=== PATIENT | female | born 1950 | race Caucasian/White ===

== ENCOUNTER 2017-05-03 10:38 | Inpatient (IN) | payer BC, MEDICARE ==
[~2017-05-03] VITALS: Ht 160 cm; Wt 76.2 kg
[~2017-05-03 10:38] MED LIST: CA/D1TAB11 PO; ERGO500027 PO; FAMO40TA4 PO; FOLI1TAB16 PO; HYDR200T5 PO; LEVO500T59 PO; Lisinopril PO; METH2.5T PO; PANT40TA5 PO; PRED20TA PO; PROAIR HFA8.5 GM IH; TRAM50TA PO
[2017-05-03] MEDS ORDERED: IPRATRPIUM/ALBUTEROL 0.5/2.5MG 3 ML NEBU. NEB ONE (11:15)
--- NOTE | 2017-05-03 11:42 | RAD ---
AP portable chest radiograph 05/03/2017 Clinical History: Shortness of breath. An AP portable erect digital radiograph of the chest was obtained. Comparison study is dated 04/29/2014. The cardiac silhouette is normal in size. The thoracic aorta is tortuous. Atherosclerotic calcification of the thoracic aorta is seen. No acute pulmonary infiltrate is noted. No pneumothorax or pleural effusion is seen. Degenerative changes are seen involving the thoracic spine and both shoulders. Impression: No acute abnormality is seen.
--- NOTE | 2017-05-03 11:45 | EKG ---
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
[2017-05-03 11:49] LABS: BASO % 1 % (0-3); EOS % 1 % (0-3); HEMATOCRIT 32.1 % (36.0-47.0); HEMOGLOBIN 10.5 g/dL (12.0-15.5); LYMPH # 0.6 x10^3/uL (1.0-4.8); LYMPH % 17 % (24-48); MEAN CORPUSCULAR HEMOGLOBIN 31 pg (25-35); MEAN CORPUSCULAR HGB CONC 33 g/dL (31-37); MEAN CORPUSCULAR VOLUME 95 fL (79-100); MONO % 5 % (0-9); NEUT % 77 % (31-73); PLATELET COUNT 217 x10^3/uL (140-400); RED BLOOD COUNT 3.37 x10^6/uL (3.50-5.40); RED CELL DISTRIBUTION WIDTH 17.2 % (11.5-14.5); WHITE BLOOD COUNT 3.3 x10^3/uL (4.0-11.0)
[2017-05-03 11:54] LABS: CALCIUM 9.3 mg/dL (8.5-10.1); CREATININE 0.9 mg/dL (0.6-1.0); GFR 62.6; POTASSIUM 4.8 mmol/L (3.5-5.1)
[2017-05-03 11:59] LABS: ALBUMIN 2.7 g/dL (3.4-5.0); DIRECT BILIRUBIN 0.3 mg/dL (0.0-0.2); TOTAL BILIRUBIN 0.9 mg/dL (0.2-1.0); TOTAL PROTEIN 7.4 g/dL (6.4-8.2)
[2017-05-03] MEDS ORDERED: ONDANSETRON PF 4 MG/2 ML VIAL. IV PRN ×2 (14:00)
[2017-05-03] MEDS ORDERED: methylPREDNISolone SOD SUCC PF 125 MG/2 ML VIAL. IV ONE (14:00)
[2017-05-03] MEDS ORDERED: MORPHINE SULFATE 2 MG/ML DISP.SYRIN. IV PRN (14:00)
--- NOTE | 2017-05-03 14:04 | PHYS DOC ---
Past Medical History Past Medical History: Anemia, Arthritis, CAD, GERD, High Cholesterol, Hypertension Additional Past Medical Histor: OSTEOPOROSIS, LUPUS Past Surgical History: Tubal ligation, Other Additional Past Surgical Histo: back surgery, carpal tunnel, finger Alcohol Use: None Drug Use: None Adult General Chief Complaint Chief Complaint: SHORTNESS OF BREATH HPI HPI 67-year-old female presenting to the emergency department with worsening cough and shortness of breath over the past 2 days. She denies chest pain or fever. She describes a sharp pain with deep inspiration that is nonradiating intermittent. She denies any recent unilateral leg swelling or hemoptysis. Review of systems is negative for abdominal pain nausea vomiting or diaphoresis. All other review of systems is negative unless otherwise noted in history of present illness. ED course: 67-year-old female presenting with worsening cough and shortness of breath. Patient's oxygen saturation was dynamic in the emergency department going up and down being placed on oxygen been taken off oxygen being put on oxygen again. She received a nebulizer in the emergency department which improved her symptoms initially however then she required more oxygen after watching her for a few minutes. Otherwise her EKG was unremarkable. EKG reviewed by myself shows sinus rhythm with a regular rate. ST segments congruent. Not consistent with ACS. Chest x-ray reviewed by myself shows no obvious pneumothorax or hemothorax. No obvious infiltrate present. Otherwise blood work shows mild leukopenia and elevation and proBNP. The patient denies any history of congestive heart failure and denies being on water pill. On physical examination there is wheezing bilaterally with mild crackles on the right more than left. Patient has 1+ edema trace edema in her legs. Otherwise physical exam shows a soft nontender abdomen. Given the elevation in proBNP and need of oxygen, the patient was admitted to our hospital for nebulizers and steroids for presumed probable COPD exacerbation. I placed a cardiology consult given the patient's proBNP elevation. Patient may end up getting an echocardiogram in the hospital. The patient was then admitted. Review of Systems Review of Systems SEE ABOVE. Current Medications Current Medications Current Medications Medications (Trade) Dose Ordered Sig/Elizabeth Start Time Stop Time Status Last Admin Dose Admin Albuterol/ Ipratropium (Duoneb) 3 ml 1X ONCE 05/03/17 11:15 05/03/17 11:16 DC 05/03/17 11:33 3 ML Allergies Allergies Allergies Coded Allergies Type Severity Reaction Last Updated Verified NSAIDS (Non-Steroidal Anti-Inflamma Allergy Intermediate 04/29/14 No aspirin Allergy Intermediate 04/29/14 No Physical Exam Physical Exam SEE ABOVE Constitutional: Well developed, well nourished, no acute distress, non-toxic appearance. [] HENT: Normocephalic, atraumatic, bilateral external ears normal, oropharynx moist, no oral exudates, nose normal. [] Eyes: PERRLA, EOMI, conjunctiva normal, no discharge. [] Neck: Normal range of motion, no tenderness, supple, no stridor. [] Cardiovascular:Heart rate regular rhythm, no murmur [] Lungs & Thorax: SEE ABOVE Abdomen: Bowel sounds normal, soft, no tenderness, no masses, no pulsatile masses. [] Skin: Warm, dry, no erythema, no rash. [] Back: No tenderness, no CVA tenderness. [] Extremities: No tenderness, no cyanosis, no clubbing, ROM intact, no edema. [] Neurologic: Alert and oriented X 3, normal motor function, normal sensory function, no focal deficits noted. [] Psychologic: Affect normal, judgement normal, mood normal. [] Current Patient Data Vital Signs Vital Signs Date Time Temp Pulse Resp B/P (MAP) Pulse Ox O2 Delivery O2 Flow Rate FiO2 05/03/17 13:48 72 16 112/68 (83) 100 Nasal Cannula 2.0 05/03/17 11:26 98.0 98.0 Lab Values Laboratory Tests Test 05/03/17 11:25 White Blood Count 3.3 x10^3/uL (4.0-11.0) L Red Blood Count 3.37 x10^6/uL (3.50-5.40) L Hemoglobin 10.5 g/dL (12.0-15.5) L Hematocrit 32.1 % (36.0-47.0) L Mean Corpuscular Volume 95 fL (79-100) Mean Corpuscular Hemoglobin 31 pg (25-35) Mean Corpuscular Hemoglobin Concent 33 g/dL (31-37) Red Cell Distribution Width 17.2 % (11.5-14.5) H Platelet Count 217 x10^3/uL (140-400) Neutrophils (%) (Auto) 77 % (31-73) H Lymphocytes (%) (Auto) 17 % (24-48) L Monocytes (%) (Auto) 5 % (0-9) Eosinophils (%) (Auto) 1 % (0-3) Basophils (%) (Auto) 1 % (0-3) Neutrophils # (Auto) 2.5 x10^3uL (1.8-7.7) Lymphocytes # (Auto) 0.6 x10^3/uL (1.0-4.8) L Monocytes # (Auto) 0.2 x10^3/uL (0.0-1.1) Eosinophils # (Auto) 0.0 x10^3/uL (0.0-0.7) Basophils # (Auto) 0.0 x10^3/uL (0.0-0.2) Sodium Level 136 mmol/L (136-145) Potassium Level 4.8 mmol/L (3.5-5.1) Chloride Level 101 mmol/L (98-107) Carbon Dioxide Level 30 mmol/L (21-32) Anion Gap 5 (6-14) L Blood Urea Nitrogen 16 mg/dL (7-20) Creatinine 0.9 mg/dL (0.6-1.0) Estimated GFR (Cockcroft-Gault) 62.6 Glucose Level 86 mg/dL (70-99) Calcium Level 9.3 mg/dL (8.5-10.1) Total Bilirubin 0.9 mg/dL (0.2-1.0) Direct Bilirubin 0.3 mg/dL (0.0-0.2) H Aspartate Amino Transferase (AST) 38 U/L (15-37) H Alanine Aminotransferase (ALT) 33 U/L (14-59) Alkaline Phosphatase 113 U/L (46-116) Troponin I Quantitative < 0.017 ng/mL (0.000-0.055) TD-Qsm-R-Type Natriuretic Peptide 2136 pg/mL (0-124) H Total Protein 7.4 g/dL (6.4-8.2) Albumin 2.7 g/dL (3.4-5.0) L Lipase 104 U/L (73-393) Laboratory Tests 05/03/17 11:25 Laboratory Tests 05/03/17 11:25 EKG EKG [] Radiology/Procedures Radiology/Procedures [] Course & Med Decision Making Course & Med Decision Making Pertinent Labs and Imaging studies reviewed. (See chart for details) [] Dragon Disclaimer Dragon Disclaimer This electronic medical record was generated, in whole or in part, using a voice recognition dictation system. Departure Departure Impression: Primary Impression: COPD (chronic obstructive pulmonary disease) with acute bronchitis Additional Impression: Elevated brain natriuretic peptide (BNP) level Disposition: ADMITTED INPATIENT Condition: STABLE Referrals: ZOHREH DEMPSEY MD (PCP) Problem Qualifiers FRANCIS MARES MD May 03, 2017 14:04
[2017-05-03] MEDS ORDERED: MORPHINE SULFATE 4 MG/ML DISP.SYRIN. IV PRN (14:15)
[2017-05-03] MEDS ORDERED: ATORVASTATIN CA80 MG PO (16:47)
[2017-05-03] MEDS ORDERED: ALEN70TA5 PO (16:47)
[2017-05-03] MEDS ORDERED: METO-239 PO (16:47)
[2017-05-03] MEDS ORDERED: CLOP75TA PO (16:47)
[2017-05-03] MEDS ORDERED: AZAT50TA PO ×2 (16:47)
[2017-05-03] MEDS ORDERED: ASPI-482 PO (16:47)
[2017-05-03] MEDS ORDERED: traMADol 50 MG TABLET PO PRN (18:30)
[2017-05-03 19:00] VITALS: BP 100/66
[2017-05-03] MEDS: HYDROXYCHLOROQUINE 200 MG TABLET PO SCH (20:36)
[2017-05-03 23:00] VITALS: BP 114/64
[2017-05-04 03:00] VITALS: BP 104/70
[2017-05-04 05:23] LABS: BASO % 0 % (0-3); EOS % 0 % (0-3); HEMATOCRIT 30.3 % (36.0-47.0); HEMOGLOBIN 10.2 g/dL (12.0-15.5); LYMPH # 0.1 x10^3/uL (1.0-4.8); LYMPH % 3 % (24-48); MEAN CORPUSCULAR HEMOGLOBIN 32 pg (25-35); MEAN CORPUSCULAR HGB CONC 34 g/dL (31-37); MEAN CORPUSCULAR VOLUME 94 fL (79-100); MONO % 1 % (0-9); NEUT % 95 % (31-73); PLATELET COUNT 214 x10^3/uL (140-400); RED BLOOD COUNT 3.23 x10^6/uL (3.50-5.40); RED CELL DISTRIBUTION WIDTH 16.9 % (11.5-14.5); WHITE BLOOD COUNT 4.3 x10^3/uL (4.0-11.0)
[2017-05-04 06:43] LABS: CALCIUM 9.2 mg/dL (8.5-10.1); CREATININE 0.9 mg/dL (0.6-1.0); GFR 62.6; POTASSIUM 4.7 mmol/L (3.5-5.1)
[2017-05-04 07:00] VITALS: BP 121/72
[2017-05-04] MEDS: ASPIRIN ENTERIC COATED 81 MG TABLET.DR. PO SCH (08:30)
[2017-05-04] MEDS: CLOPIDOGREL BISULFATE 75 MG TABLET PO SCH (08:30)
[2017-05-04] MEDS: HYDROXYCHLOROQUINE 200 MG TABLET PO SCH ×2 (08:30→08:36)
[2017-05-04] MEDS: FOLIC ACID 1 MG TABLET. PO SCH (08:30)
[2017-05-04] MEDS: azaTHIOprine 50 MG TABLET PO SCH (08:31)
[2017-05-04] MEDS: METOPROLOL SUCC 24HR ER 25 MG TAB.ER.24H. PO SCH (08:31)
[2017-05-04] MEDS: PANTOPRAZOLE 40 MG TABLET.DR. PO SCH (08:32)
[2017-05-04] MEDS ORDERED: ERGOCALCIFEROL (VITAMIN D2) 50,000 UNIT CAPSULE. PO SCH (09:00)
--- NOTE | 2017-05-04 09:10 | PDOC ---
Provider Note Provider Note [id number] acute resp fail ae of copd acute bronchitis smoker see orders. RHIANNON MARMOLEJO MD May 04, 2017 09:10
[2017-05-04 09:15] LABS: % EOS 1 % (0-5); PLT ESTIMATE ADEQUATE (ADEQUATE)
[2017-05-04] MEDS ORDERED: MAGNESIUM HYDROXIDE 2,400 MG/30 ML ORAL.SUSP. PO PRN (09:15)
[2017-05-04] MEDS ORDERED: ACETAMINOPHEN 325 MG TABLET. PO PRN (09:15)
[2017-05-04] MEDS ORDERED: AZITHROMYCIN 250 MG TABLET. PO ONE (09:30)
[2017-05-04] MEDS ORDERED: predniSONE 20 MG TABLET PO SCH (09:30)
[2017-05-04] MEDS ORDERED: ALBUTEROL SULFATE 2.5 MG/3 ML NEBU. NEB PRN (09:30)
--- NOTE | 2017-05-04 09:33 | PDOC ---
Provider Note Provider Note history and physical dictated # [id number] ZOHREH DEMPSEY MD May 04, 2017 09:33
[2017-05-04] MEDS: methylPREDNISolone SOD SUCC PF 40 MG/ML VIAL. IV SCH ×3 (10:16→21:01)
[2017-05-04 11:00] VITALS: BP 128/65
[2017-05-04] MEDS: IPRATRPIUM/ALBUTEROL 0.5/2.5MG 3 ML NEBU. NEB SCH ×4 (11:06→19:25)
[2017-05-04] MEDS: BUDESONIDE 0.5 MG/2 ML NEBU. NEB SCH ×2 (11:06→19:25)
[2017-05-04] MEDS ORDERED: CONTRAST GIVEN MC PRN (11:15)
[2017-05-04] MEDS ORDERED: IOHEXOL 300 MG/ML 75 ML VIAL IV ONE (11:30)
--- NOTE | 2017-05-04 12:02 | RAD ---
CT scan of the chest without contrast 05/04/2017 Clinical history: Shortness of breath. Technique: Unenhanced, contiguous, 5 mm axial sections were obtained through the chest and upper abdomen. One or more of the following individualized dose reduction techniques were utilized for this study: 1. Automated exposure control. 2. Adjustment of the mA and/or kV according to patient size. 3. Use of iterative reconstruction technique. Findings: Comparison study is dated 12/08/2015. Moderate atherosclerotic calcification of the thoracic aorta and its branches is noted. Extensive coronary artery calcifications are seen. The heart is borderline enlarged. The thoracic aorta is ectatic and tortuous, unchanged. Slightly prominent mediastinal lymph nodes are seen which measure 1 to 1.2 cm in size. These are unchanged. Moderate emphysematous changes are seen involving both lungs. Patchy areas of infiltrate/atelectasis are seen involving both lower lobes new since previous examination. No pneumothorax or pleural effusion is seen. Images through the upper abdomen demonstrate atherosclerotic calcification abdominal aorta. Minimal S shaped curvature of the thoracic lumbar spine is seen. Impression: Patchy areas of infiltrate/atelectasis are seen involving both lower lobes.
--- NOTE | 2017-05-04 12:27 | PDOC2 ---
CONSULT Date of Consult Date of Consult DATE: 05/04/17 TIME: 12:26 Reason for Consult Reason for Consult: Elevated BNP level Referring Physician Referring Physician: Dr. Desir Identification/Chief Complaint Chief Complaint Shortness of breath Problems: Source Source: Chart review, Patient History of Present Illness Reason for Visit: 67-year-old female presented with progressive shortness of breath and cough and was diagnosed with acute respiratory failure from acute COPD exacerbation. Cardiology has been consulted for elevated BNP level. Patient stated that her dyspnea has improved since admission. She denied any chest pain, orthopnea, palpitations or syncope. Past Medical History Cardiovascular: No pertinent hx Pulmonary: No pertinent hx CENTRAL NERVOUS SYSTEM: Other GI: GERD Heme/Onc: No pertinent hx Hepatobiliary: No pertinent hx Psych: No pertinent hx Musculoskeletal: low back pain, Osteoarthritis, Other Rheumatologic: Rheumatoid arthritis Infectious disease: No pertinent hx Renal/: No pertinent hx Endocrine: No pertinent hx Past Surgical History Past Surgical History: Tubal Ligation, Tonsillectomy, Other Family History Family History: Coronary Artery Disease Social History ALCOHOL: none Drugs: None Lives: with Family Domestic Violence: Neg Current Problem List Problem List Problems Medical Problems: (1) COPD (chronic obstructive pulmonary disease) with acute bronchitis Status: Acute (2) Elevated brain natriuretic peptide (BNP) level Status: Acute Current Medications Current Medications Current Medications Albuterol/ Ipratropium (Duoneb) 3 ml 1X ONCE NEB Last administered on 11:33; Start 05/03/17 at 11:15; Stop 05/03/17 at 11:16; Status DC Methylprednisolone Sodium Succinate (SOLU-Medrol 125MG VIAL) 125 mg 1X ONCE IV Last administered on 05/03/17 14:00; Start 05/03/17 at 14:00; Stop 05/03/17 at 14:01; Status DC Ondansetron HCl (Zofran) 4 mg PRN Q8HRS PRN IV NAUSEA/VOMITING; Start 05/03/17 at 14:00; Stop 05/04/17 at 13:59; Status Cancel Morphine Sulfate 2 mg PRN Q2HR PRN IV PAIN; Start 05/03/17 at 14:00; Stop 05/04 at 13:59; Status Cancel Ondansetron HCl (Zofran) 4 mg PRN Q8HRS PRN IV NAUSEA/VOMITING; Start 05/03/17 at 14:00; Stop 05/04/17 at 13:59 Morphine Sulfate 2 mg PRN Q2HR PRN IV PAIN; Start 05/03/17 at 14:15; Stop 05/04 at 14:14 Aspirin (Ecotrin) 81 mg DAILY PO Last administered on 05/04/17 08:30; Start at 09:00 Azathioprine (Imuran) 100 mg DAILY PO Last administered on 05/04/17 08:31; Start 05/04/17 at 09:00 Clopidogrel Bisulfate (Plavix) 75 mg DAILY PO Last administered on 05/04/17 08 :30; Start 05/04/17 at 09:00 Ergocalciferol (Vitamin D2) 50,000 unit Soliz PO Last administered on 05/04/17 08 :30; Start 05/04/17 at 09:00 Folic Acid (Folic Acid) 1 mg DAILY PO Last administered on 05/04/17 08:30; Start 05/04/17 at 09:00 Hydroxychloroquine Sulfate (Plaquenil) 200 mg BID PO Last administered on 08:36; Start 05/03/17 at 21:00 Metoprolol Succinate (Toprol Xl) 25 mg DAILY PO Last administered on 05/04/17 08:31; Start 05/04/17 at 09:00 Pantoprazole Sodium (Protonix) 40 mg DAILYAC PO Last administered on 05/04/17 08:32; Start 05/04/17 at 07:30 Tramadol HCl (Ultram) 2,500 mg PRN QID PRN PO PAIN; Start 05/03/17 at 18:30; Status Cancel Albuterol/ Ipratropium (Duoneb) 3 ml RTQID NEB Last administered on 05/04/17 11:06; Start 05/04/17 at 09:30 Prednisone (Prednisone) 40 mg DAILY PO ; Start 05/04/17 at 09:30; Stop 05/04/17 at 09:30; Status DC Budesonide (Pulmicort) 0.5 mg RTBID NEB Last administered on 05/04/17 11:06; Start 05/04/17 at 09:30 Ceftriaxone Sodium 1 gm/ Sodium Chloride 50 ml @ 100 mls/hr Q24H IV Last administered on 05/04/17 10:17; Start 05/04/17 at 10:00 Azithromycin (Zithromax) 500 mg 1X ONCE PO Last administered on 05/04/17 10: 17; Start 05/04/17 at 09:30; Stop 05/04/17 at 09:31; Status DC Azithromycin (Zithromax) 250 mg DAILY PO ; Start 05/05/17 at 09:00 Atorvastatin Calcium (Lipitor) 10 mg QHS PO ; Start 05/04/17 at 21:00 Methylprednisolone Sodium Succinate (SOLU-Medrol 40MG VIAL) 40 mg Q8HRS IV Last administered on 05/04/17 10:16; Start 05/04/17 at 10:00 Albuterol Sulfate (Ventolin Neb Soln) 2.5 mg PRN Q4HRS PRN NEB SHORTNESS OF BREATH; Start 05/04/17 at 09:30 Acetaminophen (Tylenol) 650 mg PRN Q6HRS PRN PO MILD PAIN / TEMP; Start at 09:15 Magnesium Hydroxide (Milk Of Magnesia) 2,400 mg PRN DAILY PRN PO CONSTIPATION; Start 05/04/17 at 09:15 Iohexol (Omnipaque 300 Mg/ml) 75 ml 1X ONCE IV Last administered on 05/04/17 12:01; Start 05/04/17 at 11:30; Stop 05/04/17 at 11:31; Status DC Info (Do NOT chart on this entry -- for MONITORING) 1 each PRN DAILY PRN MC SEE COMMENTS; Start 05/04/17 at 11:15; Stop 05/06/17 at 11:14 Active Scripts Active [Lisinopril] 2.5 MG Tablet 2.5 Mg PO DAILY Levaquin (Levofloxacin) 500 Mg Tablet 500 Mg PO DAILY06 Reported Alendronate Sodium 70 Mg Tablet 70 Mg PO WEEKLY Azathioprine 50 Mg Tablet 2 Tab PO DAILY Azathioprine 50 Mg Tablet 50 Mg PO Aspir 81 (Aspirin) 81 Mg Tablet.dr 1 Tab PO DAILY Metoprolol Succinate ( Xl ) (Metoprolol Succinate) 25 Mg Tab.er.24h 1 Tab PO DAILY Atorvastatin Calcium 80 Mg Tablet 1 Tab PO DAILY Clopidogrel (Clopidogrel Bisulfate) 75 Mg Tablet 75 Mg PO DAILY Vitamin D2 (Ergocalciferol (Vitamin D2)) 50,000 Unit Capsule 50,000 Unit PO Caltrate 600+D3+Min Chew Tab (Ca/D3/Mag/Zinc/Osvaldo/Marek/Mgbor) 1 Each Tab.chew 1 Each PO Prednisone 20 Mg Tablet 1 Tab PO DAILY Indication: steroid Next dose: 05/02/14 Taper as directed. Proair Hfa Inhaler (Albuterol Sulfate) 8.5 Gm Hfa.aer.ad 2 Puff IH PRN Q4-6HRS Indication: shortness of breath Next dose: 05/01/14 as needed Famotidine 40 Mg Tablet 40 Mg PO HS Indication: GERD Next dose: 05/01/14 bedtime Tramadol Hcl 50 Mg Tablet 50 Tab PO QIDPRN PRN Indication: pain NExt dose: 05/01/14 pm Hydroxychloroquine Sulfate 200 Mg Tablet 1 Tab PO BID Indication: arthritis Next dose: 05/01/14 pm Folic Acid 1 Mg Tablet 1 Tab PO DAILY INdication: supplement Next dose: 05/02/14 am Pantoprazole Sodium 40 Mg Tablet.dr 1 Tab PO DAILY Indication: stomach Next dose: 05/02/14 am Allergies Allergies: Coded Allergies: NSAIDS (Non-Steroidal Anti-Inflamma (Verified Allergy, Intermediate, ) aspirin (Verified Allergy, Intermediate, 05/04/17) ROS PSYCHOLOGICAL ROS: No: Hallucinations Eyes: No Loss of vision HEENT: No: Epistaxis Respiratory: YES: Shortness of breath, No: Hemoptysis Cardiovascular: No Chest Pain Gastrointestinal: No Vomiting, No Diarrhea Genitourinary: No Hematuria Neurological: No Dizziness, No Seizures Skin: No Rash Physical Exam General: Alert, Oriented X3 HEENT: Atraumatic, PERRLA Lungs: Other (scattered rhonchi) Heart: Regular rate Abdomen: Soft, No tenderness Extremities: Other (trace edema) Psych/Mental Status: Mood NL Vitals VITALS Vital Signs Date Time Temp Pulse Resp B/P (MAP) Pulse Ox O2 Delivery O2 Flow Rate FiO2 05/04/17 11:09 99 Nasal Cannula 2.0 05/04/17 11:00 98.8 74 18 128/65 (86) 98.8 Labs Labs Laboratory Tests Test 05/03/17 11:25 05/03/17 19:35 05/04/17 02:30 05/04/17 03:30 White Blood Count 3.3 x10^3/uL (4.0-11.0) 4.3 x10^3/uL (4.0-11.0) Red Blood Count 3.37 x10^6/uL (3.50-5.40) 3.23 x10^6/uL (3.50-5.40) Hemoglobin 10.5 g/dL (12.0-15.5) 10.2 g/dL (12.0-15.5) Hematocrit 32.1 % (36.0-47.0) 30.3 % (36.0-47.0) Mean Corpuscular Volume 95 fL (79-100) 94 fL (79-100) Mean Corpuscular Hemoglobin 31 pg (25-35) 32 pg (25-35) Mean Corpuscular Hemoglobin Concent 33 g/dL (31-37) 34 g/dL (31-37) Red Cell Distribution Width 17.2 % (11.5-14.5) 16.9 % (11.5-14.5) Platelet Count 217 x10^3/uL (140-400) 214 x10^3/uL (140-400) Neutrophils (%) (Auto) 77 % (31-73) 95 % (31-73) Lymphocytes (%) (Auto) 17 % (24-48) 3 % (24-48) Monocytes (%) (Auto) 5 % (0-9) 1 % (0-9) Eosinophils (%) (Auto) 1 % (0-3) 0 % (0-3) Basophils (%) (Auto) 1 % (0-3) 0 % (0-3) Neutrophils # (Auto) 2.5 x10^3uL (1.8-7.7) 4.1 x10^3uL (1.8-7.7) Lymphocytes # (Auto) 0.6 x10^3/uL (1.0-4.8) 0.1 x10^3/uL (1.0-4.8) Monocytes # (Auto) 0.2 x10^3/uL (0.0-1.1) 0.0 x10^3/uL (0.0-1.1) Eosinophils # (Auto) 0.0 x10^3/uL (0.0-0.7) 0.0 x10^3/uL (0.0-0.7) Basophils # (Auto) 0.0 x10^3/uL (0.0-0.2) 0.0 x10^3/uL (0.0-0.2) Sodium Level 136 mmol/L (136-145) Potassium Level 4.8 mmol/L (3.5-5.1) Chloride Level 101 mmol/L (98-107) Carbon Dioxide Level 30 mmol/L (21-32) Anion Gap 5 (6-14) Blood Urea Nitrogen 16 mg/dL (7-20) Creatinine 0.9 mg/dL (0.6-1.0) Estimated GFR (Cockcroft-Gault) 62.6 Glucose Level 86 mg/dL (70-99) Calcium Level 9.3 mg/dL (8.5-10.1) Total Bilirubin 0.9 mg/dL (0.2-1.0) Direct Bilirubin 0.3 mg/dL (0.0-0.2) Aspartate Amino Transf (AST/SGOT) 38 U/L (15-37) Alanine Aminotransferase (ALT/SGPT) 33 U/L (14-59) Alkaline Phosphatase 113 U/L (46-116) Troponin I Quantitative < 0.017 ng/mL (0.000-0.055) < 0.017 ng/mL (0.000-0.055) < 0.017 ng/mL (0.000-0.055) IJ-Gtp-E-Type Natriuretic Peptide 2136 pg/mL (0-124) Total Protein 7.4 g/dL (6.4-8.2) Albumin 2.7 g/dL (3.4-5.0) Lipase 104 U/L (73-393) Segmented Neutrophils % 84 % (35-66) Band Neutrophils % 3 % (0-9) Lymphocytes % 11 % (24-48) Monocytes % 1 % (0-10) Eosinophils % 1 % (0-5) Platelet Estimate Adequate (ADEQUATE) Test 05/04/17 05:00 05/04/17 09:40 Sodium Level 138 mmol/L (136-145) Potassium Level 4.7 mmol/L (3.5-5.1) Chloride Level 100 mmol/L (98-107) Carbon Dioxide Level 26 mmol/L (21-32) Anion Gap 12 (6-14) Blood Urea Nitrogen 20 mg/dL (7-20) Creatinine 0.9 mg/dL (0.6-1.0) Estimated GFR (Cockcroft-Gault) 62.6 Glucose Level 172 mg/dL (70-99) Calcium Level 9.2 mg/dL (8.5-10.1) D-Dimer (Juliana) 2.40 ug/mlFEU (0.00-0.50) Laboratory Tests Test 05/03/17 19:35 05/04/17 02:30 05/04/17 03:30 05/04/17 05:00 Troponin I Quantitative < 0.017 ng/mL (0.000-0.055) < 0.017 ng/mL (0.000-0.055) White Blood Count 4.3 x10^3/uL (4.0-11.0) Red Blood Count 3.23 x10^6/uL (3.50-5.40) Hemoglobin 10.2 g/dL (12.0-15.5) Hematocrit 30.3 % (36.0-47.0) Mean Corpuscular Volume 94 fL (79-100) Mean Corpuscular Hemoglobin 32 pg (25-35) Mean Corpuscular Hemoglobin Concent 34 g/dL (31-37) Red Cell Distribution Width 16.9 % (11.5-14.5) Platelet Count 214 x10^3/uL (140-400) Neutrophils (%) (Auto) 95 % (31-73) Lymphocytes (%) (Auto) 3 % (24-48) Monocytes (%) (Auto) 1 % (0-9) Eosinophils (%) (Auto) 0 % (0-3) Basophils (%) (Auto) 0 % (0-3) Neutrophils # (Auto) 4.1 x10^3uL (1.8-7.7) Lymphocytes # (Auto) 0.1 x10^3/uL (1.0-4.8) Monocytes # (Auto) 0.0 x10^3/uL (0.0-1.1) Eosinophils # (Auto) 0.0 x10^3/uL (0.0-0.7) Basophils # (Auto) 0.0 x10^3/uL (0.0-0.2) Segmented Neutrophils % 84 % (35-66) Band Neutrophils % 3 % (0-9) Lymphocytes % 11 % (24-48) Monocytes % 1 % (0-10) Eosinophils % 1 % (0-5) Platelet Estimate Adequate (ADEQUATE) Sodium Level 138 mmol/L (136-145) Potassium Level 4.7 mmol/L (3.5-5.1) Chloride Level 100 mmol/L (98-107) Carbon Dioxide Level 26 mmol/L (21-32) Anion Gap 12 (6-14) Blood Urea Nitrogen 20 mg/dL (7-20) Creatinine 0.9 mg/dL (0.6-1.0) Estimated GFR (Cockcroft-Gault) 62.6 Glucose Level 172 mg/dL (70-99) Calcium Level 9.2 mg/dL (8.5-10.1) Test 05/04/17 09:40 D-Dimer (Juliana) 2.40 ug/mlFEU (0.00-0.50) Assessment/Plan Assessment/Plan 1. Acute respiratory failure secondary to acute COPD exacerbation. Symptoms improved since admission. Continue current treatment per pulmonary team. 2. Elevated BNP level: Patient does not have any overt clinical evidence for congestive heart failure. Cardiac enzymes negative. Chest x-ray did not show any increased pulmonary vascularity. CT chest did not show any pulmonary embolism. Check 2-D echocardiogram to assess LV systolic and diastolic function. 3. Hypertension: Well-controlled. 4. Hyperlipidemia: Continue statin therapy Thank you for your consultation ADELITA LEMONS MD May 04, 2017 12:27
--- NOTE | 2017-05-04 12:45 | RAD ---
CTA of the chest with contrast (pulmonary embolism protocol) 05/04/2017 Clinical History: Cough and shortness of breath.. Technique: After the intravenous administration of 75 mL of Omnipaque 300, contiguous, 0.625 mm axial sections were obtained through the chest. 2 mm reconstructed axial 3-D MIP coronal and sagittal reconstructed images were obtained. One or more of the following individualized dose reduction techniques were utilized for this study: 1. Automated exposure control. 2. Adjustment of the mA and/or kV according to patient size. 3. Use of iterative reconstruction technique. Findings: Comparison study is dated earlier today. No filling defects are seen within the major branches of either pulmonary artery. There is no CT evidence of pulmonary embolism. Moderate atherosclerotic calcification of the thoracic aorta is seen. Extensive coronary artery calcifications are noted. The heart is borderline enlarged. The thoracic aorta is ectatic and tortuous, unchanged. Moderate emphysematous changes are seen involving both lungs. Patchy areas of infiltrate/atelectasis are seen involving both lower lobes, unchanged. No pneumothorax or pleural effusion is seen. Impression: No CT evidence of pulmonary embolism.
[2017-05-04 15:06] VITALS: BP 125/68
[2017-05-04 19:00] VITALS: BP 97/58
--- NOTE | 2017-05-04 20:12 | CONS ---
DATE OF CONSULTATION: 05/04/2017 REASON FOR CONSULTATION: I was asked to see this 67-year-old lady for acute respiratory failure, acute exacerbation of COPD. HISTORY OF PRESENT ILLNESS: She does have history of 55-bzcc-stcy smoking, continues to smoke half pack per day. She is on oxygen at night. She does have COPD. She is followed by Dr. Neal. She started to have increased shortness of breath, cough, nasal congestion, clear to sputum production a few days ago. Her shortness of breath is getting worse. She presented to the Emergency Room. Her oxygen saturation was low at the beginning, she was started on oxygen. She has not had chest tightness, but mild chest pain. She denies gastroesophageal reflux symptoms. PAST MEDICAL HISTORY: Coronary artery disease; lupus; COPD, on nocturnal oxygen; gastroesophageal reflux disease; and hypertension. ALLERGIES: NSAIDs. MEDICATIONS: Currently, she is on Toprol, folic acid, vitamin D, Plavix, Imuran, Ecotrin, Protonix, Plaquenil and Ultram. SOCIAL HISTORY: History of 32-[id number]-yujs smoking, continues to smoke half pack per day. FAMILY HISTORY: Hypertension. REVIEW OF SYSTEMS: As mentioned as above, other systems otherwise negative. PHYSICAL EXAMINATION: GENERAL: This is pale lady. VITAL SIGNS: Her O2 saturation on 3 liters of oxygen is 96%, respiratory rate 18, heart rate 88, blood pressure 121/72, temperature 98.2. HEENT: Normocephalic, atraumatic. Pupils equal, round, reactive to light. Throat is clear. Nose: There is inflamed mucosa. NECK: There is no JVD, lymphadenopathy or thyromegaly. CARDIOVASCULAR: Regular rate and rhythm. PMI is nondisplaced. CHEST: Inspection is normal. LUNGS: There is end-expiratory wheezing. ABDOMEN: Soft. Bowel sounds are good. There is no mass. EXTREMITIES: There is no edema. LYMPHATICS: There is no lymphadenopathy. NEUROLOGIC: Alert and oriented. SKIN: Warm. LABORATORY DATA: I reviewed the following lab data: Chest x-ray does not show any infiltrate. WBC 4.3, hemoglobin 10.2, platelets 214. Sodium 138, potassium 4.7, chloride 100, CO2 26, glucose 172, BUN 20, creatinine 0.9. BNP 2136. Troponin less than 0.1. IMPRESSION: 1. Acute respiratory failure secondary to acute exacerbation of chronic obstructive pulmonary disease, acute bronchitis. 2. Acute exacerbation of chronic obstructive pulmonary disease. 3. Acute bronchitis. 4. Elevated BNP? congestive heart failure. 5. Coronary artery disease. 6. Lupus, immunocompromised. 7. Tobacco habituation. 8. Gastroesophageal reflux disease. 9. Hypertension. PLAN AND RECOMMENDATIONS: 1. I had a long discussion with her regarding smoking cessation. I have advised her to stop smoking forever. 2. Titrate FiO2 to keep O2 saturation 92%. 3. Start bronchodilator. 4. Start inhaled corticosteroid. 5. Prednisone 40 mg daily. 6. She may require Solu-Medrol. 7. Rocephin 1 gram IV daily. 8. Azithromycin. 9. She has history of 65-ytax-qlsy smoking, continues to smoke. I do recommend a low dose CT of the chest. 10. Lovenox for DVT prophylaxis. 11. Protonix for stress ulcer prophylaxis. 12. Monitor respiratory status very closely. Thank you very much for allowing me to participate in care of this very nice lady. The findings and recommendations were discussed with the patient. She understood and agreed to proceed with the plan. I have answered all of her questions. RHIANNON MARMOLEJO M.D. : TONG/jeanine JOB#: [id number] / [id number]
--- NOTE | 2017-05-04 20:14 | HP ---
ADMIT DATE: 05/03/2017 LOCATION: She is in room 538. HISTORY OF PRESENT ILLNESS: The patient is a 67-year-old white female with history of chronic obstructive pulmonary disease and coronary artery disease as well as rheumatoid arthritis and interstitial lung disease, possibly secondary to rheumatoid arthritis, was admitted to [facility] at the Emergency Room on 05/03/2017 with a 2-day history of shortness of breath. She notes increasing shortness of breath for the last 2 days and then coughing up some clear sputum and some clear nasal discharge without sneezing. She uses oxygen at bedtime, but not during the day and did not have a nebulizer she says at home. She also had some chest discomfort, which she describes as dull when she took a deep breath, although she is pain free this morning. In the Emergency Room, a chest x-ray showed no acute abnormality. EKG showed normal sinus rhythm with no acute abnormality and she was subsequently admitted to the hospital and started on steroids and IV Rocephin and Zithromax. She is pain free this morning and is not short of breath on oxygen per nasal cannula. ALLERGIES AND INTOLERANCES: INCLUDE NONSTEROIDAL ANTI-INFLAMMATORY DRUGS AND ASPIRIN. MEDICATIONS: Include, she is on Fosamax, I believe the dose is 70 mg weekly. She is on aspirin 81 mg every day currently; atorvastatin, she could not remember the dose that she takes once a day; Imuran 100 mg every day, Plavix 75 mg every day, vitamin D 50,000 units every Friday, folic acid 1 mg every day, Plaquenil 200 mg b.i.d., metoprolol succinate 25 mg every day, Protonix 40 mg every day. PAST MEDICAL HISTORY: Significant for rheumatoid arthritis with interstitial lung disease, suspected due to rheumatoid arthritis. She has a history of rheumatoid arthritis and osteoarthritis. Chronic obstructive pulmonary disease, gastroesophageal reflux disease, coronary artery disease and apparently had a coronary angioplasty and stent x 2 in 2015. She has a history of stomach ulcers in the past, hiatal hernia, esophagitis, colon polyps in 2012. She had an EGD and colonoscopy in 2012. She had bilateral tubal ligation in 1973, back surgery in 1986, carpal tunnel release in 1984. She had some surgery on her fingers for trauma in 1988. SOCIAL HISTORY: She does not drink alcohol. She did smoke a pack a day of cigarettes in the past, she quit about a year ago. She is . FAMILY HISTORY: Noncontributory. REVIEW OF SYSTEMS: GENERAL: She denies any fever, chills or sweats in the last 3 days. CARDIOVASCULAR: No chest pain, but she had some dull chest pain when she took a deep breath yesterday. PULMONARY: She had a cough with clear sputum and had some discomfort in her chest when she took a deep breath. GASTROINTESTINAL: No constipation. SKIN: No rashes. NEUROLOGIC: No focal weakness. ENDOCRINE: No diabetes mellitus. SKIN: No rashes. The rest of systems reviewed are negative except as stated in history of present illness. PHYSICAL EXAMINATION: VITAL SIGNS: Temperature 98.2 degrees, pulse from my exam was 72 and regular, respiratory rate 18, blood pressure 121/72, oxygen saturation 97% on 3 liters per nasal cannula. HEENT: Eyes: Gaze is conjugate. Mouth: Tongue is midline. She wears dentures. NECK: No cervical lymphadenopathy or thyroid enlargement. HEART: Reveals an S1, S2. There is no S3 or murmur. LUNGS: Reveal decreased breath sounds and few rhonchi and she coughs with deep inspiration consistent with bronchospasm. ABDOMEN: Soft with no hepatosplenomegaly, masses or tenderness. EXTREMITIES: Lower extremities without edema. SKIN: No rashes. NEUROLOGIC: No focal weakness of the extremities or facial asymmetry. LABORATORY DATA: The white count was 3.3 yesterday, 4.3 today, hemoglobin 10.2, platelet count 214,000, 95 polys and 3 lymphocytes. Sodium 136, potassium 4.8, chloride 101, total CO2 of 30, BUN 16, creatinine 0.9. SGOT 38. Other liver function tests normal. Albumin 2.7. EKG showed normal sinus rhythm with no acute change. The chest x-ray showed no acute abnormality. Heart size was normal. There was no pulmonary infiltrate, pneumothorax or pleural effusions seen. Review of her labs, also troponin level was negative x 3, but her proBNP was increased at 2136. It should be noted an echocardiogram done in 2013 showed a preserved left ventricular ejection fraction. ASSESSMENT: 1. Chronic obstructive pulmonary disease with acute exacerbation. 2. Acute bronchitis. 3. Coronary artery disease. 4. Rheumatoid arthritis with interstitial lung disease. 5. Hyperlipidemia. 6. Gastroesophageal reflux disease. 7. Anemia of chronic disease. 8. Moderate protein calorie malnutrition. PLAN: At this time is to consult Dr. Neal for Pulmonary, Dr. Crowell for Cardiology. We will obtain an echocardiogram. We will order a stat D-dimer. If it is elevated, we will get a CAT scan and chest angiogram to rule out pulmonary embolus. We will treat her with IV Solu-Medrol and DuoNeb nebulizer treatments. SCDs for deep vein thrombosis prophylaxis has been ordered and we will also continue with her Protonix. For her coronary artery disease, we will continue with the aspirin and metoprolol and also with her atorvastatin for her hyperlipidemia. Continue her Plavix also. We have ordered budesonide nebulizer treatments also for her COPD. ZOHREH DEMPSEY MD DR: PALMER/jeanine JOB#: [id number] / [id number]
[2017-05-04] MEDS: ATORVASTATIN CALCIUM 10 MG TABLET. PO SCH (21:01)
[2017-05-04 23:00] VITALS: BP 91/52
[2017-05-05 03:00] VITALS: BP 116/84
[2017-05-05 04:57] LABS: CHOLESTEROL/HDL RATIO 2.6
[2017-05-05] MEDS: methylPREDNISolone SOD SUCC PF 40 MG/ML VIAL. IV SCH ×2 (05:42→20:16)
[2017-05-05 07:00] VITALS: BP 122/67
[2017-05-05] MEDS: IPRATRPIUM/ALBUTEROL 0.5/2.5MG 3 ML NEBU. NEB SCH ×4 (07:43→20:04)
[2017-05-05] MEDS: BUDESONIDE 0.5 MG/2 ML NEBU. NEB SCH ×2 (07:43→20:04)
[2017-05-05] MEDS: FOLIC ACID 1 MG TABLET. PO SCH (08:58)
[2017-05-05] MEDS: AZITHROMYCIN 250 MG TABLET. PO SCH (08:59)
[2017-05-05] MEDS: azaTHIOprine 50 MG TABLET PO SCH (08:59)
[2017-05-05] MEDS: HYDROXYCHLOROQUINE 200 MG TABLET PO SCH ×2 (09:00→20:15)
[2017-05-05] MEDS: CLOPIDOGREL BISULFATE 75 MG TABLET PO SCH (09:00)
[2017-05-05] MEDS: PANTOPRAZOLE 40 MG TABLET.DR. PO SCH (09:00)
[2017-05-05] MEDS: ASPIRIN ENTERIC COATED 81 MG TABLET.DR. PO SCH (09:00)
[2017-05-05] MEDS: METOPROLOL SUCC 24HR ER 25 MG TAB.ER.24H. PO SCH (09:02)
--- NOTE | 2017-05-05 09:47 | CARD ---
APPROVED REPORT EXAM: Two-dimensional and M-mode echocardiogram with Doppler and color Doppler. Other Information Quality : Average Rhythm : NSR INDICATION Dyspnea LV Function:Systolic 2D DIMENSIONS RVDd3.1 (2.9-3.5cm)Left Atrium(2D)3.4 (1.6-4.0cm) IVSd1.0 (0.7-1.1cm)Aortic Root(2D)3.1 (2.0-3.7cm) LVDd5.3 (3.9-5.9cm)LVOT Diameter2.2 (1.8-2.4cm) PWd1.0 (0.7-1.1cm)LVDs3.5 (2.5-4.0cm) FS (%) 32.0 %SV83.5 ml LVEF(%)60.4 (>50%) Aortic Valve AoV Peak Saurabh.152.0cm/sAoV VTI27.1cm AO Peak GR.9.2mmHgLVOT Peak Saurabh.155.2cm/s LVOT VTI 28.68cmAO Mean GR.5mmHg CHIN (VMAX)3.68mx9VAO (VTI)4.01cm2 Mitral Valve MV E Bzultinf216.3cm/sMV DECEL [id number] MV A Bkdhqvnb28.9cm/sMV OVZ28zn E/A Ratio1.3MV A [id number] MVA (PHT)4.02cm2 TDI E/Lateral E'9.9E/Medial E'11.1 Pulmonary Valve PV Peak Lybpuefp535.6cm/sPV Peak Grad.7mmHg RVOT VTI13.4cm Tricuspid Valve TR P. Nmaizmpd997gj/sRAP UCSSYXCS2ivBv TR Peak Gr.76qoImMIFY62gyCy LEFT VENTRICLE The left ventricle is normal size. There is normal left ventricular wall thickness. Left ventricle sy stolic function is normal. The Ejection Fraction is 55-60%. There is normal LV segmental wall motion. The left ventricular diastolic function and filling is normal for age. There is no ventricular septa l defect visualized. RIGHT VENTRICLE The right ventricle is normal size. The right ventricular systolic function is normal. ATRIA The left atrium size is normal. The right atrium size is normal. The interatrial septum is intact wit h no evidence for an atrial septal defect or patent foramen ovale as noted on 2-D or Doppler imaging. AORTIC VALVE The aortic valve is normal in structure and function. The aortic valve is trileaflet. Doppler and Col or Flow revealed no significant aortic regurgitation. There is no significant aortic valvular stenosi s. MITRAL VALVE The mitral valve is normal in structure. There is no mitral valve stenosis. Doppler and Color Flow re vealed mild mitral regurgitation. TRICUSPID VALVE The tricuspid valve is normal in structure and function. Doppler and Color Flow revealed mild tricusp id regurgitation. The PA pressure was estimated at 45 mmHg. There is no tricuspid valve stenosis. PULMONIC VALVE The pulmonic valve is not well visualized. Doppler and Color Flow revealed no pulmonic valvular regur gitation. There is no pulmonic valvular stenosis. GREAT VESSELS The aortic root is normal in size. The ascending aorta is normal in size. Normal pulmonary venous latrell w (Doppler). The IVC is normal in size and collapses >50% with inspiration. PERICARDIAL EFFUSION There is no evidence of significant pericardial effusion. Critical Notification Critical Value: No <Conclusion> Left ventricle systolic function is normal. The Ejection Fraction is 55-60%. There is normal LV segmental wall motion. Mild mitral regurgitation. Mild tricuspid regurgitation. The PA pressure was estimated at 45 mmHg. There is no evidence of significant pericardial effusion.
--- NOTE | 2017-05-05 10:23 | PDOC ---
PROGRESS NOTES Subjective Subjective feels better. CT chest angiogram neg for PE. has bilateral LE lung infiltrates and atelactasis. echo showed a preserved LVEF. Objective Objective Vital Signs Date Time Temp Pulse Resp B/P (MAP) Pulse Ox O2 Delivery O2 Flow Rate FiO2 05/05/17 09:02 77 122/67 05/05/17 08:00 Nasal Cannula 3.0 05/05/17 07:43 99 05/05/17 07:00 98.7 18 98.7 Intake and Output 05/06/17 07:00 Intake Total 300 ml Balance 300 ml Intake Oral 300 ml Physical Exam Abdomen: Soft Heart: Regular rate, Normal S1, Normal S2 Extremities: No edema General: Alert HEENT: Atraumatic Lungs: Clear to auscultation, Other (decreased bilateral breath sounds) Neuro: Normal speech Psych/Mental Status: Mental status NL Skin: No rashes Assessment Assessment Problems1. Chronic obstructive pulmonary disease with acute exacerbation. improving 2. Acute bronchitis. 3. Coronary artery disease. 4. Rheumatoid arthritis with interstitial lung disease. 5. Hyperlipidemia. 6. Gastroesophageal reflux disease. 7. Anemia of chronic disease. 8. Moderate protein calorie malnutrition. Medical Problems: (1) COPD (chronic obstructive pulmonary disease) with acute bronchitis Status: Acute (2) Elevated brain natriuretic peptide (BNP) level Status: Acute Plan Plan of Care decrease iv solumedrol continue duoneb and budesonide nebulizer rx continue iv rocphin and zithromax continue oxygen Comment Review of Relevant I have reviewed the following items mata (where applicable) has been applied. Labs Laboratory Tests Test 05/03/17 11:25 05/03/17 19:35 05/04/17 02:30 05/04/17 03:30 White Blood Count 3.3 x10^3/uL (4.0-11.0) 4.3 x10^3/uL (4.0-11.0) Red Blood Count 3.37 x10^6/uL (3.50-5.40) 3.23 x10^6/uL (3.50-5.40) Hemoglobin 10.5 g/dL (12.0-15.5) 10.2 g/dL (12.0-15.5) Hematocrit 32.1 % (36.0-47.0) 30.3 % (36.0-47.0) Mean Corpuscular Volume 95 fL (79-100) 94 fL (79-100) Mean Corpuscular Hemoglobin 31 pg (25-35) 32 pg (25-35) Mean Corpuscular Hemoglobin Concent 33 g/dL (31-37) 34 g/dL (31-37) Red Cell Distribution Width 17.2 % (11.5-14.5) 16.9 % (11.5-14.5) Platelet Count 217 x10^3/uL (140-400) 214 x10^3/uL (140-400) Neutrophils (%) (Auto) 77 % (31-73) 95 % (31-73) Lymphocytes (%) (Auto) 17 % (24-48) 3 % (24-48) Monocytes (%) (Auto) 5 % (0-9) 1 % (0-9) Eosinophils (%) (Auto) 1 % (0-3) 0 % (0-3) Basophils (%) (Auto) 1 % (0-3) 0 % (0-3) Neutrophils # (Auto) 2.5 x10^3uL (1.8-7.7) 4.1 x10^3uL (1.8-7.7) Lymphocytes # (Auto) 0.6 x10^3/uL (1.0-4.8) 0.1 x10^3/uL (1.0-4.8) Monocytes # (Auto) 0.2 x10^3/uL (0.0-1.1) 0.0 x10^3/uL (0.0-1.1) Eosinophils # (Auto) 0.0 x10^3/uL (0.0-0.7) 0.0 x10^3/uL (0.0-0.7) Basophils # (Auto) 0.0 x10^3/uL (0.0-0.2) 0.0 x10^3/uL (0.0-0.2) Sodium Level 136 mmol/L (136-145) Potassium Level 4.8 mmol/L (3.5-5.1) Chloride Level 101 mmol/L (98-107) Carbon Dioxide Level 30 mmol/L (21-32) Anion Gap 5 (6-14) Blood Urea Nitrogen 16 mg/dL (7-20) Creatinine 0.9 mg/dL (0.6-1.0) Estimated GFR (Cockcroft-Gault) 62.6 Glucose Level 86 mg/dL (70-99) Calcium Level 9.3 mg/dL (8.5-10.1) Total Bilirubin 0.9 mg/dL (0.2-1.0) Direct Bilirubin 0.3 mg/dL (0.0-0.2) Aspartate Amino Transf (AST/SGOT) 38 U/L (15-37) Alanine Aminotransferase (ALT/SGPT) 33 U/L (14-59) Alkaline Phosphatase 113 U/L (46-116) Troponin I Quantitative < 0.017 ng/mL (0.000-0.055) < 0.017 ng/mL (0.000-0.055) < 0.017 ng/mL (0.000-0.055) VU-Zmd-F-Type Natriuretic Peptide 2136 pg/mL (0-124) Total Protein 7.4 g/dL (6.4-8.2) Albumin 2.7 g/dL (3.4-5.0) Lipase 104 U/L (73-393) Segmented Neutrophils % 84 % (35-66) Band Neutrophils % 3 % (0-9) Lymphocytes % 11 % (24-48) Monocytes % 1 % (0-10) Eosinophils % 1 % (0-5) Platelet Estimate Adequate (ADEQUATE) Test 05/04/17 05:00 05/04/17 09:40 Sodium Level 138 mmol/L (136-145) Potassium Level 4.7 mmol/L (3.5-5.1) Chloride Level 100 mmol/L (98-107) Carbon Dioxide Level 26 mmol/L (21-32) Anion Gap 12 (6-14) Blood Urea Nitrogen 20 mg/dL (7-20) Creatinine 0.9 mg/dL (0.6-1.0) Estimated GFR (Cockcroft-Gault) 62.6 Glucose Level 172 mg/dL (70-99) Calcium Level 9.2 mg/dL (8.5-10.1) Triglycerides Level 57 mg/dL (0-150) Cholesterol Level 89 mg/dL (0-200) LDL Cholesterol, Calculated 44 mg/dL (0-100) VLDL Cholesterol, Calculated 11 mg/dL (0-40) Non-HDL Cholesterol Calculated 55 mg/dL (0-129) HDL Cholesterol 34 mg/dL (40-60) Cholesterol/HDL Ratio 2.6 D-Dimer (Juliana) 2.40 ug/mlFEU (0.00-0.50) Medications Current Medications Albuterol/ Ipratropium (Duoneb) 3 ml 1X ONCE NEB Last administered on 11:33; Start 05/03/17 at 11:15; Stop 05/03/17 at 11:16; Status DC Methylprednisolone Sodium Succinate (SOLU-Medrol 125MG VIAL) 125 mg 1X ONCE IV Last administered on 05/03/17 14:00; Start 05/03/17 at 14:00; Stop 05/03/17 at 14:01; Status DC Ondansetron HCl (Zofran) 4 mg PRN Q8HRS PRN IV NAUSEA/VOMITING; Start 05/03/17 at 14:00; Stop 05/04/17 at 13:59; Status Cancel Morphine Sulfate 2 mg PRN Q2HR PRN IV PAIN; Start 05/03/17 at 14:00; Stop 05/04 at 13:59; Status Cancel Ondansetron HCl (Zofran) 4 mg PRN Q8HRS PRN IV NAUSEA/VOMITING; Start 05/03/17 at 14:00; Stop 05/04/17 at 13:59; Status DC Morphine Sulfate 2 mg PRN Q2HR PRN IV PAIN; Start 05/03/17 at 14:15; Stop 05/04 at 14:14; Status DC Aspirin (Ecotrin) 81 mg DAILY PO Last administered on 05/05/17 09:00; Start at 09:00 Azathioprine (Imuran) 100 mg DAILY PO Last administered on 05/05/17 08:59; Start 05/04/17 at 09:00 Clopidogrel Bisulfate (Plavix) 75 mg DAILY PO Last administered on 05/05/17 09 :00; Start 05/04/17 at 09:00 Ergocalciferol (Vitamin D2) 50,000 unit Soliz PO Last administered on 05/04/17 08 :30; Start 05/04/17 at 09:00 Folic Acid (Folic Acid) 1 mg DAILY PO Last administered on 05/05/17 08:58; Start 05/04/17 at 09:00 Hydroxychloroquine Sulfate (Plaquenil) 200 mg BID PO Last administered on 09:00; Start 05/03/17 at 21:00 Metoprolol Succinate (Toprol Xl) 25 mg DAILY PO Last administered on 05/05/17 09:02; Start 05/04/17 at 09:00 Pantoprazole Sodium (Protonix) 40 mg DAILYAC PO Last administered on 05/05/17 09:00; Start 05/04/17 at 07:30 Tramadol HCl (Ultram) 2,500 mg PRN QID PRN PO PAIN; Start 05/03/17 at 18:30; Status Cancel Albuterol/ Ipratropium (Duoneb) 3 ml RTQID NEB Last administered on 05/05/17 07:43; Start 05/04/17 at 09:30 Prednisone (Prednisone) 40 mg DAILY PO ; Start 05/04/17 at 09:30; Stop 05/04/17 at 09:30; Status DC Budesonide (Pulmicort) 0.5 mg RTBID NEB Last administered on 05/05/17 07:43; Start 05/04/17 at 09:30 Ceftriaxone Sodium 1 gm/ Sodium Chloride 50 ml @ 100 mls/hr Q24H IV Last administered on 05/04/17 10:17; Start 05/04/17 at 10:00 Azithromycin (Zithromax) 500 mg 1X ONCE PO Last administered on 05/04/17 10: 17; Start 05/04/17 at 09:30; Stop 05/04/17 at 09:31; Status DC Azithromycin (Zithromax) 250 mg DAILY PO Last administered on 05/05/17 08:59; Start 05/05/17 at 09:00 Atorvastatin Calcium (Lipitor) 10 mg QHS PO Last administered on 05/04/17 21: 01; Start 05/04/17 at 21:00 Methylprednisolone Sodium Succinate (SOLU-Medrol 40MG VIAL) 40 mg Q8HRS IV Last administered on 05/05/17 05:42; Start 05/04/17 at 10:00 Albuterol Sulfate (Ventolin Neb Soln) 2.5 mg PRN Q4HRS PRN NEB SHORTNESS OF BREATH; Start 05/04/17 at 09:30 Acetaminophen (Tylenol) 650 mg PRN Q6HRS PRN PO MILD PAIN / TEMP; Start at 09:15 Magnesium Hydroxide (Milk Of Magnesia) 2,400 mg PRN DAILY PRN PO CONSTIPATION; Start 05/04/17 at 09:15 Iohexol (Omnipaque 300 Mg/ml) 75 ml 1X ONCE IV Last administered on 05/04/17t 12:01; Start 05/04/17 at 11:30; Stop 05/04/17 at 11:31; Status DC Info (Do NOT chart on this entry -- for MONITORING) 1 each PRN DAILY PRN MC SEE COMMENTS; Start 05/04/17 at 11:15; Stop 05/06/17 at 11:14 Active Scripts Active [Lisinopril] 2.5 MG Tablet 2.5 Mg PO DAILY Levaquin (Levofloxacin) 500 Mg Tablet 500 Mg PO DAILY06 Reported Alendronate Sodium 70 Mg Tablet 70 Mg PO WEEKLY Azathioprine 50 Mg Tablet 2 Tab PO DAILY Azathioprine 50 Mg Tablet 50 Mg PO Aspir 81 (Aspirin) 81 Mg Tablet.dr 1 Tab PO DAILY Metoprolol Succinate ( Xl ) (Metoprolol Succinate) 25 Mg Tab.er.24h 1 Tab PO DAILY Atorvastatin Calcium 80 Mg Tablet 1 Tab PO DAILY Clopidogrel (Clopidogrel Bisulfate) 75 Mg Tablet 75 Mg PO DAILY Vitamin D2 (Ergocalciferol (Vitamin D2)) 50,000 Unit Capsule 50,000 Unit PO Caltrate 600+D3+Min Chew Tab (Ca/D3/Mag/Zinc/Osvaldo/Marek/Mgbor) 1 Each Tab.chew 1 Each PO Prednisone 20 Mg Tablet 1 Tab PO DAILY Indication: steroid Next dose: 05/02/14 Taper as directed. Proair Hfa Inhaler (Albuterol Sulfate) 8.5 Gm Hfa.aer.ad 2 Puff IH PRN Q4-6HRS Indication: shortness of breath Next dose: 05/01/14 as needed Famotidine 40 Mg Tablet 40 Mg PO HS Indication: GERD Next dose: 05/01/14 bedtime Tramadol Hcl 50 Mg Tablet 50 Tab PO QIDPRN PRN Indication: pain NExt dose: 05/01/14 pm Hydroxychloroquine Sulfate 200 Mg Tablet 1 Tab PO BID Indication: arthritis Next dose: 05/01/14 pm Folic Acid 1 Mg Tablet 1 Tab PO DAILY INdication: supplement Next dose: 05/02/14 am Pantoprazole Sodium 40 Mg Tablet.dr 1 Tab PO DAILY Indication: stomach Next dose: 05/02/14 am Vitals/I & O Vital Sign - Last 24 Hours 05/04/17 05/04/17 05/04/17 05/04/17 11:00 11:09 15:06 15:06 Temp 98.8 98.5 98.8 98.5 Pulse 74 72 Resp 18 18 B/P (MAP) 128/65 (86) 125/68 (87) Pulse Ox 96 99 97 O2 Delivery Nasal Cannula Nasal Cannula Nasal Cannula Nasal Cannula O2 Flow Rate 3.0 2.0 3.0 2.0 05/04/17 05/04/17 05/04/17 05/04/17 19:00 19:27 19:27 20:10 Temp 97.9 97.9 Pulse 70 Resp 18 B/P (MAP) 97/58 (71) Pulse Ox 99 100 100 O2 Delivery Nasal Cannula Nasal Cannula Nasal Cannula Nasal Cannula O2 Flow Rate 3.0 2.0 2.0 2.0 05/04/17 05/05/17 05/05/17 05/05/17 23:00 03:00 07:00 07:43 Temp 98.3 98.6 98.7 98.3 98.6 98.7 Pulse 67 60 58 Resp 18 19 18 B/P (MAP) 91/52 (65) 116/84 (95) 122/67 (85) Pulse Ox 100 100 98 99 O2 Delivery Nasal Cannula Nasal Cannula Room Air Nasal Cannula O2 Flow Rate 3.0 3.0 2.0 05/05/17 05/05/17 08:00 09:02 Pulse 77 B/P (MAP) 122/67 O2 Delivery Nasal Cannula O2 Flow Rate 3.0 Intake and Output 05/05/17 05/05/17 05/06/17 15:00 23:00 07:00 Intake Total 300 ml Balance 300 ml ZOHREH DEMPSEY MD May 05, 2017 10:23
[2017-05-05 11:00] VITALS: BP 110/61
--- NOTE | 2017-05-05 13:00 | PDOC ---
PULMONARY PROGRESS NOTES Subjective pt feels better less soa Vitals Vital Signs Date Time Temp Pulse Resp B/P (MAP) Pulse Ox O2 Delivery O2 Flow Rate FiO2 05/05/17 11:39 Nasal Cannula 2.0 05/05/17 11:00 98.1 76 18 110/61 (77) 100 98.1 ROS: No Nausea, No Chest Pain, No Abdominal Pain, No Increase Cough General: Alert HEENT: Other Lungs: Crackles Cardiovascular: S1, S2, Other Abdomen: Soft, Non-tender Extremities: No Edema Skin: Warm, Dry Labs Laboratory Tests Test 05/03/17 19:35 05/04/17 02:30 05/04/17 03:30 05/04/17 05:00 Troponin I Quantitative < 0.017 ng/mL (0.000-0.055) < 0.017 ng/mL (0.000-0.055) White Blood Count 4.3 x10^3/uL (4.0-11.0) Red Blood Count 3.23 x10^6/uL (3.50-5.40) Hemoglobin 10.2 g/dL (12.0-15.5) Hematocrit 30.3 % (36.0-47.0) Mean Corpuscular Volume 94 fL (79-100) Mean Corpuscular Hemoglobin 32 pg (25-35) Mean Corpuscular Hemoglobin Concent 34 g/dL (31-37) Red Cell Distribution Width 16.9 % (11.5-14.5) Platelet Count 214 x10^3/uL (140-400) Neutrophils (%) (Auto) 95 % (31-73) Lymphocytes (%) (Auto) 3 % (24-48) Monocytes (%) (Auto) 1 % (0-9) Eosinophils (%) (Auto) 0 % (0-3) Basophils (%) (Auto) 0 % (0-3) Neutrophils # (Auto) 4.1 x10^3uL (1.8-7.7) Lymphocytes # (Auto) 0.1 x10^3/uL (1.0-4.8) Monocytes # (Auto) 0.0 x10^3/uL (0.0-1.1) Eosinophils # (Auto) 0.0 x10^3/uL (0.0-0.7) Basophils # (Auto) 0.0 x10^3/uL (0.0-0.2) Segmented Neutrophils % 84 % (35-66) Band Neutrophils % 3 % (0-9) Lymphocytes % 11 % (24-48) Monocytes % 1 % (0-10) Eosinophils % 1 % (0-5) Platelet Estimate Adequate (ADEQUATE) Sodium Level 138 mmol/L (136-145) Potassium Level 4.7 mmol/L (3.5-5.1) Chloride Level 100 mmol/L (98-107) Carbon Dioxide Level 26 mmol/L (21-32) Anion Gap 12 (6-14) Blood Urea Nitrogen 20 mg/dL (7-20) Creatinine 0.9 mg/dL (0.6-1.0) Estimated GFR (Cockcroft-Gault) 62.6 Glucose Level 172 mg/dL (70-99) Calcium Level 9.2 mg/dL (8.5-10.1) Triglycerides Level 57 mg/dL (0-150) Cholesterol Level 89 mg/dL (0-200) LDL Cholesterol, Calculated 44 mg/dL (0-100) VLDL Cholesterol, Calculated 11 mg/dL (0-40) Non-HDL Cholesterol Calculated 55 mg/dL (0-129) HDL Cholesterol 34 mg/dL (40-60) Cholesterol/HDL Ratio 2.6 Test 05/04/17 09:40 D-Dimer (Juliana) 2.40 ug/mlFEU (0.00-0.50) Medications Active Scripts Medications Dose Route/Sig Max Daily Dose Days Date Category Dose Instructions Alendronate Sodium 70 Mg Tablet 70 Mg PO WEEKLY 05/03/17 Reported Azathioprine 50 Mg Tablet 2 Tab PO DAILY 05/03/17 Reported Azathioprine 50 Mg Tablet 50 Mg PO 05/03/17 Reported Aspir 81 (Aspirin) 81 Mg Tablet.dr 1 Tab PO DAILY 05/03/17 Reported Metoprolol Succinate ( Xl ) (Metoprolol Succinate) 25 Mg Tab.er.24h 1 Tab PO DAILY 05/03/17 Reported Atorvastatin Calcium 80 Mg Tablet 1 Tab PO DAILY 05/03/17 Reported Clopidogrel (Clopidogrel Bisulfate) 75 Mg Tablet 75 Mg PO DAILY 05/03/17 Reported Vitamin D2 (Ergocalciferol (Vitamin D2)) 50,000 Unit Capsule 50,000 Unit PO 05/25/14 Reported Caltrate 600+D3+Min Chew Tab (Ca/D3/Mag/Zinc/Osvaldo/Marek/Mgbor) 1 Each Tab.chew 1 Each PO 05/25/14 Reported Prednisone 20 Mg Tablet 1 Tab PO DAILY 05/01/14 Reported Indication: steroid Next dose: 05/02/14 Taper as directed. Proair Hfa Inhaler (Albuterol Sulfate) 8.5 Gm Hfa.aer.ad 2 Puff IH PRN Q4-6HRS 05/01/14 Reported Indication: shortness of breath Next dose: 05/01/14 as needed [Lisinopril] 2.5 MG Tablet 2.5 Mg PO DAILY 05/01/14 Rx Levaquin (Levofloxacin) 500 Mg Tablet 500 Mg PO DAILY06 05/01/14 Rx Famotidine 40 Mg Tablet 40 Mg PO HS 04/29/14 Reported Indication: GERD Next dose: 05/01/14 bedtime Tramadol Hcl 50 Mg Tablet 50 Tab PO QIDPRN PRN 04/29/14 Reported Indication: pain NExt dose: 05/01/14 pm Hydroxychloroquine Sulfate 200 Mg Tablet 1 Tab PO BID 04/29/14 Reported Indication: arthritis Next dose: 05/01/14 pm Folic Acid 1 Mg Tablet 1 Tab PO DAILY 04/29/14 Reported INdication: supplement Next dose: 05/02/14 am Pantoprazole Sodium 40 Mg Tablet.dr 1 Tab PO DAILY 04/29/14 Reported Indication: stomach Next dose: 05/02/14 am Impression . 1. Acute respiratory failure secondary to acute exacerbation of chronic obstructive pulmonary disease, acute bronchitis. 2. Acute exacerbation of chronic obstructive pulmonary disease. 3. Acute bronchitis. 4. Elevated BNP? congestive heart failure. 5. Coronary artery disease. 6. Lupus, immunocompromised. 7. Tobacco habituation. 8. Gastroesophageal reflux disease. 9. Hypertension. No filling defects are seen within the major branches of either pulmonary artery. There is no CT evidence of pulmonary embolism. Moderate atherosclerotic calcification of the thoracic aorta is seen. Extensive coronary artery calcifications are noted. The heart is borderline enlarged. The thoracic aorta is ectatic and tortuous, unchanged. Moderate emphysematous changes are seen involving both lungs. Patchy areas of infiltrate/atelectasis are seen involving both lower lobes, unchanged. No pneumothorax or pleural effusion is seen. Impression: No CT evidence of pulmonary embolism. Plan . NO PE ON CT CONTINUE 02 NEBS D/C SMOKING ANITBX STEROIDS SISILLO,SABATO MD May 05, 2017 13:00
[2017-05-05 14:55] VITALS: BP 107/63
[2017-05-05] MEDS ORDERED: FLU VACC QS2017-18 (36MOS+)/PF 0.5 ML SYRINGE. VAX IM ONE (15:00)
[2017-05-05 19:00] VITALS: BP 95/51
[2017-05-05] MEDS: ATORVASTATIN CALCIUM 10 MG TABLET. PO SCH (20:15)
[2017-05-05 23:00] VITALS: BP 102/61
[2017-05-06 03:21] VITALS: BP 110/67
[2017-05-06 05:28] LABS: CALCIUM 8.8 mg/dL (8.5-10.1); CREATININE 0.8 mg/dL (0.6-1.0); GFR 71.8
[2017-05-06 07:00] VITALS: BP 119/62
[2017-05-06] MEDS: IPRATRPIUM/ALBUTEROL 0.5/2.5MG 3 ML NEBU. NEB SCH ×4 (07:29→20:24)
[2017-05-06] MEDS: BUDESONIDE 0.5 MG/2 ML NEBU. NEB SCH ×2 (07:29→20:24)
--- NOTE | 2017-05-06 09:02 | PDOC ---
PROGRESS NOTES Subjective Subjective feels well. cough less . breathing better. lab reviewed. Objective Objective Vital Signs Date Time Temp Pulse Resp B/P (MAP) Pulse Ox O2 Delivery O2 Flow Rate FiO2 05/06/17 07:30 100 Nasal Cannula 2.0 05/06/17 07:00 97.9 58 20 119/62 (81) 97.9 Physical Exam Abdomen: Soft Heart: Regular rate, Normal S1, Normal S2 Extremities: No edema General: Alert HEENT: Atraumatic Lungs: Clear to auscultation Neuro: Normal speech Psych/Mental Status: Mental status NL Skin: No rashes Assessment Assessment Problems1. Chronic obstructive pulmonary disease with acute exacerbation. improving 2. Acute bronchitis. 3. Coronary artery disease. 4. Rheumatoid arthritis with interstitial lung disease. 5. Hyperlipidemia. 6. Gastroesophageal reflux disease. 7. Anemia of chronic disease. 8. Moderate protein calorie malnutrition. Medical Problems: (1) COPD (chronic obstructive pulmonary disease) with acute bronchitis Status: Acute (2) Elevated brain natriuretic peptide (BNP) level Status: Acute Plan Plan of Care continue iv solumedrol continue iv rocephin and zithromax consider dismissal tomorrow Comment Review of Relevant I have reviewed the following items mata (where applicable) has been applied. Labs Laboratory Tests Test 05/04/17 09:40 05/06/17 05:00 D-Dimer (Juliana) 2.40 ug/mlFEU (0.00-0.50) Sodium Level 140 mmol/L (136-145) Potassium Level 5.0 mmol/L (3.5-5.1) Chloride Level 105 mmol/L (98-107) Carbon Dioxide Level 29 mmol/L (21-32) Anion Gap 6 (6-14) Blood Urea Nitrogen 20 mg/dL (7-20) Creatinine 0.8 mg/dL (0.6-1.0) Estimated GFR (Cockcroft-Gault) 71.8 Glucose Level 134 mg/dL (70-99) Calcium Level 8.8 mg/dL (8.5-10.1) Laboratory Tests Test 05/06/17 05:00 Sodium Level 140 mmol/L (136-145) Potassium Level 5.0 mmol/L (3.5-5.1) Chloride Level 105 mmol/L (98-107) Carbon Dioxide Level 29 mmol/L (21-32) Anion Gap 6 (6-14) Blood Urea Nitrogen 20 mg/dL (7-20) Creatinine 0.8 mg/dL (0.6-1.0) Estimated GFR (Cockcroft-Gault) 71.8 Glucose Level 134 mg/dL (70-99) Calcium Level 8.8 mg/dL (8.5-10.1) Medications Current Medications Albuterol/ Ipratropium (Duoneb) 3 ml 1X ONCE NEB Last administered on 11:33; Start 05/03/17 at 11:15; Stop 05/03/17 at 11:16; Status DC Methylprednisolone Sodium Succinate (SOLU-Medrol 125MG VIAL) 125 mg 1X ONCE IV Last administered on 05/03/17 14:00; Start 05/03/17 at 14:00; Stop 05/03/17 at 14:01; Status DC Ondansetron HCl (Zofran) 4 mg PRN Q8HRS PRN IV NAUSEA/VOMITING; Start 05/03/17 at 14:00; Stop 05/04/17 at 13:59; Status Cancel Morphine Sulfate 2 mg PRN Q2HR PRN IV PAIN; Start 05/03/17 at 14:00; Stop 05/04 at 13:59; Status Cancel Ondansetron HCl (Zofran) 4 mg PRN Q8HRS PRN IV NAUSEA/VOMITING; Start 05/03/17 at 14:00; Stop 05/04/17 at 13:59; Status DC Morphine Sulfate 2 mg PRN Q2HR PRN IV PAIN; Start 05/03/17 at 14:15; Stop 05/04 at 14:14; Status DC Aspirin (Ecotrin) 81 mg DAILY PO Last administered on 05/05/17 09:00; Start at 09:00 Azathioprine (Imuran) 100 mg DAILY PO Last administered on 05/05/17 08:59; Start 05/04/17 at 09:00 Clopidogrel Bisulfate (Plavix) 75 mg DAILY PO Last administered on 05/05/17 09 :00; Start 05/04/17 at 09:00 Ergocalciferol (Vitamin D2) 50,000 unit Soliz PO Last administered on 05/04/17 08 :30; Start 05/04/17 at 09:00 Folic Acid (Folic Acid) 1 mg DAILY PO Last administered on 05/05/17 08:58; Start 05/04/17 at 09:00 Hydroxychloroquine Sulfate (Plaquenil) 200 mg BID PO Last administered on 20:15; Start 05/03/17 at 21:00 Metoprolol Succinate (Toprol Xl) 25 mg DAILY PO Last administered on 05/05/17 09:02; Start 05/04/17 at 09:00 Pantoprazole Sodium (Protonix) 40 mg DAILYAC PO Last administered on 05/05/17 09:00; Start 05/04/17 at 07:30 Tramadol HCl (Ultram) 2,500 mg PRN QID PRN PO PAIN; Start 05/03/17 at 18:30; Status Cancel Albuterol/ Ipratropium (Duoneb) 3 ml RTQID NEB Last administered on 05/06/17 07:29; Start 05/04/17 at 09:30 Prednisone (Prednisone) 40 mg DAILY PO ; Start 05/04/17 at 09:30; Stop 05/04/17 at 09:30; Status DC Budesonide (Pulmicort) 0.5 mg RTBID NEB Last administered on 05/06/17 07:29; Start 05/04/17 at 09:30 Ceftriaxone Sodium 1 gm/ Sodium Chloride 50 ml @ 100 mls/hr Q24H IV Last administered on 05/05/17 10:55; Start 05/04/17 at 10:00 Azithromycin (Zithromax) 500 mg 1X ONCE PO Last administered on 05/04/17 10: 17; Start 05/04/17 at 09:30; Stop 05/04/17 at 09:31; Status DC Azithromycin (Zithromax) 250 mg DAILY PO Last administered on 05/05/17 08:59; Start 05/05/17 at 09:00 Atorvastatin Calcium (Lipitor) 10 mg QHS PO Last administered on 05/05/17 20: 15; Start 05/04/17 at 21:00 Methylprednisolone Sodium Succinate (SOLU-Medrol 40MG VIAL) 40 mg Q8HRS IV Last administered on 05/05/17 05:42; Start 05/04/17 at 10:00; Stop 05/05/17 at 10:24; Status DC Albuterol Sulfate (Ventolin Neb Soln) 2.5 mg PRN Q4HRS PRN NEB SHORTNESS OF BREATH; Start 05/04/17 at 09:30 Acetaminophen (Tylenol) 650 mg PRN Q6HRS PRN PO MILD PAIN / TEMP; Start at 09:15 Magnesium Hydroxide (Milk Of Magnesia) 2,400 mg PRN DAILY PRN PO CONSTIPATION; Start 05/04/17 at 09:15 Iohexol (Omnipaque 300 Mg/ml) 75 ml 1X ONCE IV Last administered on 05/04/17 12:01; Start 05/04/17 at 11:30; Stop 05/04/17 at 11:31; Status DC Info (Do NOT chart on this entry -- for MONITORING) 1 each PRN DAILY PRN MC SEE COMMENTS; Start 05/04/17 at 11:15; Stop 05/06/17 at 11:14 Methylprednisolone Sodium Succinate (SOLU-Medrol 40MG VIAL) 40 mg Q12HR IV Last administered on 05/05/17 20:16; Start 05/05/17 at 21:00 Influenza Virus Vaccine Quadrival (Fluarix Quad [id number] Syringe) 0.5 ml ONCE ONCE VAX IM Last administered on 05/05/17 15:14; Start 05/05/17 at 15:00; Stop 05/05/17 at 15:01; Status DC Active Scripts Active [Lisinopril] 2.5 MG Tablet 2.5 Mg PO DAILY Levaquin (Levofloxacin) 500 Mg Tablet 500 Mg PO DAILY06 Reported Alendronate Sodium 70 Mg Tablet 70 Mg PO WEEKLY Azathioprine 50 Mg Tablet 2 Tab PO DAILY Azathioprine 50 Mg Tablet 50 Mg PO Aspir 81 (Aspirin) 81 Mg Tablet.dr 1 Tab PO DAILY Metoprolol Succinate ( Xl ) (Metoprolol Succinate) 25 Mg Tab.er.24h 1 Tab PO DAILY Atorvastatin Calcium 80 Mg Tablet 1 Tab PO DAILY Clopidogrel (Clopidogrel Bisulfate) 75 Mg Tablet 75 Mg PO DAILY Vitamin D2 (Ergocalciferol (Vitamin D2)) 50,000 Unit Capsule 50,000 Unit PO Caltrate 600+D3+Min Chew Tab (Ca/D3/Mag/Zinc/Osvaldo/Marek/Mgbor) 1 Each Tab.chew 1 Each PO Prednisone 20 Mg Tablet 1 Tab PO DAILY Indication: steroid Next dose: 05/02/14 Taper as directed. Proair Hfa Inhaler (Albuterol Sulfate) 8.5 Gm Hfa.aer.ad 2 Puff IH PRN Q4-6HRS Indication: shortness of breath Next dose: 05/01/14 as needed Famotidine 40 Mg Tablet 40 Mg PO HS Indication: GERD Next dose: 05/01/14 bedtime Tramadol Hcl 50 Mg Tablet 50 Tab PO QIDPRN PRN Indication: pain NExt dose: 05/01/14 pm Hydroxychloroquine Sulfate 200 Mg Tablet 1 Tab PO BID Indication: arthritis Next dose: 05/01/14 pm Folic Acid 1 Mg Tablet 1 Tab PO DAILY INdication: supplement Next dose: 05/02/14 am Pantoprazole Sodium 40 Mg Tablet. 1 Tab PO DAILY Indication: stomach Next dose: 05/02/14 am Vitals/I & O Vital Sign - Last 24 Hours 05/05/17 05/05/17 05/05/17 05/05/17 09:02 11:00 11:39 14:55 Temp 98.1 97.9 98.1 97.9 Pulse 77 76 69 Resp 18 18 B/P (MAP) 122/67 110/61 (77) 107/63 (78) Pulse Ox 100 98 O2 Delivery Nasal Cannula Nasal Cannula Nasal Cannula O2 Flow Rate 3.0 2.0 3.0 05/05/17 05/05/17 05/05/17 05/05/17 15:43 19:00 19:27 20:05 Temp 98.2 98.2 Pulse 75 Resp 20 B/P (MAP) 95/51 (66) Pulse Ox 98 98 O2 Delivery Nasal Cannula Nasal Cannula Nasal Cannula Nasal Cannula O2 Flow Rate 2.0 2.0 2.0 05/05/17 05/05/17 05/06/17 05/06/17 20:06 23:00 03:21 07:00 Temp 97.7 97.7 97.9 97.7 97.7 97.9 Pulse 73 67 58 Resp 20 20 20 B/P (MAP) 102/61 (75) 110/67 (81) 119/62 (81) Pulse Ox 98 99 99 99 O2 Delivery Nasal Cannula Nasal Cannula Nasal Cannula Nasal Cannula O2 Flow Rate 2.0 05/06/17 07:30 Pulse Ox 100 O2 Delivery Nasal Cannula O2 Flow Rate 2.0 ZOHREH DEMPSEY MD May 06, 2017 09:02
[2017-05-06] MEDS: PANTOPRAZOLE 40 MG TABLET.DR. PO SCH (09:21)
[2017-05-06] MEDS: methylPREDNISolone SOD SUCC PF 40 MG/ML VIAL. IV SCH ×2 (09:23→20:30)
[2017-05-06] MEDS: FOLIC ACID 1 MG TABLET. PO SCH (09:24)
[2017-05-06] MEDS: ASPIRIN ENTERIC COATED 81 MG TABLET.DR. PO SCH (09:24)
[2017-05-06] MEDS: HYDROXYCHLOROQUINE 200 MG TABLET PO SCH ×2 (09:25→20:30)
[2017-05-06] MEDS: azaTHIOprine 50 MG TABLET PO SCH (09:25)
[2017-05-06] MEDS: CLOPIDOGREL BISULFATE 75 MG TABLET PO SCH (09:26)
[2017-05-06] MEDS: METOPROLOL SUCC 24HR ER 25 MG TAB.ER.24H. PO SCH (09:27)
[2017-05-06] MEDS: AZITHROMYCIN 250 MG TABLET. PO SCH (09:27)
[2017-05-06 11:00] VITALS: BP 113/59
[2017-05-06 15:00] VITALS: BP 103/59
--- NOTE | 2017-05-06 17:09 | PDOC ---
PULMONARY PROGRESS NOTES Subjective pt feels better less soa Vitals Vital Signs Date Time Temp Pulse Resp B/P (MAP) Pulse Ox O2 Delivery O2 Flow Rate FiO2 05/06/17 15:57 Nasal Cannula 2.0 05/06/17 15:00 97.9 68 18 103/59 (74) 99 97.9 ROS: No Nausea, No Chest Pain, No Abdominal Pain, No Increase Cough General: Alert HEENT: Other Lungs: Crackles Cardiovascular: S1, S2, Other Abdomen: Soft, Non-tender Extremities: No Edema Skin: Warm, Dry Labs Laboratory Tests Test 05/06/17 05:00 Sodium Level 140 mmol/L (136-145) Potassium Level 5.0 mmol/L (3.5-5.1) Chloride Level 105 mmol/L (98-107) Carbon Dioxide Level 29 mmol/L (21-32) Anion Gap 6 (6-14) Blood Urea Nitrogen 20 mg/dL (7-20) Creatinine 0.8 mg/dL (0.6-1.0) Estimated GFR (Cockcroft-Gault) 71.8 Glucose Level 134 mg/dL (70-99) Calcium Level 8.8 mg/dL (8.5-10.1) Laboratory Tests Test 05/06/17 05:00 Sodium Level 140 mmol/L (136-145) Potassium Level 5.0 mmol/L (3.5-5.1) Chloride Level 105 mmol/L (98-107) Carbon Dioxide Level 29 mmol/L (21-32) Anion Gap 6 (6-14) Blood Urea Nitrogen 20 mg/dL (7-20) Creatinine 0.8 mg/dL (0.6-1.0) Estimated GFR (Cockcroft-Gault) 71.8 Glucose Level 134 mg/dL (70-99) Calcium Level 8.8 mg/dL (8.5-10.1) Medications Active Scripts Medications Dose Route/Sig Max Daily Dose Days Date Category Dose Instructions Alendronate Sodium 70 Mg Tablet 70 Mg PO WEEKLY 05/03/17 Reported Azathioprine 50 Mg Tablet 2 Tab PO DAILY 05/03/17 Reported Azathioprine 50 Mg Tablet 50 Mg PO 05/03/17 Reported Aspir 81 (Aspirin) 81 Mg Tablet.dr 1 Tab PO DAILY 05/03/17 Reported Metoprolol Succinate ( Xl ) (Metoprolol Succinate) 25 Mg Tab.er.24h 1 Tab PO DAILY 05/03/17 Reported Atorvastatin Calcium 80 Mg Tablet 1 Tab PO DAILY 05/03/17 Reported Clopidogrel (Clopidogrel Bisulfate) 75 Mg Tablet 75 Mg PO DAILY 05/03/17 Reported Vitamin D2 (Ergocalciferol (Vitamin D2)) 50,000 Unit Capsule 50,000 Unit PO 05/25/14 Reported Caltrate 600+D3+Min Chew Tab (Ca/D3/Mag/Zinc/Osvaldo/Marek/Mgbor) 1 Each Tab.chew 1 Each PO 05/25/14 Reported Prednisone 20 Mg Tablet 1 Tab PO DAILY 05/01/14 Reported Indication: steroid Next dose: 05/02/14 Taper as directed. Proair Hfa Inhaler (Albuterol Sulfate) 8.5 Gm Hfa.aer.ad 2 Puff IH PRN Q4-6HRS 05/01/14 Reported Indication: shortness of breath Next dose: 05/01/14 as needed [Lisinopril] 2.5 MG Tablet 2.5 Mg PO DAILY 05/01/14 Rx Levaquin (Levofloxacin) 500 Mg Tablet 500 Mg PO DAILY06 05/01/14 Rx Famotidine 40 Mg Tablet 40 Mg PO HS 04/29/14 Reported Indication: GERD Next dose: 05/01/14 bedtime Tramadol Hcl 50 Mg Tablet 50 Tab PO QIDPRN PRN 04/29/14 Reported Indication: pain NExt dose: 05/01/14 pm Hydroxychloroquine Sulfate 200 Mg Tablet 1 Tab PO BID 04/29/14 Reported Indication: arthritis Next dose: 05/01/14 pm Folic Acid 1 Mg Tablet 1 Tab PO DAILY 04/29/14 Reported INdication: supplement Next dose: 05/02/14 am Pantoprazole Sodium 40 Mg Tablet.dr 1 Tab PO DAILY 04/29/14 Reported Indication: stomach Next dose: 05/02/14 am Impression . 1. Acute respiratory failure secondary to acute exacerbation of chronic obstructive pulmonary disease, acute bronchitis. 2. Acute exacerbation of chronic obstructive pulmonary disease. 3. Acute bronchitis. 4. Elevated BNP? congestive heart failure. 5. Coronary artery disease. 6. Lupus, immunocompromised. 7. Tobacco habituation. 8. Gastroesophageal reflux disease. 9. Hypertension. No filling defects are seen within the major branches of either pulmonary artery. There is no CT evidence of pulmonary embolism. Moderate atherosclerotic calcification of the thoracic aorta is seen. Extensive coronary artery calcifications are noted. The heart is borderline enlarged. The thoracic aorta is ectatic and tortuous, unchanged. Moderate emphysematous changes are seen involving both lungs. Patchy areas of infiltrate/atelectasis are seen involving both lower lobes, unchanged. No pneumothorax or pleural effusion is seen. Impression: No CT evidence of pulmonary embolism. Plan . AGREE WITH D/C IN AM FOLLOW UP IN OFFICE NO PE ON CT CONTINUE 02 NEBS D/C SMOKING ANITBX STEROIDS KATIE PIERRE MD May 06, 2017 17:09
[2017-05-06 19:00] VITALS: BP 98/53
[2017-05-06] MEDS: ATORVASTATIN CALCIUM 10 MG TABLET. PO SCH (20:30)
[2017-05-06 23:00] VITALS: BP 98/50
[2017-05-07 03:00] VITALS: BP 103/52
[2017-05-07 07:00] VITALS: BP 103/58
[2017-05-07] MEDS: IPRATRPIUM/ALBUTEROL 0.5/2.5MG 3 ML NEBU. NEB SCH (07:21)
[2017-05-07] MEDS: BUDESONIDE 0.5 MG/2 ML NEBU. NEB SCH (07:21)
[2017-05-07] MEDS: methylPREDNISolone SOD SUCC PF 40 MG/ML VIAL. IV SCH (08:49)
[2017-05-07 08:50] VITALS: BP 103/52
[2017-05-07] MEDS: HYDROXYCHLOROQUINE 200 MG TABLET PO SCH (08:50)
[2017-05-07] MEDS: CLOPIDOGREL BISULFATE 75 MG TABLET PO SCH (08:50)
[2017-05-07] MEDS: METOPROLOL SUCC 24HR ER 25 MG TAB.ER.24H. PO SCH (08:50)
[2017-05-07] MEDS: ASPIRIN ENTERIC COATED 81 MG TABLET.DR. PO SCH (08:50)
[2017-05-07] MEDS: AZITHROMYCIN 250 MG TABLET. PO SCH (08:50)
[2017-05-07] MEDS: PANTOPRAZOLE 40 MG TABLET.DR. PO SCH (08:50)
[2017-05-07] MEDS: FOLIC ACID 1 MG TABLET. PO SCH (08:50)
[2017-05-07] MEDS: azaTHIOprine 50 MG TABLET PO SCH (08:51)
--- NOTE | 2017-05-07 09:19 | PDOC ---
PROGRESS NOTES Subjective Subjective feels better. breathing okay. Objective Objective Vital Signs Date Time Temp Pulse Resp B/P (MAP) Pulse Ox O2 Delivery O2 Flow Rate FiO2 05/07/17 08:50 65 103/52 05/07/17 08:00 Nasal Cannula 3.0 05/07/17 07:21 93 05/07/17 07:00 98.6 20 98.6 Physical Exam Abdomen: Soft Heart: Regular rate, Normal S1, Normal S2 Extremities: No edema General: Alert HEENT: Atraumatic Lungs: Clear to auscultation (decreased bilaterl breath sounds) Neuro: Normal speech Psych/Mental Status: Mental status NL Skin: No rashes Assessment Assessment Problems1. Chronic obstructive pulmonary disease with acute exacerbation. improved 2. Acute bronchitis. 3. Coronary artery disease. 4. Rheumatoid arthritis with interstitial lung disease. 5. Hyperlipidemia. 6. Gastroesophageal reflux disease. 7. Anemia of chronic disease. 8. Moderate protein calorie malnutrition. Medical Problems: (1) COPD (chronic obstructive pulmonary disease) with acute bronchitis Status: Acute (2) Elevated brain natriuretic peptide (BNP) level Status: Acute Plan Plan of Care dismiss today nebulizer for home use change to prednisone taper Comment Review of Relevant I have reviewed the following items mata (where applicable) has been applied. Labs Laboratory Tests Test 05/06/17 05:00 Sodium Level 140 mmol/L (136-145) Potassium Level 5.0 mmol/L (3.5-5.1) Chloride Level 105 mmol/L (98-107) Carbon Dioxide Level 29 mmol/L (21-32) Anion Gap 6 (6-14) Blood Urea Nitrogen 20 mg/dL (7-20) Creatinine 0.8 mg/dL (0.6-1.0) Estimated GFR (Cockcroft-Gault) 71.8 Glucose Level 134 mg/dL (70-99) Calcium Level 8.8 mg/dL (8.5-10.1) Medications Current Medications Albuterol/ Ipratropium (Duoneb) 3 ml 1X ONCE NEB Last administered on 11:33; Start 05/03/17 at 11:15; Stop 05/03/17 at 11:16; Status DC Methylprednisolone Sodium Succinate (SOLU-Medrol 125MG VIAL) 125 mg 1X ONCE IV Last administered on 05/03/17 14:00; Start 05/03/17 at 14:00; Stop 05/03/17 at 14:01; Status DC Ondansetron HCl (Zofran) 4 mg PRN Q8HRS PRN IV NAUSEA/VOMITING; Start 05/03/17 at 14:00; Stop 05/04/17 at 13:59; Status Cancel Morphine Sulfate 2 mg PRN Q2HR PRN IV PAIN; Start 05/03/17 at 14:00; Stop 05/04 at 13:59; Status Cancel Ondansetron HCl (Zofran) 4 mg PRN Q8HRS PRN IV NAUSEA/VOMITING; Start 05/03/17 at 14:00; Stop 05/04/17 at 13:59; Status DC Morphine Sulfate 2 mg PRN Q2HR PRN IV PAIN; Start 05/03/17 at 14:15; Stop 05/04 at 14:14; Status DC Aspirin (Ecotrin) 81 mg DAILY PO Last administered on 05/07/17 08:50; Start at 09:00 Azathioprine (Imuran) 100 mg DAILY PO Last administered on 05/07/17 08:51; Start 05/04/17 at 09:00 Clopidogrel Bisulfate (Plavix) 75 mg DAILY PO Last administered on 05/07/17 08 :50; Start 05/04/17 at 09:00 Ergocalciferol (Vitamin D2) 50,000 unit Soliz PO Last administered on 05/04/17 08 :30; Start 05/04/17 at 09:00 Folic Acid (Folic Acid) 1 mg DAILY PO Last administered on 05/07/17 08:50; Start 05/04/17 at 09:00 Hydroxychloroquine Sulfate (Plaquenil) 200 mg BID PO Last administered on 08:50; Start 05/03/17 at 21:00 Metoprolol Succinate (Toprol Xl) 25 mg DAILY PO Last administered on 05/07/17 08:50; Start 05/04/17 at 09:00 Pantoprazole Sodium (Protonix) 40 mg DAILYAC PO Last administered on 05/07/17 08:50; Start 05/04/17 at 07:30 Tramadol HCl (Ultram) 2,500 mg PRN QID PRN PO PAIN; Start 05/03/17 at 18:30; Status Cancel Albuterol/ Ipratropium (Duoneb) 3 ml RTQID NEB Last administered on 05/07/17 07:21; Start 05/04/17 at 09:30 Prednisone (Prednisone) 40 mg DAILY PO ; Start 05/04/17 at 09:30; Stop 05/04/17 at 09:30; Status DC Budesonide (Pulmicort) 0.5 mg RTBID NEB Last administered on 05/07/17 07:21; Start 05/04/17 at 09:30 Ceftriaxone Sodium 1 gm/ Sodium Chloride 50 ml @ 100 mls/hr Q24H IV Last administered on 05/06/17 09:28; Start 05/04/17 at 10:00 Azithromycin (Zithromax) 500 mg 1X ONCE PO Last administered on 05/04/17 10: 17; Start 05/04/17 at 09:30; Stop 05/04/17 at 09:31; Status DC Azithromycin (Zithromax) 250 mg DAILY PO Last administered on 05/07/17 08:50; Start 05/05/17 at 09:00 Atorvastatin Calcium (Lipitor) 10 mg QHS PO Last administered on 05/06/17 20: 30; Start 05/04/17 at 21:00 Methylprednisolone Sodium Succinate (SOLU-Medrol 40MG VIAL) 40 mg Q8HRS IV Last administered on 05/05/17 05:42; Start 05/04/17 at 10:00; Stop 05/05/17 at 10:24; Status DC Albuterol Sulfate (Ventolin Neb Soln) 2.5 mg PRN Q4HRS PRN NEB SHORTNESS OF BREATH; Start 05/04/17 at 09:30 Acetaminophen (Tylenol) 650 mg PRN Q6HRS PRN PO MILD PAIN / TEMP; Start at 09:15 Magnesium Hydroxide (Milk Of Magnesia) 2,400 mg PRN DAILY PRN PO CONSTIPATION; Start 05/04/17 at 09:15 Iohexol (Omnipaque 300 Mg/ml) 75 ml 1X ONCE IV Last administered on 05/04/17 12:01; Start 05/04/17 at 11:30; Stop 05/04/17 at 11:31; Status DC Info (Do NOT chart on this entry -- for MONITORING) 1 each PRN DAILY PRN MC SEE COMMENTS; Start 05/04/17 at 11:15; Stop 05/06/17 at 11:14; Status DC Methylprednisolone Sodium Succinate (SOLU-Medrol 40MG VIAL) 40 mg Q12HR IV Last administered on 05/07/17 08:49; Start 05/05/17 at 21:00 Influenza Virus Vaccine Quadrival (Fluarix Quad [id number] Syringe) 0.5 ml ONCE ONCE VAX IM Last administered on 05/05/17 15:14; Start 05/05/17 at 15:00; Stop 05/05/17 at 15:01; Status DC Active Scripts Active [Lisinopril] 2.5 MG Tablet 2.5 Mg PO DAILY Levaquin (Levofloxacin) 500 Mg Tablet 500 Mg PO DAILY06 Reported Alendronate Sodium 70 Mg Tablet 70 Mg PO WEEKLY Azathioprine 50 Mg Tablet 2 Tab PO DAILY Azathioprine 50 Mg Tablet 50 Mg PO Aspir 81 (Aspirin) 81 Mg Tablet. 1 Tab PO DAILY Metoprolol Succinate ( Xl ) (Metoprolol Succinate) 25 Mg Tab.er.24h 1 Tab PO DAILY Atorvastatin Calcium 80 Mg Tablet 1 Tab PO DAILY Clopidogrel (Clopidogrel Bisulfate) 75 Mg Tablet 75 Mg PO DAILY Vitamin D2 (Ergocalciferol (Vitamin D2)) 50,000 Unit Capsule 50,000 Unit PO Caltrate 600+D3+Min Chew Tab (Ca/D3/Mag/Zinc/Osvaldo/Marek/Mgbor) 1 Each Tab.chew 1 Each PO Prednisone 20 Mg Tablet 1 Tab PO DAILY Indication: steroid Next dose: 05/02/14 Taper as directed. Proair Hfa Inhaler (Albuterol Sulfate) 8.5 Gm Hfa.aer.ad 2 Puff IH PRN Q4-6HRS Indication: shortness of breath Next dose: 05/01/14 as needed Famotidine 40 Mg Tablet 40 Mg PO HS Indication: GERD Next dose: 05/01/14 bedtime Tramadol Hcl 50 Mg Tablet 50 Tab PO QIDPRN PRN Indication: pain NExt dose: 05/01/14 pm Hydroxychloroquine Sulfate 200 Mg Tablet 1 Tab PO BID Indication: arthritis Next dose: 05/01/14 pm Folic Acid 1 Mg Tablet 1 Tab PO DAILY INdication: supplement Next dose: 05/02/14 am Pantoprazole Sodium 40 Mg Tablet.dr 1 Tab PO DAILY Indication: stomach Next dose: 05/02/14 am Vitals/I & O Vital Sign - Last 24 Hours 05/06/17 05/06/17 05/06/17 05/06/17 09:27 11:00 11:00 15:00 Temp 97.7 97.9 97.7 97.9 Pulse 72 63 68 Resp 18 18 B/P (MAP) 113/59 (77) 103/59 (74) Pulse Ox 98 99 O2 Delivery Nasal Cannula Nasal Cannula Nasal Cannula O2 Flow Rate 2.0 05/06/17 05/06/17 05/06/17 05/06/17 15:57 19:00 20:00 20:26 Temp 98.1 98.1 Pulse 64 Resp 18 B/P (MAP) 98/53 (68) Pulse Ox 99 100 O2 Delivery Nasal Cannula Nasal Cannula Nasal Cannula Nasal Cannula O2 Flow Rate 2.0 3.0 3.0 2.0 05/06/17 05/06/17 05/07/17 05/07/17 20:27 23:00 03:00 07:00 Temp 97.2 97.9 98.6 97.2 97.9 98.6 Pulse 68 65 59 Resp 20 18 20 B/P (MAP) 98/50 (66) 103/52 (69) 103/58 (73) Pulse Ox 100 98 96 92 O2 Delivery Nasal Cannula Nasal Cannula Nasal Cannula Room Air O2 Flow Rate 2.0 3.0 3.0 05/07/17 05/07/17 05/07/17 07:21 08:00 08:50 Pulse 65 B/P (MAP) 103/52 Pulse Ox 93 O2 Delivery Room Air Nasal Cannula O2 Flow Rate 3.0 ZOHREH DEMPSEY MD May 07, 2017 09:19
--- NOTE | 2017-05-07 09:27 | DISCH ---
DISCHARGE INSTRUCTIONS Condition on Discharge Condition on Discharge: Stable Activity After Discharge Activity Instructions for Disc: Resume previous activity Diet after Discharge Diet after Discharge: Cardiac, Regular Contacting the DRHemanth after DC Call your doctor for: If your condition worsens Follow-Up Follow up with: dr. dempsey in 1 week ZOHREH DEMPSEY MD May 07, 2017 09:27
[2017-05-07] MEDS ORDERED: IPRA3AMP NEB (09:32)
[2017-05-07] MEDS ORDERED: CEPH500T PO (09:32)
[2017-05-07] MEDS ORDERED: AZIT250T6 PO (09:32)
[2017-05-07] MEDS ORDERED: BUDE0.5A NEB (09:32)
--- NOTE | 2017-05-07 09:36 | PDOC ---
Provider Note Provider Note discharge summary dictated # [id number] ZOHREH DEMPSEY MD May 07, 2017 09:36
--- NOTE | 2017-05-07 10:09 | PDOC ---
PULMONARY PROGRESS NOTES Subjective pt feels better less soa Vitals Vital Signs Date Time Temp Pulse Resp B/P (MAP) Pulse Ox O2 Delivery O2 Flow Rate FiO2 05/07/17 08:50 65 103/52 05/07/17 08:00 Nasal Cannula 3.0 05/07/17 07:21 93 05/07/17 07:00 98.6 20 98.6 ROS: No Nausea, No Chest Pain, No Abdominal Pain, No Increase Cough General: Alert HEENT: Other Lungs: Crackles Cardiovascular: S1, S2, Other Abdomen: Soft, Non-tender Extremities: No Edema Skin: Warm, Dry Labs Laboratory Tests Test 05/06/17 05:00 Sodium Level 140 mmol/L (136-145) Potassium Level 5.0 mmol/L (3.5-5.1) Chloride Level 105 mmol/L (98-107) Carbon Dioxide Level 29 mmol/L (21-32) Anion Gap 6 (6-14) Blood Urea Nitrogen 20 mg/dL (7-20) Creatinine 0.8 mg/dL (0.6-1.0) Estimated GFR (Cockcroft-Gault) 71.8 Glucose Level 134 mg/dL (70-99) Calcium Level 8.8 mg/dL (8.5-10.1) Medications Active Scripts Medications Dose Route/Sig Max Daily Dose Days Date Category Dose Instructions Alendronate Sodium 70 Mg Tablet 70 Mg PO WEEKLY 05/03/17 Reported Azathioprine 50 Mg Tablet 2 Tab PO DAILY 05/03/17 Reported Azathioprine 50 Mg Tablet 50 Mg PO 05/03/17 Reported Aspir 81 (Aspirin) 81 Mg Tablet.dr 1 Tab PO DAILY 05/03/17 Reported Metoprolol Succinate ( Xl ) (Metoprolol Succinate) 25 Mg Tab.er.24h 1 Tab PO DAILY 05/03/17 Reported Atorvastatin Calcium 80 Mg Tablet 1 Tab PO DAILY 05/03/17 Reported Clopidogrel (Clopidogrel Bisulfate) 75 Mg Tablet 75 Mg PO DAILY 05/03/17 Reported Vitamin D2 (Ergocalciferol (Vitamin D2)) 50,000 Unit Capsule 50,000 Unit PO 05/25/14 Reported Caltrate 600+D3+Min Chew Tab (Ca/D3/Mag/Zinc/Osvaldo/Marek/Mgbor) 1 Each Tab.chew 1 Each PO 05/25/14 Reported Prednisone 20 Mg Tablet 1 Tab PO DAILY 05/01/14 Reported Indication: steroid Next dose: 05/02/14 Taper as directed. Proair Hfa Inhaler (Albuterol Sulfate) 8.5 Gm Hfa.aer.ad 2 Puff IH PRN Q4-6HRS 05/01/14 Reported Indication: shortness of breath Next dose: 05/01/14 as needed [Lisinopril] 2.5 MG Tablet 2.5 Mg PO DAILY 05/01/14 Rx Levaquin (Levofloxacin) 500 Mg Tablet 500 Mg PO DAILY06 05/01/14 Rx Famotidine 40 Mg Tablet 40 Mg PO HS 04/29/14 Reported Indication: GERD Next dose: 05/01/14 bedtime Tramadol Hcl 50 Mg Tablet 50 Tab PO QIDPRN PRN 04/29/14 Reported Indication: pain NExt dose: 05/01/14 pm Hydroxychloroquine Sulfate 200 Mg Tablet 1 Tab PO BID 04/29/14 Reported Indication: arthritis Next dose: 05/01/14 pm Folic Acid 1 Mg Tablet 1 Tab PO DAILY 04/29/14 Reported INdication: supplement Next dose: 05/02/14 am Pantoprazole Sodium 40 Mg Tablet.dr 1 Tab PO DAILY 04/29/14 Reported Indication: stomach Next dose: 05/02/14 am Impression . 1. Acute respiratory failure secondary to acute exacerbation of chronic obstructive pulmonary disease, acute bronchitis. 2. Acute exacerbation of chronic obstructive pulmonary disease. 3. Acute bronchitis. 4. Elevated BNP? congestive heart failure. 5. Coronary artery disease. 6. Lupus, immunocompromised. 7. Tobacco habituation. 8. Gastroesophageal reflux disease. 9. Hypertension. No filling defects are seen within the major branches of either pulmonary artery. There is no CT evidence of pulmonary embolism. Moderate atherosclerotic calcification of the thoracic aorta is seen. Extensive coronary artery calcifications are noted. The heart is borderline enlarged. The thoracic aorta is ectatic and tortuous, unchanged. Moderate emphysematous changes are seen involving both lungs. Patchy areas of infiltrate/atelectasis are seen involving both lower lobes, unchanged. No pneumothorax or pleural effusion is seen. Impression: No CT evidence of pulmonary embolism. Plan . AGREE WITH D/C IN AM FOLLOW UP IN OFFICE NO PE ON CT CONTINUE 02 NEBS D/C SMOKING ANITBX STEROIDS KATIE PIERRE MD May 07, 2017 10:09
[2017-05-07] MEDS ORDERED: CEPHALEXIN 250 MG CAPSULE. PO SCH (13:00)
--- NOTE | 2017-05-07 18:58 | DS ---
DATE OF DISCHARGE: 05/07/2017 CONSULTANTS: Dr. Neal. FINAL DIAGNOSES: 1. Acute exacerbation of chronic obstructive pulmonary disease secondary to acute bronchitis. 2. Acute bronchitis. 3. Coronary artery disease. 4. Rheumatoid arthritis with interstitial lung disease. 5. Hyperlipidemia. 6. Gastroesophageal reflux disease. 7. Anemia of chronic disease. 8. Moderate protein calorie malnutrition. HOSPITAL COURSE: The patient is a 67-year-old white female with history of COPD and coronary artery disease as well as rheumatoid arthritis and interstitial lung disease, possibly secondary to rheumatoid arthritis, admitted to [facility] through the Emergency Room on 05/03/2017 with a 3-day history of shortness of breath and also coughing up some clear sputum. She uses oxygen 2 liters nasal cannula at bedtime at home. She also had some chest discomfort which was a dull pain when she took a deep breath. In the Emergency Room, the chest x-ray showed no acute abnormality. EKG showed normal sinus rhythm with no acute abnormality and she was started on IV Solu-Medrol, nebulizer treatments, IV Rocephin and Zithromax. In addition, a CAT scan and chest angiogram was negative for pulmonary embolus and she was seen in consultation by Dr. Neal for pulmonary consultation. The patient's IV Solu-Medrol was eventually discontinued and she will be started on a prednisone taper also. She did improve. She was switched on Zithromax 250 mg every day for 2 days, Keflex 500 mg q.i.d. for 4 days. A nebulizer will be given for her and she will be on budesonide nebulizer treatment 0.5 mg b.i.d. and albuterol and Atrovent nebulizer treatments q.i.d. and Zithromax will be 250 mg every day for 2 days, Keflex 500 mg q.i.d. for 4 days and she will continue with her Fosamax 70 mg every week, aspirin 81 mg every day, atorvastatin 80 mg every day and Imuran 100 mg every day, Plavix 75 mg every day, vitamin D 50,000 units every Friday, folic acid 1 mg every day, Plaquenil 200 mg b.i.d., metoprolol succinate 25 mg every day and Protonix 40 mg every day. She will make an appointment to see Dr. Desir in the office in 1 week. She will be dismissed on prednisone 40 mg for 2 days, 30 mg for 2 days, 20 mg for 2 days, 10 mg for 2 days and then, she will stop the prednisone. She was encouraged also to stop smoking cigarettes. Actually, she said she did quit about a year ago. ZOHREH DESIR MD DR: PALMER/jeanine JOB#: [id number] / [id number]
[2017-05-08] MEDS ORDERED: predniSONE 10 MG TABLET PO SCH (09:00)
== END 2017-05-07 10:51 | disposition home or self-care (01) | DRG 189 ==
LOC: ER 10:38 → 5 NORTH 14:07
PROVIDERS: ADMIT Internal Medicine; ATTEND Internal Medicine
DX: J96.00 Acute respiratory failure, unspecified whether with hypoxia or hypercapnia (principal); E44.0 Moderate protein-calorie malnutrition; J84.9 Interstitial pulmonary disease, unspecified; J44.0 Chronic obstructive pulmonary disease with (acute) lower respiratory infection; J98.11 Atelectasis; J44.1 Chronic obstructive pulmonary disease with (acute) exacerbation; D63.8 Anemia in other chronic diseases classified elsewhere; I10 Essential (primary) hypertension; E78.00 Pure hypercholesterolemia, unspecified; E78.5 Hyperlipidemia, unspecified; I25.10 Atherosclerotic heart disease of native coronary artery without angina pectoris; F17.210 Nicotine dependence, cigarettes, uncomplicated; J20.9 Acute bronchitis, unspecified; K21.9 Gastro-esophageal reflux disease without esophagitis; M06.9 Rheumatoid arthritis, unspecified; M19.90 Unspecified osteoarthritis, unspecified site; M81.0 Age-related osteoporosis without current pathological fracture; Z79.82 Long term (current) use of aspirin; Z79.83 Long term (current) use of bisphosphonates; Z79.899 Other long term (current) drug therapy; Z86.010 Personal history of colon polyps; Z87.11 Personal history of peptic ulcer disease; Z95.5 Presence of coronary angioplasty implant and graft; Z98.51 Tubal ligation status; Z82.49 Family history of ischemic heart disease and other diseases of the circulatory system; Z88.8 Allergy status to other drugs, medicaments and biological substances; Z68.29 Body mass index [BMI] 29.0-29.9, adult
CPT/HCPCS: 36415; 71010; 71250; 71275; 80048; 80061; 80076; 83690; 83880; 84484; 85007; 85025; 85379; 90686; 93005; 93306; 94250; 94620; 94640; 94760; 96374; J0696; J2920; J2930; J7500; J7620; J7626; Q0144; Q9967; 99285-25

== ENCOUNTER 2018-03-10 08:34 | Emergency (ER) | payer BC, MEDICARE | END 2018-03-10 09:02 | disposition home or self-care (01) | LOC: ER 08:34 | DX: T78.49XA Other allergy, initial encounter (principal); L50.0 Allergic urticaria (principal); K21.9 Gastro-esophageal reflux disease without esophagitis; M19.90 Unspecified osteoarthritis, unspecified site; J44.9 Chronic obstructive pulmonary disease, unspecified; E78.00 Pure hypercholesterolemia, unspecified; I10 Essential (primary) hypertension; I25.10 Atherosclerotic heart disease of native coronary artery without angina pectoris; Z98.51 Tubal ligation status; Z88.8 Allergy status to other drugs, medicaments and biological substances; Z91.041 Radiographic dye allergy status | CPT/HCPCS: 99283 ==

== ENCOUNTER 2018-03-21 10:19 | Inpatient (IN) | payer BC, MEDICARE ==
[2018-03-21] VITALS (9 sets, daily range): BP systolic 85–121; BP diastolic 51–66
[~2018-03-21] VITALS: Ht 167.6 cm; Wt 60.8 kg
[~2018-03-21 10:19] MED LIST changes: +ALEN70TA5 PO; +ASPI-482 PO; +ATORVASTATIN CA80 MG PO; +AZAT50TA PO; +AZIT250T6 PO; +BUDE0.5A NEB; +CEPH500T PO; +CLOP75TA PO; +IPRA3AMP29 NEB; +METO-239 PO
[2018-03-21] MEDS ORDERED: FUROSEMIDE 40 MG/4 ML VIAL. IVP ONE (10:45)
--- NOTE | 2018-03-21 10:48 | PHYS DOC ---
Past Medical History Past Medical History: Anemia, Arthritis, CAD, COPD, GERD, High Cholesterol, Hypertension Additional Past Medical Histor: OSTEOPOROSIS, LUPUS Past Surgical History: Tubal ligation, Other Additional Past Surgical Histo: back surgery, carpal tunnel, finger, 2 STENTS Alcohol Use: None Drug Use: None Adult General Chief Complaint Chief Complaint: SHORTNESS OF BREATH HPI HPI Patient is a 67 year old female with history of COPD, CAD, hypertension who presents with progressive shortness of breath increased right leg swelling for the past several days. Patient requires supplemental oxygen at night no posterior breath during the day. Reports dry nonproductive cough and chest wall pain worse with deep breathing and cough. Patient states she is unable to work reviewed and 10 feet without having to stop to catch her breath which is significant decrease from baseline. Patient was evaluated at [facility] yesterday was diagnosed with acute congestive heart failure. States in addition to the EKG, chest x-ray a CT scan of her chest was performed. She was prescribed Lasix and took 1 dose of Lasix since released from their facility yesterday. No fever chills, nausea, vomiting and sweats. No history of DVT or PE. No other acute symptoms or complaints. Patient is a nonsmoker. She is computed at bedside by her family members.[] Review of Systems Review of Systems ROS as per HPI All other systems were reviewed and found to be within normal limits, except as documented in this note. Current Medications Current Medications Current Medications Medications (Trade) Dose Ordered Sig/Elizabeth Start Time Stop Time Status Last Admin Dose Admin Albuterol/ Ipratropium (Duoneb) 3 ml 1X ONCE 03/21/18 11:00 03/21/18 11:01 DC 03/21/18 11:01 3 ML Furosemide (Lasix) 40 mg 1X ONCE 03/21/18 10:45 03/21/18 10:46 DC 03/21/18 10:59 40 MG Allergies Allergies Allergies Coded Allergies Type Severity Reaction Last Updated Verified NSAIDS (Non-Steroidal Anti-Inflamma Allergy Intermediate 05/04/17 Yes Physical Exam Physical Exam Constitutional: Well developed, well nourished, no acute distress, non-toxic appearance. [] HENT: Normocephalic, atraumatic, bilateral external ears normal, oropharynx moist, nose normal. [] Eyes: PERRLA, EOMI, conjunctiva normal, no discharge. [] Neck: Normal range of motion, no tenderness, supple, no stridor. [] Cardiovascular:Heart rate regular rhythm, no murmur bipedal edema [] Lungs & Thorax: Patient's nonlabored, diminished breath sounds and air movement bilaterally.[] Abdomen: Bowel sounds normal, soft, no tenderness. [] Skin: Warm, dry, no erythema, no rash. [] Back: No tenderness.[] Extremities: No tenderness, no cyanosis, no clubbing, ROM intact, no edema. [] Neurologic: Alert and oriented X 3, normal motor function, normal sensory function, no focal deficits noted. [] Psychologic: Affect normal, judgement normal, mood normal. [] Current Patient Data Vital Signs Vital Signs Date Time Temp Pulse Resp B/P (MAP) Pulse Ox O2 Delivery O2 Flow Rate FiO2 03/21/18 12:30 58 24 92/57 (69) 98 Nasal Cannula 2.0 03/21/18 10:30 98.3 98.3 Lab Values Laboratory Tests Test 03/21/18 10:53 White Blood Count 3.7 x10^3/uL (4.0-11.0) L Red Blood Count 3.37 x10^6/uL (3.50-5.40) L Hemoglobin 10.6 g/dL (12.0-15.5) L Hematocrit 31.9 % (36.0-47.0) L Mean Corpuscular Volume 95 fL (79-100) Mean Corpuscular Hemoglobin 31 pg (25-35) Mean Corpuscular Hemoglobin Concent 33 g/dL (31-37) Red Cell Distribution Width 21.2 % (11.5-14.5) H Platelet Count 192 x10^3/uL (140-400) Neutrophils (%) (Auto) 84 % (31-73) H Lymphocytes (%) (Auto) 12 % (24-48) L Monocytes (%) (Auto) 3 % (0-9) Eosinophils (%) (Auto) 2 % (0-3) Basophils (%) (Auto) 0 % (0-3) Neutrophils # (Auto) 3.1 x10^3uL (1.8-7.7) Lymphocytes # (Auto) 0.4 x10^3/uL (1.0-4.8) L Monocytes # (Auto) 0.1 x10^3/uL (0.0-1.1) Eosinophils # (Auto) 0.1 x10^3/uL (0.0-0.7) Basophils # (Auto) 0.0 x10^3/uL (0.0-0.2) Platelet Estimate Pending Sodium Level 136 mmol/L (136-145) Potassium Level 4.2 mmol/L (3.5-5.1) Chloride Level 102 mmol/L (98-107) Carbon Dioxide Level 29 mmol/L (21-32) Anion Gap 5 (6-14) L Blood Urea Nitrogen 15 mg/dL (7-20) Creatinine 0.9 mg/dL (0.6-1.0) Estimated GFR (Cockcroft-Gault) 62.6 BUN/Creatinine Ratio 17 (6-20) Glucose Level 116 mg/dL (70-99) H Calcium Level 8.9 mg/dL (8.5-10.1) Total Bilirubin 1.5 mg/dL (0.2-1.0) H Aspartate Amino Transferase (AST) 78 U/L (15-37) H Alanine Aminotransferase (ALT) 80 U/L (14-59) H Alkaline Phosphatase 89 U/L (46-116) Troponin I Quantitative < 0.017 ng/mL (0.000-0.055) MW-Fxb-H-Type Natriuretic Peptide 3646 pg/mL (0-124) H Total Protein 6.6 g/dL (6.4-8.2) Albumin 2.3 g/dL (3.4-5.0) L Albumin/Globulin Ratio 0.5 (1.0-1.7) L Laboratory Tests 03/21/18 10:53 Laboratory Tests 03/21/18 10:53 EKG EKG [EKG] Normocephalic cbradycardia, rate 57, QTC 457, no acute ST-T wave changes. Radiology/Procedures Radiology/Procedures CXR: Pulmonary vascular congestion with mild bilateral pleural effusions per radiology report [] Course & Med Decision Making Course & Med Decision Making EKG, pertinent Labs and Imaging studies reviewed. (See chart for details) [Patient with new onset congestive heart failure is mixed with COPD exacerbation. Symptoms improved with diuresis in the emergency department. EKG, nonacute troponin negative. Will admit to Dr. Desir service with anticipated cardiology consult. Courtesy bridging orders provided.] Dhruv Disclaimer Dragon Disclaimer This electronic medical record was generated, in whole or in part, using a voice recognition dictation system. Departure Departure Impression: Primary Impression: COPD exacerbation Additional Impression: New onset of congestive heart failure Admitting Physician: Reinaldo Desir Condition: GOOD Referrals: REINALDO DESIR MD (PCP) Problem Qualifiers REID RUSH DO Mar 21, 2018 10:48
[2018-03-21] MEDS ORDERED: IPRATRPIUM/ALBUTEROL 0.5/2.5MG 3 ML NEBU. NEB ONE (11:00)
--- NOTE | 2018-03-21 11:08 | RAD ---
Portable chest, 03/21/2018: HISTORY: Shortness of breath Comparison is made to a study from 05/03/2017. The heart size is normal. There is calcific plaquing of the aorta. There are faint reticulonodular interstitial type opacities most prominent in the lung bases, also evident on the previous study. Blunting of the lateral costophrenic angles is new and suggests the presence of a small amount pleural fluid. IMPRESSION: 1. Mildly prominent interstitial opacities suggesting chronic lung disease versus low-grade interstitial edema. 2. Probable tiny bilateral pleural effusions. Electronically signed by: Med Prince MD (03/21/2018 11:05 AM) [facility]
[2018-03-21 11:13] LABS: BASO % 0 % (0-3); EOS # 0.1 x10^3/uL (0.0-0.7); EOS % 2 % (0-3); HEMATOCRIT 31.9 % (36.0-47.0); HEMOGLOBIN 10.6 g/dL (12.0-15.5); LYMPH # 0.4 x10^3/uL (1.0-4.8); LYMPH % 12 % (24-48); MEAN CORPUSCULAR HEMOGLOBIN 31 pg (25-35); MEAN CORPUSCULAR HGB CONC 33 g/dL (31-37); MEAN CORPUSCULAR VOLUME 95 fL (79-100); MONO # 0.1 x10^3/uL (0.0-1.1); MONO % 3 % (0-9); NEUT # 3.1 x10^3uL (1.8-7.7); NEUT % 84 % (31-73); PLATELET COUNT 192 x10^3/uL (140-400); RED BLOOD COUNT 3.37 x10^6/uL (3.50-5.40); RED CELL DISTRIBUTION WIDTH 21.2 % (11.5-14.5); WHITE BLOOD COUNT 3.7 x10^3/uL (4.0-11.0)
--- NOTE | 2018-03-21 11:41 | EKG ---
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
[2018-03-21] MEDS ORDERED: ALBU6.7H8 IH (12:11)
[2018-03-21] MEDS ORDERED: DOXY100C14 PO (12:11)
[2018-03-21 12:17] LABS: BASE EXCESS ABG 4 mmol/L (-3-3); HCO3 ABG 29 mmol/L (21-28); PCO2 ABG 43 mmHg (35-46); PO2 ABG 74 mmHg (65-108); SAT O2 ABG 95 % (92-99)
[2018-03-21 13:06] LABS: CALCIUM 8.9 mg/dL (8.5-10.1); CREATININE 0.9 mg/dL (0.6-1.0); GFR 62.6; POTASSIUM 4.2 mmol/L (3.5-5.1)
[2018-03-21 13:12] LABS: ALBUMIN 2.3 g/dL (3.4-5.0); ALBUMIN/GLOBULIN RATIO 0.5 (1.0-1.7); TOTAL BILIRUBIN 1.5 mg/dL (0.2-1.0); TOTAL PROTEIN 6.6 g/dL (6.4-8.2)
[2018-03-21 14:08] LABS: FIO2 ABG 28%
[2018-03-21] MEDS: FUROSEMIDE 20 MG/2 ML VIAL. IVP SCH (14:18)
[2018-03-21 14:23] LABS: ANISOCYTOSIS MOD; OVALOCYTES FEW; PLT ESTIMATE ADEQUATE (ADEQUATE); POLYCHROMASIA SLIGHT; SCHISTOCYTES FEW; TOXIC GRANULATION SLIGHT
[2018-03-21] MEDS ORDERED: FAMO20TA5 PO (15:19)
[2018-03-21] MEDS ORDERED: PROAIR RESPICL90 MCG IH (15:19)
[2018-03-21] MEDS ORDERED: ACLI400A2 IH (15:19)
[2018-03-21] MEDS ORDERED: TRAM50TA PO (15:19)
[2018-03-21] MEDS ORDERED: METO25TA4 PO (15:19)
[2018-03-21] MEDS ORDERED: ACETAMINOPHEN 325 MG TABLET. PO PRN (16:00)
[2018-03-21] MEDS ORDERED: MAGNESIUM HYDROXIDE 2,400 MG/30 ML ORAL.SUSP. PO PRN (16:00)
[2018-03-21] MEDS ORDERED: traMADol 50 MG TABLET PO PRN (16:00)
[2018-03-21] MEDS: ENOXAPARIN 40 MG/0.4 ML SYRINGE. SQ SCH (16:00)
--- NOTE | 2018-03-21 16:08 | PDOC ---
Provider Note Provider Note history and physical dictated # [id number] ZOHREH DEMPSEY MD Mar 21, 2018 16:08
[2018-03-21] MEDS: IPRATRPIUM/ALBUTEROL 0.5/2.5MG 3 ML NEBU. NEB SCH ×2 (16:13→20:00)
[2018-03-21] MEDS ORDERED: ALBUTEROL SULFATE 2.5 MG/3 ML NEBU. NEB PRN (16:15)
--- NOTE | 2018-03-21 17:39 | HP ---
ADMIT DATE: 03/21/2018 LOCATION: The patient in the Intensive Care Unit in room 110. HISTORY OF PRESENT ILLNESS: The patient is a 67-year-old white female with history of chronic obstructive pulmonary disease and chronic hypoxic respiratory failure who has coronary artery disease and hyperlipidemia, systemic lupus erythematosus, notes the onset of shortness of breath for the last 6 days. She has been having dyspnea on exertion and lower extremity edema. She has had some chest pain associated with a dry cough, although she coughed up a scant amount of yellow sputum yesterday. She sought help at the [facility] yesterday and was evaluated and her chest x-ray was consistent with acute congestive heart failure and her BNP was elevated. She apparently had a CAT scan of the chest and angiogram and was negative for pulmonary embolus, and the patient declined admission to local hospital and felt better after she received IV furosemide and was sent home on oral furosemide 20 mg daily. The patient was told to go to the Emergency Room if she became more short of breath and she did, and she went to the [facility] Emergency Room with increased shortness of breath. A chest x-ray again showed evidence of congestive heart failure and her BNP was also quite high, and she received a dose of Lasix in the Emergency Room. She is not short of breath now. She is admitted for further evaluation of her new-onset congestive heart failure. She has never had any history of congestive heart failure in the past. ALLERGIES AND INTOLERANCES: INCLUDE DARVON AND NONSTEROIDAL ANTI-INFLAMMATORY DRUGS. ALSO, SHE HAS AN ALLERGY TO ORAL AND IV IODINE DYE. MEDICATIONS: Prior to admission include albuterol inhaler 1 puff every 4-6 hours p.r.n., Alendronate 70 mg every week, aspirin 81 mg every day, atorvastatin 80 mg every day, budesonide nebulizer treatments b.i.d., Plavix 75 mg every day, Pepcid 20 mg b.i.d., Plaquenil 200 mg b.i.d., Imuran 50 mg b.i.d., DuoNeb nebulizer treatments q.i.d., metoprolol tartrate 12.5 mg b.i.d., nitroglycerin 0.4 mg sublingual p.r.n., tramadol 50 mg every 4 hours p.r.n., Tudorza Pressair 1 puff daily, and vitamin D 1000 units every day. PAST MEDICAL HISTORY: Significant for chronic obstructive pulmonary disease, coronary artery disease, gastroesophageal reflux disease, chronic obstructive pulmonary disease, chronic hypoxic respiratory failure, she is normally on oxygen 2 liters per nasal cannula at home; systemic lupus erythematosus, hyperlipidemia, osteoporosis, mention here of rheumatoid arthritis. She had a colonoscopy in 2012, noted to have colon polyps. She has a history of anemia of chronic disease. She had esophagitis in 2012 with an EGD with hiatal hernia, also had internal hemorrhoids during her colonoscopy. She had a myocardial infarction and apparently had a coronary angioplasty and stent to the right coronary artery and the left circumflex coronary artery in 09/2015. She has a history of pneumonia, had stomach ulcers in the past. She has had back surgery in 1986, bilateral tubal ligation in 1973, carpal tunnel release in 1984, and some finger surgery in 1988. SOCIAL HISTORY: She does not drink alcohol. She quit smoking in 08/2014. FAMILY HISTORY: Brother had a cerebrovascular accident. Father had congestive heart failure. Mother had heart problems. FAMILY HISTORY: Not mentioned. REVIEW OF SYSTEMS: GENERAL: No fever, chills or sweats in the last 3 days. CARDIOVASCULAR: She has had chest pain with coughing. PULMONARY: She has some dyspnea on exertion. She had occasional cough with some yellow sputum the other day. ENDOCRINE: No diabetes mellitus. SKIN: No rashes. NEUROLOGIC: No focal weakness. Rest of the systems reviewed are negative except as stated in history of present illness. PHYSICAL EXAMINATION: VITAL SIGNS: Temperature 98.3 degrees, apical pulse 59, respiratory rate 18, blood pressure 114/64, oxygen saturation 96% on 2 liters per nasal cannula. HEENT: Eyes: Gaze is conjugate. Mouth: Tongue is midline. NECK: There is no cervical lymphadenopathy. HEART: Reveals an S1, S2. There is no S3 or murmur. LUNGS: Clear anteriorly, but she had decreased breath sounds posteriorly with crackles in both bases. ABDOMEN: Soft, nontender with no hepatosplenomegaly, masses or tenderness. EXTREMITIES: Lower extremities without edema. SKIN: No rashes. NEUROLOGIC: Revealed no focal weakness of the extremities or facial asymmetry. LABORATORY DATA: White count 3.7, hemoglobin 10.6, platelet count 192,000, 84 polys, 12 lymphocytes, MCV of 95. Arterial blood gas showed a pH of 7.45, pCO2 of 43 and a pO2 of 74. Sodium 136, potassium 4.2, chloride 102, total CO2 of 29, BUN 15, creatinine 0.9, blood sugar 116. SGOT was 78, SGPT of 50, total bilirubin was 1.5, alkaline phosphatase 89. Her proBNP was elevated at 3646 and the albumin was 2.3. She had a chest x-ray done, which showed mildly prominent interstitial opacities suggesting chronic lung disease versus low grade interstitial edema and suspected tiny bilateral pleural effusions. Heart size was normal. She had an electrocardiogram done, which showed normal sinus rhythm and no acute change. She did have some Q-waves in the inferior leads. ASSESSMENT: 1. Acute congestive heart failure. It is unclear if it is systolic or diastolic. Her brain natriuretic peptide is elevated. Her chest x-ray was consistent with congestive heart failure. She does have crackles in her lungs, increasing lower extremity edema, and dyspnea on exertion for the last 5 days. 2. Chronic obstructive pulmonary disease. 3. Acute on chronic hypoxic respiratory failure. 4. Coronary artery disease. 5. Hyperlipidemia. 6. Anemia of chronic disease. 7. Systemic lupus erythematosus. 8. Gastroesophageal reflux disease. 9. Moderate protein calorie malnutrition. PLAN: At this time is to consult Dr. Pedroza for Cardiology and Dr. Cosme for Pulmonary. We will continue with her oxygen and IV Lasix at 20 mg every 12 hours. Recheck her labs tomorrow. We will order a venous Doppler of both legs to rule out deep vein thrombosis. Obtain a CAT scan of the chest and angiogram from the [facility], which was done yesterday. We will also order some Lovenox for deep vein thrombosis prophylaxis. Continue her budesonide and DuoNeb nebulizer treatments for COPD and continue her metoprolol, aspirin and Plavix for coronary artery disease. Continue the atorvastatin for hyperlipidemia. She does have some liver function test elevation, which could be from right-sided heart failure, but we will also get an ultrasound of her abdomen to look at her gallbladder and liver. ZOHREH DEMPSEY MD DR: PALMER/jeanine JOB#: [id number] / [id number]
[2018-03-21] MEDS: BUDESONIDE 0.5 MG/2 ML NEBU. NEB SCH (20:00)
[2018-03-21] MEDS: azaTHIOprine 50 MG TABLET PO SCH (20:32)
[2018-03-21] MEDS: HYDROXYCHLOROQUINE 200 MG TABLET PO SCH (20:32)
[2018-03-21] MEDS: FAMOTIDINE 20 MG TABLET. PO SCH (20:32)
[2018-03-21] MEDS: METOPROLOL TART IMMED RELEASE 25 MG TABLET. PO SCH (20:32)
[2018-03-21] MEDS: ATORVASTATIN CALCIUM 40 MG TABLET. PO SCH (20:32)
[2018-03-22] VITALS (16 sets, daily range): BP systolic 89–135; BP diastolic 50–79
[2018-03-22 05:45] LABS: BASO % 0 % (0-3); EOS # 0.1 x10^3/uL (0.0-0.7); EOS % 2 % (0-3); HEMATOCRIT 31.6 % (36.0-47.0); HEMOGLOBIN 10.6 g/dL (12.0-15.5); LYMPH # 0.4 x10^3/uL (1.0-4.8); LYMPH % 15 % (24-48); MEAN CORPUSCULAR HEMOGLOBIN 31 pg (25-35); MEAN CORPUSCULAR HGB CONC 34 g/dL (31-37); MEAN CORPUSCULAR VOLUME 94 fL (79-100); MONO # 0.1 x10^3/uL (0.0-1.1); MONO % 2 % (0-9); NEUT # 2.4 x10^3uL (1.8-7.7); NEUT % 81 % (31-73); PLATELET COUNT 170 x10^3/uL (140-400); RED BLOOD COUNT 3.37 x10^6/uL (3.50-5.40); WHITE BLOOD COUNT 2.9 x10^3/uL (4.0-11.0)
[2018-03-22 06:05] LABS: ALBUMIN 2.2 g/dL (3.4-5.0); ALBUMIN/GLOBULIN RATIO 0.6 (1.0-1.7); CALCIUM 8.6 mg/dL (8.5-10.1); CREATININE 0.9 mg/dL (0.6-1.0); GFR 62.6; POTASSIUM 4.1 mmol/L (3.5-5.1); TOTAL BILIRUBIN 1.3 mg/dL (0.2-1.0); TOTAL PROTEIN 6.2 g/dL (6.4-8.2)
[2018-03-22 06:19] LABS: MAGNESIUM 1.8 mg/dL (1.8-2.4)
[2018-03-22 06:20] LABS: CHOLESTEROL/HDL RATIO 2.1
[2018-03-22] MEDS: BUDESONIDE 0.5 MG/2 ML NEBU. NEB SCH (07:25)
[2018-03-22] MEDS: IPRATRPIUM/ALBUTEROL 0.5/2.5MG 3 ML NEBU. NEB SCH ×3 (07:25→14:54)
--- NOTE | 2018-03-22 07:29 | PDOC ---
Provider Note Provider Note [id number] acute resp fail acute diastolic chf copd see orders RHIANNON MARMOLEJO MD Mar 22, 2018 07:29
[2018-03-22] MEDS: FAMOTIDINE 20 MG TABLET. PO SCH ×2 (07:35→20:53)
[2018-03-22] MEDS: HYDROXYCHLOROQUINE 200 MG TABLET PO SCH ×2 (07:35→20:44)
[2018-03-22] MEDS: CLOPIDOGREL BISULFATE 75 MG TABLET PO SCH (07:35)
[2018-03-22] MEDS: ASPIRIN CHEWABLE 81 MG TABLET. PO SCH (07:35)
[2018-03-22] MEDS: azaTHIOprine 50 MG TABLET PO SCH ×2 (07:35→21:08)
[2018-03-22] MEDS: FUROSEMIDE 20 MG/2 ML VIAL. IVP SCH ×2 (07:36→14:00)
--- NOTE | 2018-03-22 07:42 | RAD ---
Bilateral lower extremity venous ultrasound, 03/21/2018: History: Bilateral lower extremity swelling Duplex evaluation of the deep veins in the lower extremities was performed including grayscale, color-flow and spectral Doppler analysis. The femoral and popliteal veins demonstrate normal compressibility and normal responses to distal augmentation maneuvers. Color imaging of those vessels shows no evidence of intraluminal clot. The visualized deep veins in both calves are patent. IMPRESSION: There is no sonographic evidence of deep vein thrombosis in either lower extremity. Electronically signed by: Med Prince MD (03/22/2018 7:39 AM) [facility]
[2018-03-22] MEDS ORDERED: NON FORMULARY ITEM PO SCH (08:00)
[2018-03-22] MEDS: METOPROLOL TART IMMED RELEASE 25 MG TABLET. PO SCH ×2 (09:00→20:44)
--- NOTE | 2018-03-22 09:10 | CONS ---
DATE OF CONSULTATION: 03/22/2018 I was asked to see this 67-year-old lady for acute respiratory failure, shortness of breath, CHF, COPD. HISTORY OF PRESENT ILLNESS: The patient has history of [id number] smoking, stopped smoking 2 years ago. She is on oxygen at night. She has been followed by Dr. Neal. She has had shortness of breath, chest tightness and chest pain for the past few days. She went to the Emergency Room at [facility], had a CT of the chest done, which reportedly she was told she does not have pulmonary embolism, but has acute CHF. She was advised to be admitted, but she left, came to the Emergency Room here at [facility]. She has history of coronary artery disease 2 years ago and had 2 stents. She was given Lasix. Her shortness of breath has improved. She is currently on 2 liters of oxygen. She does have some cough more than usual. She denies wheezing, fever or chills. PAST MEDICAL HISTORY: COPD, on nocturnal oxygen; coronary artery disease, status post stent; gastroesophageal reflux disease; SLE; hyperlipidemia; osteoporosis. ALLERGIES: NSAIDs. MEDICATIONS: Currently, she is on vitamin D, aspirin, Plavix, Lopressor, Imuran, Plaquenil, Pepcid, Pulmicort, DuoNeb, Lovenox 40 mg subcutaneous daily, Lasix 20 mg IV b.i.d. SOCIAL HISTORY: History of [id number] smoking, stopped smoking 2 years ago. FAMILY HISTORY: Hypertension. REVIEW OF SYSTEMS: As mentioned as above. She has lower extremity edema, other systems otherwise negative. PHYSICAL EXAMINATION: VITAL SIGNS: Her O2 saturation on 2 liters of oxygen is 97%, respiratory rate 20, heart rate 59, blood pressure 112/65, temperature 98.2. HEENT: Normocephalic, atraumatic. Pupils equal, round, reactive to light. Throat is clear. Nose is clear. NECK: Positive JVD. No lymphadenopathy or thyromegaly. CARDIOVASCULAR: Regular rate and rhythm. PMI is nondisplaced. CHEST: Inspection is normal. LUNGS: There are bibasilar crackles, dullness at the bases. ABDOMEN: Soft. Bowel sounds are good. There is no mass. EXTREMITIES: There is trace edema. LYMPHATICS: There is no lymphadenopathy. SKIN: Warm. NEUROLOGIC: Alert and oriented. LABORATORY DATA: I reviewed the following lab data: Chest x-ray shows increased vascular marking, small bilateral pleural effusion. Sodium 137, potassium 4.1, chloride 101, CO2 32, glucose 91, BUN 19, creatinine 0.9. Troponin less than 0.17. BNP 3646. WBC 2.9, hemoglobin 10.6, platelets 170. IMPRESSION: 1. Acute respiratory failure secondary to acute diastolic congestive heart failure versus others. 2. Abnormal chest x-ray. 3. Acute diastolic congestive heart failure. 4. Chronic obstructive pulmonary disease. 5. Ex-smoker. 6. Systemic lupus erythematosus, on Plaquenil and azathioprine, immunocompromised. 7. Anemia. 8. Leukopenia. 9. Ex-smoker. PLAN AND RECOMMENDATIONS: 1. Titrate FiO2 to keep O2 saturation 92%. 2. Continue bronchodilator. 3. Continue inhaled corticosteroid, may require systemic steroid. 4. I agree with Lasix 20 mg IV every 12. Keep intake less than output. Monitor potassium and creatinine. 5. Agree with Cardiology consultation. 6. I do recommend echocardiogram. 7. Monitor respiratory status very closely. 8. Lovenox for DVT prophylaxis. 9. Protonix for stress ulcer prophylaxis. 10. The findings and recommendations were discussed with the patient, RN and RT. The patient understood and agreed to proceed with the plan. I have answered all of her questions. Thank you very much for allowing me to participate in care of this very nice lady. RHIANNON MARMOLEJO M.D. : TONG/jeanine JOB#: [id number] / [id number]
--- NOTE | 2018-03-22 10:40 | PDOC ---
PROGRESS NOTES Subjective Subjective feels better, short of breath when she moves around. chest pain when she takes a deep breath. occasional cough with clear sputum. lab reviewed. iron studies okay. says she had pernicious anemia in past. will check vitamin b12 level. has leukopenia and will consult dr. Sims. has a history of SLE and takes azothioprine had a good diuresis. bilateral LE venous doppler neg for DVT. Objective Objective Vital Signs Date Time Temp Pulse Resp B/P (MAP) Pulse Ox O2 Delivery O2 Flow Rate FiO2 03/22/18 10:00 67 17 108/69 (82) 92 Nasal Cannula 2.0 03/22/18 08:00 98.4 98.4 Intake and Output 03/22/18 07:00 Intake Total 950 ml Output Total 2480 ml Balance -1530 ml Intake Oral 950 ml Output Urine Total 2480 ml # Voids 2 Physical Exam Abdomen: Soft Heart: Regular rate, Normal S1, Normal S2 Extremities: No edema General: Alert HEENT: Atraumatic Lungs: Other (decreased breath sounds with some basilar crackles.) Neuro: Normal speech Psych/Mental Status: Mental status NL Skin: No rashes Assessment Assessment Problems1. Acute congestive heart failure. It is unclear if it is systolic or diastolic. echo report pending 2. Chronic obstructive pulmonary disease. 3. Acute on chronic hypoxic respiratory failure. 4. Coronary artery disease. 5. Hyperlipidemia. 6. Anemia of chronic disease. 7. Systemic lupus erythematosus. 8. Gastroesophageal reflux disease. 9. Moderate protein calorie malnutrition. Leukopenia Medical Problems: (1) COPD (chronic obstructive pulmonary disease) Status: Acute (2) Cough with hemoptysis Status: Acute Plan Plan of Care transfer to telemetry continue iv furosemide consult dr. Sims check labs and vitamin B12 level tomorrow continue oxygen and nebulizer rx await echocardiogram report Comment Review of Relevant I have reviewed the following items mata (where applicable) has been applied. Labs Laboratory Tests Test 03/21/18 10:53 03/21/18 11:55 03/22/18 05:00 White Blood Count 3.7 x10^3/uL (4.0-11.0) 2.9 x10^3/uL (4.0-11.0) Red Blood Count 3.37 x10^6/uL (3.50-5.40) 3.37 x10^6/uL (3.50-5.40) Hemoglobin 10.6 g/dL (12.0-15.5) 10.6 g/dL (12.0-15.5) Hematocrit 31.9 % (36.0-47.0) 31.6 % (36.0-47.0) Mean Corpuscular Volume 95 fL (79-100) 94 fL (79-100) Mean Corpuscular Hemoglobin 31 pg (25-35) 31 pg (25-35) Mean Corpuscular Hemoglobin Concent 33 g/dL (31-37) 34 g/dL (31-37) Red Cell Distribution Width 21.2 % (11.5-14.5) 21.0 % (11.5-14.5) Platelet Count 192 x10^3/uL (140-400) 170 x10^3/uL (140-400) Neutrophils (%) (Auto) 84 % (31-73) 81 % (31-73) Lymphocytes (%) (Auto) 12 % (24-48) 15 % (24-48) Monocytes (%) (Auto) 3 % (0-9) 2 % (0-9) Eosinophils (%) (Auto) 2 % (0-3) 2 % (0-3) Basophils (%) (Auto) 0 % (0-3) 0 % (0-3) Neutrophils # (Auto) 3.1 x10^3uL (1.8-7.7) 2.4 x10^3uL (1.8-7.7) Lymphocytes # (Auto) 0.4 x10^3/uL (1.0-4.8) 0.4 x10^3/uL (1.0-4.8) Monocytes # (Auto) 0.1 x10^3/uL (0.0-1.1) 0.1 x10^3/uL (0.0-1.1) Eosinophils # (Auto) 0.1 x10^3/uL (0.0-0.7) 0.1 x10^3/uL (0.0-0.7) Basophils # (Auto) 0.0 x10^3/uL (0.0-0.2) 0.0 x10^3/uL (0.0-0.2) Toxic Granulation Slight Platelet Estimate Adequate (ADEQUATE) Polychromasia Slight Anisocytosis Mod Ovalocytes Few Schistocytes Few Sodium Level 136 mmol/L (136-145) 137 mmol/L (136-145) Potassium Level 4.2 mmol/L (3.5-5.1) 4.1 mmol/L (3.5-5.1) Chloride Level 102 mmol/L (98-107) 101 mmol/L (98-107) Carbon Dioxide Level 29 mmol/L (21-32) 32 mmol/L (21-32) Anion Gap 5 (6-14) 4 (6-14) Blood Urea Nitrogen 15 mg/dL (7-20) 19 mg/dL (7-20) Creatinine 0.9 mg/dL (0.6-1.0) 0.9 mg/dL (0.6-1.0) Estimated GFR (Cockcroft-Gault) 62.6 62.6 BUN/Creatinine Ratio 17 (6-20) 21 (6-20) Glucose Level 116 mg/dL (70-99) 91 mg/dL (70-99) Calcium Level 8.9 mg/dL (8.5-10.1) 8.6 mg/dL (8.5-10.1) Total Bilirubin 1.5 mg/dL (0.2-1.0) 1.3 mg/dL (0.2-1.0) Aspartate Amino Transf (AST/SGOT) 78 U/L (15-37) 92 U/L (15-37) Alanine Aminotransferase (ALT/SGPT) 80 U/L (14-59) 93 U/L (14-59) Alkaline Phosphatase 89 U/L (46-116) 87 U/L (46-116) Troponin I Quantitative < 0.017 ng/mL (0.000-0.055) NF-Qpu-O-Type Natriuretic Peptide 3646 pg/mL (0-124) Total Protein 6.6 g/dL (6.4-8.2) 6.2 g/dL (6.4-8.2) Albumin 2.3 g/dL (3.4-5.0) 2.2 g/dL (3.4-5.0) Albumin/Globulin Ratio 0.5 (1.0-1.7) 0.6 (1.0-1.7) O2 Saturation 95 % (92-99) Arterial Blood pH 7.45 (7.35-7.45) Arterial Blood pCO2 at Patient Temp 43 mmHg (35-46) Arterial Blood pO2 at Patient Temp 74 mmHg (65-108) Arterial Blood HCO3 29 mmol/L (21-28) Arterial Blood Base Excess 4 mmol/L (-3-3) FiO2 28% Magnesium Level 1.8 mg/dL (1.8-2.4) Iron Level 34 ug/dL (50-170) Total Iron Binding Capacity 186 ug/dL (250-450) Iron Saturation 18 % (15-34) Ferritin 240 ng/mL (8-252) Triglycerides Level 34 mg/dL (0-150) Cholesterol Level 66 mg/dL (0-200) LDL Cholesterol, Calculated 27 mg/dL (0-100) VLDL Cholesterol, Calculated 7 mg/dL (0-40) Non-HDL Cholesterol Calculated 34 mg/dL (0-129) HDL Cholesterol 32 mg/dL (40-60) Cholesterol/HDL Ratio 2.1 Laboratory Tests Test 03/21/18 10:53 03/21/18 11:55 03/22/18 05:00 White Blood Count 3.7 x10^3/uL (4.0-11.0) 2.9 x10^3/uL (4.0-11.0) Red Blood Count 3.37 x10^6/uL (3.50-5.40) 3.37 x10^6/uL (3.50-5.40) Hemoglobin 10.6 g/dL (12.0-15.5) 10.6 g/dL (12.0-15.5) Hematocrit 31.9 % (36.0-47.0) 31.6 % (36.0-47.0) Mean Corpuscular Volume 95 fL (79-100) 94 fL (79-100) Mean Corpuscular Hemoglobin 31 pg (25-35) 31 pg (25-35) Mean Corpuscular Hemoglobin Concent 33 g/dL (31-37) 34 g/dL (31-37) Red Cell Distribution Width 21.2 % (11.5-14.5) 21.0 % (11.5-14.5) Platelet Count 192 x10^3/uL (140-400) 170 x10^3/uL (140-400) Neutrophils (%) (Auto) 84 % (31-73) 81 % (31-73) Lymphocytes (%) (Auto) 12 % (24-48) 15 % (24-48) Monocytes (%) (Auto) 3 % (0-9) 2 % (0-9) Eosinophils (%) (Auto) 2 % (0-3) 2 % (0-3) Basophils (%) (Auto) 0 % (0-3) 0 % (0-3) Neutrophils # (Auto) 3.1 x10^3uL (1.8-7.7) 2.4 x10^3uL (1.8-7.7) Lymphocytes # (Auto) 0.4 x10^3/uL (1.0-4.8) 0.4 x10^3/uL (1.0-4.8) Monocytes # (Auto) 0.1 x10^3/uL (0.0-1.1) 0.1 x10^3/uL (0.0-1.1) Eosinophils # (Auto) 0.1 x10^3/uL (0.0-0.7) 0.1 x10^3/uL (0.0-0.7) Basophils # (Auto) 0.0 x10^3/uL (0.0-0.2) 0.0 x10^3/uL (0.0-0.2) Toxic Granulation Slight Platelet Estimate Adequate (ADEQUATE) Polychromasia Slight Anisocytosis Mod Ovalocytes Few Schistocytes Few Sodium Level 136 mmol/L (136-145) 137 mmol/L (136-145) Potassium Level 4.2 mmol/L (3.5-5.1) 4.1 mmol/L (3.5-5.1) Chloride Level 102 mmol/L (98-107) 101 mmol/L (98-107) Carbon Dioxide Level 29 mmol/L (21-32) 32 mmol/L (21-32) Anion Gap 5 (6-14) 4 (6-14) Blood Urea Nitrogen 15 mg/dL (7-20) 19 mg/dL (7-20) Creatinine 0.9 mg/dL (0.6-1.0) 0.9 mg/dL (0.6-1.0) Estimated GFR (Cockcroft-Gault) 62.6 62.6 BUN/Creatinine Ratio 17 (6-20) 21 (6-20) Glucose Level 116 mg/dL (70-99) 91 mg/dL (70-99) Calcium Level 8.9 mg/dL (8.5-10.1) 8.6 mg/dL (8.5-10.1) Total Bilirubin 1.5 mg/dL (0.2-1.0) 1.3 mg/dL (0.2-1.0) Aspartate Amino Transf (AST/SGOT) 78 U/L (15-37) 92 U/L (15-37) Alanine Aminotransferase (ALT/SGPT) 80 U/L (14-59) 93 U/L (14-59) Alkaline Phosphatase 89 U/L (46-116) 87 U/L (46-116) Troponin I Quantitative < 0.017 ng/mL (0.000-0.055) AQ-Czz-G-Type Natriuretic Peptide 3646 pg/mL (0-124) Total Protein 6.6 g/dL (6.4-8.2) 6.2 g/dL (6.4-8.2) Albumin 2.3 g/dL (3.4-5.0) 2.2 g/dL (3.4-5.0) Albumin/Globulin Ratio 0.5 (1.0-1.7) 0.6 (1.0-1.7) O2 Saturation 95 % (92-99) Arterial Blood pH 7.45 (7.35-7.45) Arterial Blood pCO2 at Patient Temp 43 mmHg (35-46) Arterial Blood pO2 at Patient Temp 74 mmHg (65-108) Arterial Blood HCO3 29 mmol/L (21-28) Arterial Blood Base Excess 4 mmol/L (-3-3) FiO2 28% Magnesium Level 1.8 mg/dL (1.8-2.4) Iron Level 34 ug/dL (50-170) Total Iron Binding Capacity 186 ug/dL (250-450) Iron Saturation 18 % (15-34) Ferritin 240 ng/mL (8-252) Triglycerides Level 34 mg/dL (0-150) Cholesterol Level 66 mg/dL (0-200) LDL Cholesterol, Calculated 27 mg/dL (0-100) VLDL Cholesterol, Calculated 7 mg/dL (0-40) Non-HDL Cholesterol Calculated 34 mg/dL (0-129) HDL Cholesterol 32 mg/dL (40-60) Cholesterol/HDL Ratio 2.1 Medications Current Medications Furosemide (Lasix) 40 mg 1X ONCE IVP Last administered on 03/21/18at 10:59; Start 03/21/18 at 10:45; Stop 03/21/18 at 10:46; Status DC Albuterol/ Ipratropium (Duoneb) 3 ml 1X ONCE NEB Last administered on at 11:01; Start 03/21/18 at 11:00; Stop 03/21/18 at 11:01; Status DC Furosemide (Lasix) 20 mg BID92 IVP Last administered on 03/22/18at 07:36; Start 03/21/18 at 14:00 Enoxaparin Sodium (Lovenox 40mg Syringe) 40 mg Q24H SQ Last administered on 06/28at 16:00; Start 03/21/18 at 16:00 Acetaminophen (Tylenol) 650 mg PRN Q6HRS PRN PO MILD PAIN / TEMP; Start at 16:00 Magnesium Hydroxide (Milk Of Magnesia) 2,400 mg PRN DAILY PRN PO CONSTIPATION; Start 03/21/18 at 16:00 Budesonide (Pulmicort) 0.5 mg RTBID NEB Last administered on 03/22/18at 07:25; Start 03/21/18 at 20:00 Albuterol/ Ipratropium (Duoneb) 3 ml RTQID NEB Last administered on 03/22/18at 07:25; Start 03/21/18 at 16:00 Albuterol Sulfate (Ventolin Neb Soln) 2.5 mg PRN Q4HRS PRN NEB SHORTNESS OF BREATH; Start 03/21/18 at 16:15 Atorvastatin Calcium (Lipitor) 80 mg QHS PO Last administered on 03/21/18at 20: 32; Start 03/21/18 at 21:00 Clopidogrel Bisulfate (Plavix) 75 mg DAILYWBKFT PO Last administered on at 07:35; Start 03/22/18 at 08:00 Aspirin (Children'S Aspirin) 81 mg DAILYWBKFT PO Last administered on at 07:35; Start 03/22/18 at 08:00 Famotidine (Pepcid) 20 mg BID PO Last administered on 03/22/18at 07:35; Start at 21:00 Hydroxychloroquine Sulfate (Plaquenil) 200 mg BID PO Last administered on at 07:35; Start 03/21/18 at 21:00 Azathioprine (Imuran) 50 mg BID PO Last administered on 03/22/18at 07:35; Start 03/21/18 at 21:00 Metoprolol Tartrate (Lopressor) 12.5 mg BID PO ; Start 03/21/18 at 21:00 Tramadol HCl (Ultram) 50 mg PRN Q6HRS PRN PO PAIN; Start 03/21/18 at 16:00 Vitamin D (Vitamin D3) 1,000 unit DAILY PO ; Start 03/22/18 at 09:00 Non-Formulary Medication 1 ea QSU@0800 PO Last administered on 03/22/18at 07:57 ; Start 03/22/18 at 08:00 Active Scripts Active Reported Tudorza Pressair (Aclidinium [place]) 400 Mcg Aer.pow.ba 400 Mcg IH Tramadol Hcl 50 Mg Tablet 50 Mg PO Q4HRS PRN Famotidine 20 Mg Tablet 20 Mg PO HS Proair Respiclick (Albuterol Sulfate) 90 Mcg Aer.pow.ba 1 Puff IH PRN Q6HRS PRN Metoprolol Tartrate 25 Mg Tablet 0.5 Tab PO BID Alendronate Sodium 70 Mg Tablet 70 Mg PO WEEKLY Azathioprine 50 Mg Tablet 50 Mg PO Aspir 81 (Aspirin) 81 Mg Tablet.dr 1 Tab PO DAILY Atorvastatin Calcium 80 Mg Tablet 1 Tab PO DAILY Clopidogrel (Clopidogrel Bisulfate) 75 Mg Tablet 75 Mg PO DAILY Vitamin D2 (Ergocalciferol (Vitamin D2)) 50,000 Unit Capsule 50,000 Unit PO Hydroxychloroquine Sulfate 200 Mg Tablet 1 Tab PO BID Indication: arthritis Next dose: 05/01/14 pm Vitals/I & O Vital Sign - Last 24 Hours 03/21/18 03/21/18 03/21/18 03/21/18 11:00 11:03 11:30 12:00 Pulse 56 58 62 Resp 23 25 24 B/P (MAP) 102/52 (69) 98/54 (69) 112/60 (77) Pulse Ox 98 97 97 100 O2 Delivery Nasal Cannula Nasal Cannula Nasal Cannula Nasal Cannula O2 Flow Rate 2.0 2.0 2.0 2.0 03/21/18 03/21/18 03/21/18 03/21/18 12:30 13:03 13:33 13:57 Pulse 58 59 59 60 Resp 24 24 27 26 B/P (MAP) 92/57 (69) 113/64 (80) 93/53 (66) 105/56 (72) Pulse Ox 98 95 87 90 O2 Delivery Nasal Cannula Nasal Cannula Nasal Cannula Nasal Cannula O2 Flow Rate 2.0 2.0 2.0 2.0 03/21/18 03/21/18 03/21/18 03/21/18 14:03 14:45 14:55 16:00 Temp 98.3 98.3 Pulse 59 59 Resp 20 18 B/P (MAP) 100/58 (72) 114/64 (81) Pulse Ox 90 96 O2 Delivery Nasal Cannula Nasal Cannula Nasal Cannula Nasal Cannula O2 Flow Rate 2.0 2.0 2.0 2.0 03/21/18 03/21/18 03/21/18 03/21/18 16:00 16:14 17:00 18:00 Temp 98.5 98.5 Pulse 64 65 66 Resp 20 18 19 B/P (MAP) 121/66 (84) 110/63 (79) 103/61 (75) Pulse Ox 96 95 94 94 O2 Delivery Nasal Cannula Nasal Cannula Nasal Cannula Nasal Cannula O2 Flow Rate 2.0 2.0 2.0 2.0 03/21/18 03/21/18 03/21/18 03/21/18 19:00 20:00 20:00 20:00 Temp 98.7 98.7 Pulse 66 64 Resp 18 20 B/P (MAP) 92/59 (70) 96/62 (73) Pulse Ox 94 96 99 O2 Delivery Nasal Cannula Nasal Cannula Nasal Cannula Nasal Cannula O2 Flow Rate 2.0 2.0 2.0 2.0 03/21/18 03/21/18 03/21/18 03/21/18 20:01 20:32 21:00 22:03 Pulse 59 62 61 Resp 18 18 B/P (MAP) 92/57 89/61 (70) 89/52 (64) Pulse Ox 99 100 98 O2 Delivery Nasal Cannula Nasal Cannula Nasal Cannula O2 Flow Rate 2.0 2.0 2.0 03/21/18 03/22/18 03/22/18 03/22/18 23:00 00:00 00:00 01:00 Temp 98.6 98.6 Pulse 58 60 60 Resp 18 20 20 B/P (MAP) 85/51 (62) 92/54 (67) 95/50 (65) Pulse Ox 100 99 98 O2 Delivery Nasal Cannula Nasal Cannula Nasal Cannula Nasal Cannula O2 Flow Rate 2.0 2.0 2.0 2.0 03/22/18 03/22/18 03/22/18 03/22/18 02:00 03:00 04:00 04:00 Temp 98.2 98.2 Pulse 61 62 59 Resp 20 20 20 B/P (MAP) 92/52 (65) 89/50 (63) 97/60 (72) Pulse Ox 98 98 99 O2 Delivery Nasal Cannula Nasal Cannula Nasal Cannula Nasal Cannula O2 Flow Rate 2.0 2.0 2.0 2.0 03/22/18 03/22/18 03/22/18 03/22/18 05:00 06:00 07:00 07:26 Pulse 58 59 62 Resp 20 20 18 B/P (MAP) 103/62 (76) 112/65 (81) 105/63 (77) Pulse Ox 98 98 97 99 O2 Delivery Nasal Cannula Nasal Cannula Nasal Cannula Nasal Cannula O2 Flow Rate 2.0 2.0 2.0 2.0 03/22/18 03/22/18 03/22/18 03/22/18 08:00 08:00 09:00 10:00 Temp 98.4 98.4 Pulse 70 70 67 Resp 18 18 17 B/P (MAP) 116/64 (81) 110/60 (77) 108/69 (82) Pulse Ox 95 94 92 O2 Delivery Nasal Cannula Nasal Cannula Nasal Cannula Nasal Cannula O2 Flow Rate 2.0 2.0 2.0 2.0 Intake and Output 03/21/18 03/21/18 03/22/18 15:00 23:00 07:00 Intake Total 120 ml 830 ml 0 ml Output Total 1100 ml 1000 ml 380 ml Balance -980 ml -170 ml -380 ml ZOHREH DEMPSEY MD Mar 22, 2018 10:39
--- NOTE | 2018-03-22 13:14 | RAD ---
Thyroid ultrasound, 03/22/2018: HISTORY: Thyroid nodule noted on CT exam The right lobe of the gland measures 4.8 x 2.1 x 2.2 cm while the left lobe of the gland measures 3.0 x 1.3 x 0.9 cm. Several thyroid nodules are present. The largest nodule lies centrally in the right lobe of the gland. It measures 2.8 x 2.0 x 1.6 cm. It demonstrates cystic components as well as a solid component with multiple echogenic foci. Its margins are smooth. It is wider than tall. Color flow is evident within this solid components. There are several small smooth subcentimeter nodules in the left lobe. These are mildly heterogeneous and probably solid. The largest of these measures 5 mm. IMPRESSION: Multinodular thyroid gland with a dominant complex nodule in the right lobe which is considered to be moderately suspicious. Ultrasound-guided biopsy of this dominant nodule is suggested for further evaluation. Electronically signed by: Med Prince MD (03/22/2018 1:10 PM) [facility]
--- NOTE | 2018-03-22 13:58 | CARD ---
MR#: [id number] Date of Study: 03/22/2018 Ordering Physician: ZOHREH DEMPSEY, Referring Physician: ZOHREH DEMPSEY Tech: Susi Alcantar RDCS APPROVED REPORT EXAM: Two-dimensional and M-mode echocardiogram with Doppler and color Doppler. Other Information Quality : Good INDICATION Congestive Heart Failure 2D DIMENSIONS RVDd2.8 (2.9-3.5cm)Left Atrium(2D)3.7 (1.6-4.0cm) IVSd1.2 (0.7-1.1cm)Aortic Root(2D)3.5 (2.0-3.7cm) LVDd5.2 (3.9-5.9cm)LVOT Diameter2.0 (1.8-2.4cm) PWd1.0 (0.7-1.1cm)LVDs3.7 (2.5-4.0cm) FS (%) 27.7 %SV68.3 ml LVEF(%)53.4 (>50%) Aortic Valve AoV Peak Saurabh.134.4cm/sAoV VTI23.3cm AO Peak GR.7.2mmHgLVOT VTI 21.56cm AO Mean GR.4mmHgAVA (VTI)2.78cm2 Mitral Valve MV E Oiuzooxz37.3cm/sMV DECEL [id number] MV A Dajttjfh55.9cm/sE/A Ratio1.7 TDI Lateral E' P. V12.29cm/sMedial E' P. V3.67cm/s E/Lateral E'7.5E/Medial E'25.1 Tricuspid Valve TR P. Eryxzqrq452hs/sRAP [id number] TR Peak Gr.[id number] Pulmonary Vein S1 Thsybxkk86.2cm/sS2 Rrxkfrnn17.91cm/s D2 Hkwviwxi39.9cm/s LEFT VENTRICLE The left ventricle is normal size. There is normal left ventricular wall thickness. Left ventricle sy stolic function is low normal. The Ejection Fraction is 50-55%. There is normal LV segmental wall mot ion. Transmitral Doppler flow pattern is Grade II-pseudonormal filling dynamics. RIGHT VENTRICLE The right ventricle is normal size. The right ventricular systolic function is normal. ATRIA The left atrium size is normal. The right atrium size is normal. The interatrial septum is intact wit h no evidence for an atrial septal defect or patent foramen ovale as noted on 2-D or Doppler imaging. AORTIC VALVE The aortic valve is calcified but opens well. Doppler and Color Flow revealed no significant aortic r egurgitation. There is no significant aortic valvular stenosis. MITRAL VALVE The mitral valve is calcified but opens well. There is no evidence of mitral valve prolapse. There is no mitral valve stenosis. Doppler and Color Flow revealed no mitral valve regurgitation noted. TRICUSPID VALVE The tricuspid valve is normal in structure and function. Doppler and Color Flow revealed trace to mil d tricuspid regurgitation. There is moderate pulmonary hypertension. The PA pressure was estimated at 43 mmHg. There is no tricuspid valve stenosis. PULMONIC VALVE The pulmonic valve is not well visualized. Doppler and Color Flow revealed no pulmonic valvular regur gitation. There is no pulmonic valvular stenosis. GREAT VESSELS The aortic root is normal in size. The ascending aorta is normal in size. The IVC is normal in size a nd collapses >50% with inspiration. PERICARDIAL EFFUSION There is no evidence of significant pericardial effusion. Critical Notification Critical Value: No <Conclusion> The left ventricle is normal size. Left ventricle systolic function is low normal. The Ejection Fraction is 50-55%. There is no significant aortic valvular stenosis. Doppler and Color Flow revealed no significant aortic regurgitation. Doppler and Color Flow revealed no mitral valve regurgitation noted. Doppler and Color Flow revealed trace to mild tricuspid regurgitation. There is moderate pulmonary hypertension. The PA pressure was estimated at 43 mmHg. Signed by : Aaron Burgess MD Electronically Approved : 03/22/2018 13:57:15
--- NOTE | 2018-03-22 15:16 | PDOC2 ---
CONSULT Date of Consult Date of Consult DATE: 03/22/18 TIME: 15:08 Reason for Consult Reason for Consult: Heart failure Referring Physician Referring Physician: Dr. Desir Identification/Chief Complaint Chief Complaint Dyspnea on exertion Source Source: Chart review, Patient History of Present Illness Reason for Visit: The patient is a 67-year-old female with a history of COPD who presented to the emergency room with several days of increasing shortness of breath. She had been treated as an outpatient with pulmonary medications and Lasix but her symptoms progressed. In the emergency room the patient's chest x-ray showed mild interstitial opacification. Her initial troponin was normal. Her EKG showed a sinus rhythm with mild nonspecific ST-T wave changes. She was treated with diuresis and pulmonary medications overnight and is feeling significantly better today. She denies any chest pain. She does report a history of coronary disease and probable previous coronary stents. Past Medical History Cardiovascular: No pertinent hx, CAD, HTN, Hyperlipidemia, Other (probable coronary stents) Pulmonary: No pertinent hx, COPD CENTRAL NERVOUS SYSTEM: Other GI: GERD Heme/Onc: No pertinent hx, Other (SLE) Hepatobiliary: No pertinent hx Psych: No pertinent hx Musculoskeletal: low back pain, Osteoarthritis, Other Rheumatologic: Rheumatoid arthritis Infectious disease: No pertinent hx Renal/: No pertinent hx Endocrine: No pertinent hx Past Surgical History Past Surgical History: Tubal Ligation, Tonsillectomy, Other (back surgery and probable coronary stenting) Family History Family History: Coronary Artery Disease Social History No ALCOHOL: none Drugs: None Lives: with Family Domestic Violence: Neg Current Problem List Problem List Problems Medical Problems: (1) COPD (chronic obstructive pulmonary disease) Status: Acute (2) Cough with hemoptysis Status: Acute Current Medications Current Medications Current Medications Furosemide (Lasix) 40 mg 1X ONCE IVP Last administered on 03/21/18at 10:59; Start 03/21/18 at 10:45; Stop 03/21/18 at 10:46; Status DC Albuterol/ Ipratropium (Duoneb) 3 ml 1X ONCE NEB Last administered on at 11:01; Start 03/21/18 at 11:00; Stop 03/21/18 at 11:01; Status DC Furosemide (Lasix) 20 mg BID92 IVP Last administered on 03/22/18at 14:00; Start 03/21/18 at 14:00 Enoxaparin Sodium (Lovenox 40mg Syringe) 40 mg Q24H SQ Last administered on 06/28at 16:00; Start 03/21/18 at 16:00 Acetaminophen (Tylenol) 650 mg PRN Q6HRS PRN PO MILD PAIN / TEMP; Start at 16:00 Magnesium Hydroxide (Milk Of Magnesia) 2,400 mg PRN DAILY PRN PO CONSTIPATION; Start 03/21/18 at 16:00 Budesonide (Pulmicort) 0.5 mg RTBID NEB Last administered on 03/22/18 07:25; Start 03/21/18 at 20:00 Albuterol/ Ipratropium (Duoneb) 3 ml RTQID NEB Last administered on 03/22/18at 14:54; Start 03/21/18 at 16:00 Albuterol Sulfate (Ventolin Neb Soln) 2.5 mg PRN Q4HRS PRN NEB SHORTNESS OF BREATH; Start 03/21/18 at 16:15 Atorvastatin Calcium (Lipitor) 80 mg QHS PO Last administered on 03/21/18at 20: 32; Start 03/21/18 at 21:00 Clopidogrel Bisulfate (Plavix) 75 mg DAILYWBKFT PO Last administered on at 07:35; Start 03/22/18 at 08:00 Aspirin (Children'S Aspirin) 81 mg DAILYWBKFT PO Last administered on 07:35; Start 03/22/18 at 08:00 Famotidine (Pepcid) 20 mg BID PO Last administered on 03/22/18at 07:35; Start at 21:00 Hydroxychloroquine Sulfate (Plaquenil) 200 mg BID PO Last administered on 07:35; Start 03/21/18 at 21:00 Azathioprine (Imuran) 50 mg BID PO Last administered on 03/22/18 07:35; Start 03/21/18 at 21:00 Metoprolol Tartrate (Lopressor) 12.5 mg BID PO ; Start 03/21/18 at 21:00 Tramadol HCl (Ultram) 50 mg PRN Q6HRS PRN PO PAIN; Start 03/21/18 at 16:00 Vitamin D (Vitamin D3) 1,000 unit DAILY PO ; Start 03/22/18 at 09:00 Non-Formulary Medication 1 ea QSU@0800 PO Last administered on 03/22/18at 07:57 ; Start 03/22/18 at 08:00 Active Scripts Active Reported Tudorza Pressair (Aclidinium [place]) 400 Mcg Aer.pow.ba 400 Mcg IH Tramadol Hcl 50 Mg Tablet 50 Mg PO Q4HRS PRN Famotidine 20 Mg Tablet 20 Mg PO HS Proair Respiclick (Albuterol Sulfate) 90 Mcg Aer.pow.ba 1 Puff IH PRN Q6HRS PRN Metoprolol Tartrate 25 Mg Tablet 0.5 Tab PO BID Alendronate Sodium 70 Mg Tablet 70 Mg PO WEEKLY Azathioprine 50 Mg Tablet 50 Mg PO Aspir 81 (Aspirin) 81 Mg Tablet.dr 1 Tab PO DAILY Atorvastatin Calcium 80 Mg Tablet 1 Tab PO DAILY Clopidogrel (Clopidogrel Bisulfate) 75 Mg Tablet 75 Mg PO DAILY Vitamin D2 (Ergocalciferol (Vitamin D2)) 50,000 Unit Capsule 50,000 Unit PO Hydroxychloroquine Sulfate 200 Mg Tablet 1 Tab PO BID Indication: arthritis Next dose: 05/01/14 pm Allergies Allergies: Coded Allergies: NSAIDS (Non-Steroidal Anti-Inflamma (Verified Allergy, Intermediate, ) ROS General: YES: Fatigue Respiratory: YES: Shortness of breath, SOB with excertion Physical Exam General: mild distress HEENT: Atraumatic Lungs: Other (mildly decreased breath sounds) Heart: Regular rate Abdomen: Normal bowel sounds Vitals VITALS Vital Signs Date Time Temp Pulse Resp B/P (MAP) Pulse Ox O2 Delivery O2 Flow Rate FiO2 03/22/18 14:55 Room Air 03/22/18 12:00 98.5 68 18 108/60 (76) 92 2.0 98.5 Labs Labs Laboratory Tests Test 03/21/18 10:53 03/21/18 11:55 03/22/18 05:00 White Blood Count 3.7 x10^3/uL (4.0-11.0) 2.9 x10^3/uL (4.0-11.0) Red Blood Count 3.37 x10^6/uL (3.50-5.40) 3.37 x10^6/uL (3.50-5.40) Hemoglobin 10.6 g/dL (12.0-15.5) 10.6 g/dL (12.0-15.5) Hematocrit 31.9 % (36.0-47.0) 31.6 % (36.0-47.0) Mean Corpuscular Volume 95 fL (79-100) 94 fL (79-100) Mean Corpuscular Hemoglobin 31 pg (25-35) 31 pg (25-35) Mean Corpuscular Hemoglobin Concent 33 g/dL (31-37) 34 g/dL (31-37) Red Cell Distribution Width 21.2 % (11.5-14.5) 21.0 % (11.5-14.5) Platelet Count 192 x10^3/uL (140-400) 170 x10^3/uL (140-400) Neutrophils (%) (Auto) 84 % (31-73) 81 % (31-73) Lymphocytes (%) (Auto) 12 % (24-48) 15 % (24-48) Monocytes (%) (Auto) 3 % (0-9) 2 % (0-9) Eosinophils (%) (Auto) 2 % (0-3) 2 % (0-3) Basophils (%) (Auto) 0 % (0-3) 0 % (0-3) Neutrophils # (Auto) 3.1 x10^3uL (1.8-7.7) 2.4 x10^3uL (1.8-7.7) Lymphocytes # (Auto) 0.4 x10^3/uL (1.0-4.8) 0.4 x10^3/uL (1.0-4.8) Monocytes # (Auto) 0.1 x10^3/uL (0.0-1.1) 0.1 x10^3/uL (0.0-1.1) Eosinophils # (Auto) 0.1 x10^3/uL (0.0-0.7) 0.1 x10^3/uL (0.0-0.7) Basophils # (Auto) 0.0 x10^3/uL (0.0-0.2) 0.0 x10^3/uL (0.0-0.2) Toxic Granulation Slight Platelet Estimate Adequate (ADEQUATE) Polychromasia Slight Anisocytosis Mod Ovalocytes Few Schistocytes Few Sodium Level 136 mmol/L (136-145) 137 mmol/L (136-145) Potassium Level 4.2 mmol/L (3.5-5.1) 4.1 mmol/L (3.5-5.1) Chloride Level 102 mmol/L (98-107) 101 mmol/L (98-107) Carbon Dioxide Level 29 mmol/L (21-32) 32 mmol/L (21-32) Anion Gap 5 (6-14) 4 (6-14) Blood Urea Nitrogen 15 mg/dL (7-20) 19 mg/dL (7-20) Creatinine 0.9 mg/dL (0.6-1.0) 0.9 mg/dL (0.6-1.0) Estimated GFR (Cockcroft-Gault) 62.6 62.6 BUN/Creatinine Ratio 17 (6-20) 21 (6-20) Glucose Level 116 mg/dL (70-99) 91 mg/dL (70-99) Calcium Level 8.9 mg/dL (8.5-10.1) 8.6 mg/dL (8.5-10.1) Total Bilirubin 1.5 mg/dL (0.2-1.0) 1.3 mg/dL (0.2-1.0) Aspartate Amino Transf (AST/SGOT) 78 U/L (15-37) 92 U/L (15-37) Alanine Aminotransferase (ALT/SGPT) 80 U/L (14-59) 93 U/L (14-59) Alkaline Phosphatase 89 U/L (46-116) 87 U/L (46-116) Troponin I Quantitative < 0.017 ng/mL (0.000-0.055) CP-Ezy-Y-Type Natriuretic Peptide 3646 pg/mL (0-124) Total Protein 6.6 g/dL (6.4-8.2) 6.2 g/dL (6.4-8.2) Albumin 2.3 g/dL (3.4-5.0) 2.2 g/dL (3.4-5.0) Albumin/Globulin Ratio 0.5 (1.0-1.7) 0.6 (1.0-1.7) O2 Saturation 95 % (92-99) Arterial Blood pH 7.45 (7.35-7.45) Arterial Blood pCO2 at Patient Temp 43 mmHg (35-46) Arterial Blood pO2 at Patient Temp 74 mmHg (65-108) Arterial Blood HCO3 29 mmol/L (21-28) Arterial Blood Base Excess 4 mmol/L (-3-3) FiO2 28% Magnesium Level 1.8 mg/dL (1.8-2.4) Iron Level 34 ug/dL (50-170) Total Iron Binding Capacity 186 ug/dL (250-450) Iron Saturation 18 % (15-34) Ferritin 240 ng/mL (8-252) Triglycerides Level 34 mg/dL (0-150) Cholesterol Level 66 mg/dL (0-200) LDL Cholesterol, Calculated 27 mg/dL (0-100) VLDL Cholesterol, Calculated 7 mg/dL (0-40) Non-HDL Cholesterol Calculated 34 mg/dL (0-129) HDL Cholesterol 32 mg/dL (40-60) Cholesterol/HDL Ratio 2.1 Laboratory Tests Test 03/22/18 05:00 White Blood Count 2.9 x10^3/uL (4.0-11.0) Red Blood Count 3.37 x10^6/uL (3.50-5.40) Hemoglobin 10.6 g/dL (12.0-15.5) Hematocrit 31.6 % (36.0-47.0) Mean Corpuscular Volume 94 fL (79-100) Mean Corpuscular Hemoglobin 31 pg (25-35) Mean Corpuscular Hemoglobin Concent 34 g/dL (31-37) Red Cell Distribution Width 21.0 % (11.5-14.5) Platelet Count 170 x10^3/uL (140-400) Neutrophils (%) (Auto) 81 % (31-73) Lymphocytes (%) (Auto) 15 % (24-48) Monocytes (%) (Auto) 2 % (0-9) Eosinophils (%) (Auto) 2 % (0-3) Basophils (%) (Auto) 0 % (0-3) Neutrophils # (Auto) 2.4 x10^3uL (1.8-7.7) Lymphocytes # (Auto) 0.4 x10^3/uL (1.0-4.8) Monocytes # (Auto) 0.1 x10^3/uL (0.0-1.1) Eosinophils # (Auto) 0.1 x10^3/uL (0.0-0.7) Basophils # (Auto) 0.0 x10^3/uL (0.0-0.2) Sodium Level 137 mmol/L (136-145) Potassium Level 4.1 mmol/L (3.5-5.1) Chloride Level 101 mmol/L (98-107) Carbon Dioxide Level 32 mmol/L (21-32) Anion Gap 4 (6-14) Blood Urea Nitrogen 19 mg/dL (7-20) Creatinine 0.9 mg/dL (0.6-1.0) Estimated GFR (Cockcroft-Gault) 62.6 BUN/Creatinine Ratio 21 (6-20) Glucose Level 91 mg/dL (70-99) Calcium Level 8.6 mg/dL (8.5-10.1) Magnesium Level 1.8 mg/dL (1.8-2.4) Iron Level 34 ug/dL (50-170) Total Iron Binding Capacity 186 ug/dL (250-450) Iron Saturation 18 % (15-34) Ferritin 240 ng/mL (8-252) Total Bilirubin 1.3 mg/dL (0.2-1.0) Aspartate Amino Transf (AST/SGOT) 92 U/L (15-37) Alanine Aminotransferase (ALT/SGPT) 93 U/L (14-59) Alkaline Phosphatase 87 U/L (46-116) Total Protein 6.2 g/dL (6.4-8.2) Albumin 2.2 g/dL (3.4-5.0) Albumin/Globulin Ratio 0.6 (1.0-1.7) Triglycerides Level 34 mg/dL (0-150) Cholesterol Level 66 mg/dL (0-200) LDL Cholesterol, Calculated 27 mg/dL (0-100) VLDL Cholesterol, Calculated 7 mg/dL (0-40) Non-HDL Cholesterol Calculated 34 mg/dL (0-129) HDL Cholesterol 32 mg/dL (40-60) Cholesterol/HDL Ratio 2.1 Images Images Chest x-ray shows mild interstitial opacities. Lower extremity ultrasound shows no DVT Assessment/Plan Assessment/Plan 1. Probable heart failure. Patient is feeling better post diuresis as well as with pulmonary medications. Troponin is normal. EKG shows no acute ischemia. We' ll continue present medications including mild diuresis. We'll check an echocardiogram today. 2. Exacerbation of COPD. Also improved. We'll continue present medications. Followed by the pulmonary service. 3. Reported history of coronary artery disease and possible stenting. No chest pain. No acute EKG changes. We'll continue present treatment. Will check old records. 4. Hypertension. Under better control. Continue present treatments. 5. History of SLE. 6. History of possible hyperlipidemia. We'll check lab testing. Thank you for allowing us to participate in the care of your patient. ALLEN CLEMENTE MD Mar 22, 2018 15:16
[2018-03-22] MEDS: ENOXAPARIN 40 MG/0.4 ML SYRINGE. SQ SCH (17:22)
[2018-03-22] MEDS: ATORVASTATIN CALCIUM 40 MG TABLET. PO SCH (20:43)
[2018-03-22] MEDS: CHOLECALCIFEROL (VITAMIN D3) 1,000 UNIT TABLET PO SCH (20:44)
[2018-03-23 03:19] VITALS: BP 108/59
[2018-03-23 04:47] LABS: BASO % 0 % (0-3); EOS # 0.1 x10^3/uL (0.0-0.7); EOS % 2 % (0-3); HEMATOCRIT 31.3 % (36.0-47.0); HEMOGLOBIN 10.4 g/dL (12.0-15.5); LYMPH # 0.4 x10^3/uL (1.0-4.8); LYMPH % 13 % (24-48); MEAN CORPUSCULAR HEMOGLOBIN 31 pg (25-35); MEAN CORPUSCULAR HGB CONC 33 g/dL (31-37); MEAN CORPUSCULAR VOLUME 94 fL (79-100); MONO # 0.1 x10^3/uL (0.0-1.1); MONO % 2 % (0-9); NEUT # 2.6 x10^3uL (1.8-7.7); NEUT % 83 % (31-73); PLATELET COUNT 189 x10^3/uL (140-400); RED BLOOD COUNT 3.33 x10^6/uL (3.50-5.40); RED CELL DISTRIBUTION WIDTH 20.7 % (11.5-14.5); WHITE BLOOD COUNT 3.2 x10^3/uL (4.0-11.0)
[2018-03-23 05:28] LABS: CALCIUM 8.4 mg/dL (8.5-10.1); GFR 55.5; MAGNESIUM 1.8 mg/dL (1.8-2.4); POTASSIUM 4.2 mmol/L (3.5-5.1)
[2018-03-23] MEDS: BUDESONIDE 0.5 MG/2 ML NEBU. NEB SCH ×2 (07:10→19:23)
[2018-03-23] MEDS: IPRATRPIUM/ALBUTEROL 0.5/2.5MG 3 ML NEBU. NEB SCH ×4 (07:10→19:23)
[2018-03-23 08:07] VITALS: BP 112/65
--- NOTE | 2018-03-23 08:24 | PDOC ---
PROGRESS NOTES Subjective Subjective feels better. not short of breath at rest. no cough. echo reviewed. LVEF 50 to 55%. moderate pulmonary hypertension. lab reviewed. thyroid ultrasound with multinodular goiter with large complex nodule on right and will have that biopsied and patient concurs. Objective Objective Vital Signs Date Time Temp Pulse Resp B/P (MAP) Pulse Ox O2 Delivery O2 Flow Rate FiO2 03/23/18 08:07 97.9 65 16 112/65 (81) 93 Room Air 97.9 03/23/18 07:10 2.0 Intake and Output 03/23/18 07:00 Intake Total 1130 ml Output Total 1525 ml Balance -395 ml Intake Oral 1130 ml Output Urine Total 1525 ml Physical Exam Abdomen: Soft Heart: Regular rate, Normal S1, Normal S2 Extremities: No edema General: Alert HEENT: Atraumatic Lungs: Other (decreased breath sounds. crackles in bases) Neuro: Normal speech Psych/Mental Status: Mood NL Skin: No rashes Assessment Assessment Problems. Acute diastolic congestive heart failure 2. Chronic obstructive pulmonary disease. 3. Acute on chronic hypoxic respiratory failure. 4. Coronary artery disease. 5. Hyperlipidemia. 6. Anemia of chronic disease. 7. Systemic lupus erythematosus. 8. Gastroesophageal reflux disease. 9. Moderate protein calorie malnutrition. Leukopenia multinodular goiter with complex suspicious right nodule Medical Problems: (1) COPD (chronic obstructive pulmonary disease) Status: Acute (2) Cough with hemoptysis Status: Acute Plan Plan of Care change lasix to 40 mg iv daily cxr today aspiration biopsy of right thyroid nodule continue nebulizer rx 6 [address] Comment Review of Relevant I have reviewed the following items mata (where applicable) has been applied. Labs Laboratory Tests Test 03/21/18 10:53 03/21/18 11:55 03/21/18 14:54 03/22/18 05:00 White Blood Count 3.7 x10^3/uL (4.0-11.0) 2.9 x10^3/uL (4.0-11.0) Red Blood Count 3.37 x10^6/uL (3.50-5.40) 3.37 x10^6/uL (3.50-5.40) Hemoglobin 10.6 g/dL (12.0-15.5) 10.6 g/dL (12.0-15.5) Hematocrit 31.9 % (36.0-47.0) 31.6 % (36.0-47.0) Mean Corpuscular Volume 95 fL (79-100) 94 fL (79-100) Mean Corpuscular Hemoglobin 31 pg (25-35) 31 pg (25-35) Mean Corpuscular Hemoglobin Concent 33 g/dL (31-37) 34 g/dL (31-37) Red Cell Distribution Width 21.2 % (11.5-14.5) 21.0 % (11.5-14.5) Platelet Count 192 x10^3/uL (140-400) 170 x10^3/uL (140-400) Neutrophils (%) (Auto) 84 % (31-73) 81 % (31-73) Lymphocytes (%) (Auto) 12 % (24-48) 15 % (24-48) Monocytes (%) (Auto) 3 % (0-9) 2 % (0-9) Eosinophils (%) (Auto) 2 % (0-3) 2 % (0-3) Basophils (%) (Auto) 0 % (0-3) 0 % (0-3) Neutrophils # (Auto) 3.1 x10^3uL (1.8-7.7) 2.4 x10^3uL (1.8-7.7) Lymphocytes # (Auto) 0.4 x10^3/uL (1.0-4.8) 0.4 x10^3/uL (1.0-4.8) Monocytes # (Auto) 0.1 x10^3/uL (0.0-1.1) 0.1 x10^3/uL (0.0-1.1) Eosinophils # (Auto) 0.1 x10^3/uL (0.0-0.7) 0.1 x10^3/uL (0.0-0.7) Basophils # (Auto) 0.0 x10^3/uL (0.0-0.2) 0.0 x10^3/uL (0.0-0.2) Toxic Granulation Slight Platelet Estimate Adequate (ADEQUATE) Polychromasia Slight Anisocytosis Mod Ovalocytes Few Schistocytes Few Sodium Level 136 mmol/L (136-145) 137 mmol/L (136-145) Potassium Level 4.2 mmol/L (3.5-5.1) 4.1 mmol/L (3.5-5.1) Chloride Level 102 mmol/L (98-107) 101 mmol/L (98-107) Carbon Dioxide Level 29 mmol/L (21-32) 32 mmol/L (21-32) Anion Gap 5 (6-14) 4 (6-14) Blood Urea Nitrogen 15 mg/dL (7-20) 19 mg/dL (7-20) Creatinine 0.9 mg/dL (0.6-1.0) 0.9 mg/dL (0.6-1.0) Estimated GFR (Cockcroft-Gault) 62.6 62.6 BUN/Creatinine Ratio 17 (6-20) 21 (6-20) Glucose Level 116 mg/dL (70-99) 91 mg/dL (70-99) Calcium Level 8.9 mg/dL (8.5-10.1) 8.6 mg/dL (8.5-10.1) Total Bilirubin 1.5 mg/dL (0.2-1.0) 1.3 mg/dL (0.2-1.0) Aspartate Amino Transf (AST/SGOT) 78 U/L (15-37) 92 U/L (15-37) Alanine Aminotransferase (ALT/SGPT) 80 U/L (14-59) 93 U/L (14-59) Alkaline Phosphatase 89 U/L (46-116) 87 U/L (46-116) Troponin I Quantitative < 0.017 ng/mL (0.000-0.055) TC-Ezp-B-Type Natriuretic Peptide 3646 pg/mL (0-124) Total Protein 6.6 g/dL (6.4-8.2) 6.2 g/dL (6.4-8.2) Albumin 2.3 g/dL (3.4-5.0) 2.2 g/dL (3.4-5.0) Albumin/Globulin Ratio 0.5 (1.0-1.7) 0.6 (1.0-1.7) O2 Saturation 95 % (92-99) Arterial Blood pH 7.45 (7.35-7.45) Arterial Blood pCO2 at Patient Temp 43 mmHg (35-46) Arterial Blood pO2 at Patient Temp 74 mmHg (65-108) Arterial Blood HCO3 29 mmol/L (21-28) Arterial Blood Base Excess 4 mmol/L (-3-3) FiO2 28% Nasal Screen MRSA (PCR) Negative (Negative) Magnesium Level 1.8 mg/dL (1.8-2.4) Iron Level 34 ug/dL (50-170) Total Iron Binding Capacity 186 ug/dL (250-450) Iron Saturation 18 % (15-34) Ferritin 240 ng/mL (8-252) Triglycerides Level 34 mg/dL (0-150) Cholesterol Level 66 mg/dL (0-200) LDL Cholesterol, Calculated 27 mg/dL (0-100) VLDL Cholesterol, Calculated 7 mg/dL (0-40) Non-HDL Cholesterol Calculated 34 mg/dL (0-129) HDL Cholesterol 32 mg/dL (40-60) Cholesterol/HDL Ratio 2.1 Test 03/23/18 04:15 White Blood Count 3.2 x10^3/uL (4.0-11.0) Red Blood Count 3.33 x10^6/uL (3.50-5.40) Hemoglobin 10.4 g/dL (12.0-15.5) Hematocrit 31.3 % (36.0-47.0) Mean Corpuscular Volume 94 fL (79-100) Mean Corpuscular Hemoglobin 31 pg (25-35) Mean Corpuscular Hemoglobin Concent 33 g/dL (31-37) Red Cell Distribution Width 20.7 % (11.5-14.5) Platelet Count 189 x10^3/uL (140-400) Neutrophils (%) (Auto) 83 % (31-73) Lymphocytes (%) (Auto) 13 % (24-48) Monocytes (%) (Auto) 2 % (0-9) Eosinophils (%) (Auto) 2 % (0-3) Basophils (%) (Auto) 0 % (0-3) Neutrophils # (Auto) 2.6 x10^3uL (1.8-7.7) Lymphocytes # (Auto) 0.4 x10^3/uL (1.0-4.8) Monocytes # (Auto) 0.1 x10^3/uL (0.0-1.1) Eosinophils # (Auto) 0.1 x10^3/uL (0.0-0.7) Basophils # (Auto) 0.0 x10^3/uL (0.0-0.2) Sodium Level 136 mmol/L (136-145) Potassium Level 4.2 mmol/L (3.5-5.1) Chloride Level 101 mmol/L (98-107) Carbon Dioxide Level 32 mmol/L (21-32) Anion Gap 3 (6-14) Blood Urea Nitrogen 18 mg/dL (7-20) Creatinine 1.0 mg/dL (0.6-1.0) Estimated GFR (Cockcroft-Gault) 55.5 Glucose Level 112 mg/dL (70-99) Calcium Level 8.4 mg/dL (8.5-10.1) Magnesium Level 1.8 mg/dL (1.8-2.4) Laboratory Tests Test 03/23/18 04:15 White Blood Count 3.2 x10^3/uL (4.0-11.0) Red Blood Count 3.33 x10^6/uL (3.50-5.40) Hemoglobin 10.4 g/dL (12.0-15.5) Hematocrit 31.3 % (36.0-47.0) Mean Corpuscular Volume 94 fL (79-100) Mean Corpuscular Hemoglobin 31 pg (25-35) Mean Corpuscular Hemoglobin Concent 33 g/dL (31-37) Red Cell Distribution Width 20.7 % (11.5-14.5) Platelet Count 189 x10^3/uL (140-400) Neutrophils (%) (Auto) 83 % (31-73) Lymphocytes (%) (Auto) 13 % (24-48) Monocytes (%) (Auto) 2 % (0-9) Eosinophils (%) (Auto) 2 % (0-3) Basophils (%) (Auto) 0 % (0-3) Neutrophils # (Auto) 2.6 x10^3uL (1.8-7.7) Lymphocytes # (Auto) 0.4 x10^3/uL (1.0-4.8) Monocytes # (Auto) 0.1 x10^3/uL (0.0-1.1) Eosinophils # (Auto) 0.1 x10^3/uL (0.0-0.7) Basophils # (Auto) 0.0 x10^3/uL (0.0-0.2) Sodium Level 136 mmol/L (136-145) Potassium Level 4.2 mmol/L (3.5-5.1) Chloride Level 101 mmol/L (98-107) Carbon Dioxide Level 32 mmol/L (21-32) Anion Gap 3 (6-14) Blood Urea Nitrogen 18 mg/dL (7-20) Creatinine 1.0 mg/dL (0.6-1.0) Estimated GFR (Cockcroft-Gault) 55.5 Glucose Level 112 mg/dL (70-99) Calcium Level 8.4 mg/dL (8.5-10.1) Magnesium Level 1.8 mg/dL (1.8-2.4) Medications Current Medications Furosemide (Lasix) 40 mg 1X ONCE IVP Last administered on 03/21/18at 10:59; Start 03/21/18 at 10:45; Stop 03/21/18 at 10:46; Status DC Albuterol/ Ipratropium (Duoneb) 3 ml 1X ONCE NEB Last administered on at 11:01; Start 03/21/18 at 11:00; Stop 03/21/18 at 11:01; Status DC Furosemide (Lasix) 20 mg BID92 IVP Last administered on 03/22/18at 14:00; Start 03/21/18 at 14:00 Enoxaparin Sodium (Lovenox 40mg Syringe) 40 mg Q24H SQ Last administered on 07/28at 17:22; Start 03/21/18 at 16:00 Acetaminophen (Tylenol) 650 mg PRN Q6HRS PRN PO MILD PAIN / TEMP; Start at 16:00 Magnesium Hydroxide (Milk Of Magnesia) 2,400 mg PRN DAILY PRN PO CONSTIPATION; Start 03/21/18 at 16:00 Budesonide (Pulmicort) 0.5 mg RTBID NEB Last administered on 03/23/18at 07:10; Start 03/21/18 at 20:00 Albuterol/ Ipratropium (Duoneb) 3 ml RTQID NEB Last administered on 03/23/18at 07:10; Start 03/21/18 at 16:00 Albuterol Sulfate (Ventolin Neb Soln) 2.5 mg PRN Q4HRS PRN NEB SHORTNESS OF BREATH; Start 03/21/18 at 16:15 Atorvastatin Calcium (Lipitor) 80 mg QHS PO Last administered on 03/22/18at 20: 43; Start 03/21/18 at 21:00 Clopidogrel Bisulfate (Plavix) 75 mg DAILYWBKFT PO Last administered on 07:35; Start 03/22/18 at 08:00 Aspirin (Children'S Aspirin) 81 mg DAILYWBKFT PO Last administered on 07:35; Start 03/22/18 at 08:00 Famotidine (Pepcid) 20 mg BID PO Last administered on 03/22/18 20:53; Start at 21:00 Hydroxychloroquine Sulfate (Plaquenil) 200 mg BID PO Last administered on 20:44; Start 03/21/18 at 21:00 Azathioprine (Imuran) 50 mg BID PO Last administered on 03/22/18at 21:08; Start 03/21/18 at 21:00 Metoprolol Tartrate (Lopressor) 12.5 mg BID PO Last administered on 03/22/18 20:44; Start 03/21/18 at 21:00 Tramadol HCl (Ultram) 50 mg PRN Q6HRS PRN PO PAIN; Start 03/21/18 at 16:00 Vitamin D (Vitamin D3) 1,000 unit DAILY PO Last administered on 03/22/18 20:44 ; Start 03/22/18 at 09:00 Non-Formulary Medication 1 ea QSU@0800 PO Last administered on 03/22/18at 07:57 ; Start 03/22/18 at 08:00 Active Scripts Active Reported Tudorza Pressair (Aclidinium [place]) 400 Mcg Aer.pow.ba 400 Mcg IH Tramadol Hcl 50 Mg Tablet 50 Mg PO Q4HRS PRN Famotidine 20 Mg Tablet 20 Mg PO HS Proair Respiclick (Albuterol Sulfate) 90 Mcg Aer.pow.ba 1 Puff IH PRN Q6HRS PRN Metoprolol Tartrate 25 Mg Tablet 0.5 Tab PO BID Alendronate Sodium 70 Mg Tablet 70 Mg PO WEEKLY Azathioprine 50 Mg Tablet 50 Mg PO Aspir 81 (Aspirin) 81 Mg Tablet.dr 1 Tab PO DAILY Atorvastatin Calcium 80 Mg Tablet 1 Tab PO DAILY Clopidogrel (Clopidogrel Bisulfate) 75 Mg Tablet 75 Mg PO DAILY Vitamin D2 (Ergocalciferol (Vitamin D2)) 50,000 Unit Capsule 50,000 Unit PO Hydroxychloroquine Sulfate 200 Mg Tablet 1 Tab PO BID Indication: arthritis Next dose: 05/01/14 pm Vitals/I & O Vital Sign - Last 24 Hours 03/22/18 03/22/18 03/22/18 03/22/18 09:00 10:00 11:25 12:00 Temp 98.5 98.5 Pulse 70 67 68 Resp 18 17 18 B/P (MAP) 110/60 (77) 108/69 (82) 108/60 (76) Pulse Ox 94 92 95 92 O2 Delivery Nasal Cannula Nasal Cannula Nasal Cannula Nasal Cannula O2 Flow Rate 2.0 2.0 2.0 2.0 03/22/18 03/22/18 03/22/18 03/22/18 14:55 15:21 19:20 20:00 Temp 98.2 98.5 98.2 98.5 Pulse 68 74 Resp 18 16 B/P (MAP) 135/79 (97) 96/52 (67) Pulse Ox 92 92 O2 Delivery Room Air Room Air Room Air Nasal Cannula O2 Flow Rate 2.0 03/22/18 03/22/18 03/22/18 03/23/18 20:42 20:44 22:40 03:19 Temp 98.1 97.6 98.1 97.6 Pulse 79 79 63 59 Resp 16 16 B/P (MAP) 109/53 (71) 109/53 101/57 (72) 108/59 (75) Pulse Ox 100 99 O2 Delivery Nasal Cannula Nasal Cannula O2 Flow Rate 2.0 2.0 03/23/18 03/23/18 07:10 08:07 Temp 97.9 97.9 Pulse 65 Resp 16 B/P (MAP) 112/65 (81) Pulse Ox 94 93 O2 Delivery Nasal Cannula Room Air O2 Flow Rate 2.0 Intake and Output 03/22/18 03/22/18 03/23/18 15:00 23:00 07:00 Intake Total 630 ml 200 ml 300 ml Output Total 775 ml 350 ml 400 ml Balance -145 ml -150 ml -100 ml ZOHREH DEMPSEY MD Mar 23, 2018 08:24
[2018-03-23] MEDS ORDERED: FUROSEMIDE 40 MG/4 ML VIAL. IVP SCH (09:00)
[2018-03-23] MEDS: CLOPIDOGREL BISULFATE 75 MG TABLET PO SCH (09:21)
[2018-03-23] MEDS: CHOLECALCIFEROL (VITAMIN D3) 1,000 UNIT TABLET PO SCH (09:21)
[2018-03-23] MEDS: ASPIRIN CHEWABLE 81 MG TABLET. PO SCH (09:21)
[2018-03-23] MEDS: FAMOTIDINE 20 MG TABLET. PO SCH ×2 (09:21→21:18)
[2018-03-23] MEDS: METOPROLOL TART IMMED RELEASE 25 MG TABLET. PO SCH ×2 (09:21→21:19)
--- NOTE | 2018-03-23 09:21 | RAD ---
EXAM:CHEST PA AND LATERAL DATE: 03/23/2018 5:00 AM CLINICAL INDICATION: CHF COMPARISON: 03/21/2018, 05/03/2017 FINDINGS: The heart is not enlarged. Atherosclerotic calcifications of the tortuous aorta are seen. Mediastinal and hilar contours are normal. Mild interstitial prominence bilaterally, nonspecific but may be seen with early interstitial edema. No definite alveolar airspace opacities are seen. No pleural effusion or pneumothorax. IMPRESSION: Nonspecific interstitial opacity bilaterally, mildly improved from 03/21/2018, possibly improving interstitial pulmonary edema. Electronically signed by: Mukesh Palacios MD (03/23/2018 9:17 AM) [facility]
[2018-03-23] MEDS: HYDROXYCHLOROQUINE 200 MG TABLET PO SCH ×2 (09:22→21:18)
[2018-03-23] MEDS: azaTHIOprine 50 MG TABLET PO SCH ×2 (10:44→21:18)
[2018-03-23 11:13] VITALS: BP 115/71
--- NOTE | 2018-03-23 12:06 | PDOC ---
PULMONARY PROGRESS NOTES Subjective feels better Vitals Vital Signs Date Time Temp Pulse Resp B/P (MAP) Pulse Ox O2 Delivery O2 Flow Rate FiO2 03/23/18 11:13 98.0 75 16 115/71 (86) 95 Room Air 98.0 03/23/18 08:00 2.0 General: Alert, No acute distress Lungs: Clear Cardiovascular: S1, S2 Abdomen: Soft, Non-tender Neuro Exam: Alert Extremities: No Edema Labs Laboratory Tests Test 03/21/18 14:54 03/22/18 05:00 03/23/18 04:15 Nasal Screen MRSA (PCR) Negative (Negative) White Blood Count 2.9 x10^3/uL (4.0-11.0) 3.2 x10^3/uL (4.0-11.0) Red Blood Count 3.37 x10^6/uL (3.50-5.40) 3.33 x10^6/uL (3.50-5.40) Hemoglobin 10.6 g/dL (12.0-15.5) 10.4 g/dL (12.0-15.5) Hematocrit 31.6 % (36.0-47.0) 31.3 % (36.0-47.0) Mean Corpuscular Volume 94 fL (79-100) 94 fL (79-100) Mean Corpuscular Hemoglobin 31 pg (25-35) 31 pg (25-35) Mean Corpuscular Hemoglobin Concent 34 g/dL (31-37) 33 g/dL (31-37) Red Cell Distribution Width 21.0 % (11.5-14.5) 20.7 % (11.5-14.5) Platelet Count 170 x10^3/uL (140-400) 189 x10^3/uL (140-400) Neutrophils (%) (Auto) 81 % (31-73) 83 % (31-73) Lymphocytes (%) (Auto) 15 % (24-48) 13 % (24-48) Monocytes (%) (Auto) 2 % (0-9) 2 % (0-9) Eosinophils (%) (Auto) 2 % (0-3) 2 % (0-3) Basophils (%) (Auto) 0 % (0-3) 0 % (0-3) Neutrophils # (Auto) 2.4 x10^3uL (1.8-7.7) 2.6 x10^3uL (1.8-7.7) Lymphocytes # (Auto) 0.4 x10^3/uL (1.0-4.8) 0.4 x10^3/uL (1.0-4.8) Monocytes # (Auto) 0.1 x10^3/uL (0.0-1.1) 0.1 x10^3/uL (0.0-1.1) Eosinophils # (Auto) 0.1 x10^3/uL (0.0-0.7) 0.1 x10^3/uL (0.0-0.7) Basophils # (Auto) 0.0 x10^3/uL (0.0-0.2) 0.0 x10^3/uL (0.0-0.2) Sodium Level 137 mmol/L (136-145) 136 mmol/L (136-145) Potassium Level 4.1 mmol/L (3.5-5.1) 4.2 mmol/L (3.5-5.1) Chloride Level 101 mmol/L (98-107) 101 mmol/L (98-107) Carbon Dioxide Level 32 mmol/L (21-32) 32 mmol/L (21-32) Anion Gap 4 (6-14) 3 (6-14) Blood Urea Nitrogen 19 mg/dL (7-20) 18 mg/dL (7-20) Creatinine 0.9 mg/dL (0.6-1.0) 1.0 mg/dL (0.6-1.0) Estimated GFR (Cockcroft-Gault) 62.6 55.5 BUN/Creatinine Ratio 21 (6-20) Glucose Level 91 mg/dL (70-99) 112 mg/dL (70-99) Calcium Level 8.6 mg/dL (8.5-10.1) 8.4 mg/dL (8.5-10.1) Magnesium Level 1.8 mg/dL (1.8-2.4) 1.8 mg/dL (1.8-2.4) Iron Level 34 ug/dL (50-170) Total Iron Binding Capacity 186 ug/dL (250-450) Iron Saturation 18 % (15-34) Ferritin 240 ng/mL (8-252) Total Bilirubin 1.3 mg/dL (0.2-1.0) Aspartate Amino Transf (AST/SGOT) 92 U/L (15-37) Alanine Aminotransferase (ALT/SGPT) 93 U/L (14-59) Alkaline Phosphatase 87 U/L (46-116) Total Protein 6.2 g/dL (6.4-8.2) Albumin 2.2 g/dL (3.4-5.0) Albumin/Globulin Ratio 0.6 (1.0-1.7) Triglycerides Level 34 mg/dL (0-150) Cholesterol Level 66 mg/dL (0-200) LDL Cholesterol, Calculated 27 mg/dL (0-100) VLDL Cholesterol, Calculated 7 mg/dL (0-40) Non-HDL Cholesterol Calculated 34 mg/dL (0-129) HDL Cholesterol 32 mg/dL (40-60) Cholesterol/HDL Ratio 2.1 Vitamin B12 Level 587 pg/mL (247-911) Laboratory Tests Test 03/23/18 04:15 White Blood Count 3.2 x10^3/uL (4.0-11.0) Red Blood Count 3.33 x10^6/uL (3.50-5.40) Hemoglobin 10.4 g/dL (12.0-15.5) Hematocrit 31.3 % (36.0-47.0) Mean Corpuscular Volume 94 fL (79-100) Mean Corpuscular Hemoglobin 31 pg (25-35) Mean Corpuscular Hemoglobin Concent 33 g/dL (31-37) Red Cell Distribution Width 20.7 % (11.5-14.5) Platelet Count 189 x10^3/uL (140-400) Neutrophils (%) (Auto) 83 % (31-73) Lymphocytes (%) (Auto) 13 % (24-48) Monocytes (%) (Auto) 2 % (0-9) Eosinophils (%) (Auto) 2 % (0-3) Basophils (%) (Auto) 0 % (0-3) Neutrophils # (Auto) 2.6 x10^3uL (1.8-7.7) Lymphocytes # (Auto) 0.4 x10^3/uL (1.0-4.8) Monocytes # (Auto) 0.1 x10^3/uL (0.0-1.1) Eosinophils # (Auto) 0.1 x10^3/uL (0.0-0.7) Basophils # (Auto) 0.0 x10^3/uL (0.0-0.2) Sodium Level 136 mmol/L (136-145) Potassium Level 4.2 mmol/L (3.5-5.1) Chloride Level 101 mmol/L (98-107) Carbon Dioxide Level 32 mmol/L (21-32) Anion Gap 3 (6-14) Blood Urea Nitrogen 18 mg/dL (7-20) Creatinine 1.0 mg/dL (0.6-1.0) Estimated GFR (Cockcroft-Gault) 55.5 Glucose Level 112 mg/dL (70-99) Calcium Level 8.4 mg/dL (8.5-10.1) Magnesium Level 1.8 mg/dL (1.8-2.4) Vitamin B12 Level 587 pg/mL (247-911) Medications Active Scripts Medications Dose Route/Sig Max Daily Dose Days Date Category Dose Instructions Tudorza Pressair (Aclidinium [place]) 400 Mcg Aer.pow.ba 400 Mcg IH 03/21/18 Reported Tramadol Hcl 50 Mg Tablet 50 Mg PO Q4HRS PRN 03/21/18 Reported Famotidine 20 Mg Tablet 20 Mg PO HS 03/21/18 Reported Proair Respiclick (Albuterol Sulfate) 90 Mcg Aer.pow.ba 1 Puff IH PRN Q6HRS PRN 03/21/18 Reported Metoprolol Tartrate 25 Mg Tablet 0.5 Tab PO BID 03/21/18 Reported Alendronate Sodium 70 Mg Tablet 70 Mg PO WEEKLY 05/03/17 Reported Azathioprine 50 Mg Tablet 50 Mg PO 05/03/17 Reported Aspir 81 (Aspirin) 81 Mg Tablet.dr 1 Tab PO DAILY 05/03/17 Reported Atorvastatin Calcium 80 Mg Tablet 1 Tab PO DAILY 05/03/17 Reported Clopidogrel (Clopidogrel Bisulfate) 75 Mg Tablet 75 Mg PO DAILY 05/03/17 Reported Vitamin D2 (Ergocalciferol (Vitamin D2)) 50,000 Unit Capsule 50,000 Unit PO 05/25/14 Reported Hydroxychloroquine Sulfate 200 Mg Tablet 1 Tab PO BID 04/29/14 Reported Indication: arthritis Next dose: 05/01/14 pm Impression . 1. Acute respiratory failure secondary to acute diastolic congestive heart failure 2. Abnormal chest x-ray.c/w CHF 3. Acute diastolic congestive heart failure. 4. Chronic obstructive pulmonary disease. 5. Ex-smoker. 6. Systemic lupus erythematosus, on Plaquenil and azathioprine, immunocompromised. 7. Anemia. 8. Leukopenia. 9. Ex-smoker. Plan . 1. Titrate FiO2 to keep O2 saturation 92%. 2. Continue bronchodilator. 3. Continue inhaled corticosteroid, 4. I agree with Lasix 5. Agree with Cardiology consultation. 6. I do recommend echocardiogram. 7. Monitor respiratory status very closely. 8. Lovenox for DVT prophylaxis. 9. Protonix for stress ulcer prophylaxis. 10. JOHNNY SABA MD Mar 23, 2018 12:06
[2018-03-23 15:00] VITALS: BP 109/57
--- NOTE | 2018-03-23 15:28 | PDOC ---
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 03/23/18 1528: CARDIO Progress Notes Date and Time Date of Service 03/23/2018 Time of Evaluation 1527 Subjective Subjective: No Chest Pain, No Palpitations, No Dizziness, Other (dyspnea with prolonged exertion ) Vitals Vitals Vital Signs Date Time Temp Pulse Resp B/P (MAP) Pulse Ox O2 Delivery O2 Flow Rate FiO2 03/23/18 11:13 98.0 75 16 115/71 (86) 95 Room Air 98.0 03/23/18 08:00 2.0 Weight Weight [ ] Input and Output Intake and Output Intake and Output 03/23/18 07:00 Intake Total 1130 ml Output Total 1525 ml Balance -395 ml Intake Oral 1130 ml Output Urine Total 1525 ml Laboratory Labs Laboratory Tests Test 03/23/18 04:15 White Blood Count 3.2 x10^3/uL (4.0-11.0) Red Blood Count 3.33 x10^6/uL (3.50-5.40) Hemoglobin 10.4 g/dL (12.0-15.5) Hematocrit 31.3 % (36.0-47.0) Mean Corpuscular Volume 94 fL (79-100) Mean Corpuscular Hemoglobin 31 pg (25-35) Mean Corpuscular Hemoglobin Concent 33 g/dL (31-37) Red Cell Distribution Width 20.7 % (11.5-14.5) Platelet Count 189 x10^3/uL (140-400) Neutrophils (%) (Auto) 83 % (31-73) Lymphocytes (%) (Auto) 13 % (24-48) Monocytes (%) (Auto) 2 % (0-9) Eosinophils (%) (Auto) 2 % (0-3) Basophils (%) (Auto) 0 % (0-3) Neutrophils # (Auto) 2.6 x10^3uL (1.8-7.7) Lymphocytes # (Auto) 0.4 x10^3/uL (1.0-4.8) Monocytes # (Auto) 0.1 x10^3/uL (0.0-1.1) Eosinophils # (Auto) 0.1 x10^3/uL (0.0-0.7) Basophils # (Auto) 0.0 x10^3/uL (0.0-0.2) Sodium Level 136 mmol/L (136-145) Potassium Level 4.2 mmol/L (3.5-5.1) Chloride Level 101 mmol/L (98-107) Carbon Dioxide Level 32 mmol/L (21-32) Anion Gap 3 (6-14) Blood Urea Nitrogen 18 mg/dL (7-20) Creatinine 1.0 mg/dL (0.6-1.0) Estimated GFR (Cockcroft-Gault) 55.5 Glucose Level 112 mg/dL (70-99) Calcium Level 8.4 mg/dL (8.5-10.1) Magnesium Level 1.8 mg/dL (1.8-2.4) Vitamin B12 Level 587 pg/mL (247-911) Physical Exam HEENT: Neck Supple W Full Motion Chest: Symmetric LUNGS: Other (scattered exp wheezing; no crackles) Heart: S1S2, RRR Abdomen: Soft N/T Extremities: No Edema Neurology: alert, oriented, follow commands Diagnostic Tests Echocardiogram: Normal LVEF, Normal Valves, Other (PA = 43 mm Hg) Assessment Assessment 1. acute/chronic diastolic heart failure --previously diagnosed/treated @ [facility] & follows in the system ([facility]); will request records --preserved LVEF on TTE; no significant valvular disease --treated with IV diuretics -- convert to oral diuretics tomorrow --control BP 2. AECOPD --per pulm 3. CAD with prior PCI by history 4.HTN --control with oral meds 5. History of SLE. 6. HLD with low HDLs --LDLs well treated --continue usual meds TERE SANDHU MD 03/24/18 2314: CARDIO Progress Notes Plan Plan Pt. seen and examined. Late entry for 03/23/2018. 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 supportive care. Change to oral diuresis on 03/24/2018. Thanks KEENAN PALMA APRN Mar 23, 2018 15:28 TERE SANDHU MD Mar 24, 2018 23:14
--- NOTE | 2018-03-23 16:42 | PDOC ---
Provider Note Provider Note Hem-Onc consult: 1. Leukopenia due to Imuran/SLE. Continue to monitor. Ok to continue Imuran as leukopenia is mild and ANC normal. See dictation [id number] QI FAULKNER MD Mar 23, 2018 16:42
[2018-03-23 19:41] VITALS: BP 118/61
[2018-03-23] MEDS: ATORVASTATIN CALCIUM 40 MG TABLET. PO SCH (21:18)
[2018-03-23 23:17] VITALS: BP 104/61
[2018-03-24 03:06] VITALS: BP 110/61
[2018-03-24 05:19] LABS: BASO % 1 % (0-3); EOS # 0.1 x10^3/uL (0.0-0.7); EOS % 2 % (0-3); HEMOGLOBIN 11.4 g/dL (12.0-15.5); LYMPH # 0.5 x10^3/uL (1.0-4.8); LYMPH % 13 % (24-48); MEAN CORPUSCULAR HEMOGLOBIN 32 pg (25-35); MEAN CORPUSCULAR HGB CONC 33 g/dL (31-37); MEAN CORPUSCULAR VOLUME 94 fL (79-100); MONO # 0.1 x10^3/uL (0.0-1.1); MONO % 2 % (0-9); NEUT % 83 % (31-73); PLATELET COUNT 199 x10^3/uL (140-400); RED BLOOD COUNT 3.61 x10^6/uL (3.50-5.40); RED CELL DISTRIBUTION WIDTH 20.3 % (11.5-14.5); WHITE BLOOD COUNT 3.6 x10^3/uL (4.0-11.0)
[2018-03-24 05:47] LABS: CALCIUM 8.8 mg/dL (8.5-10.1); CREATININE 0.9 mg/dL (0.6-1.0); GFR 62.6; POTASSIUM 4.5 mmol/L (3.5-5.1)
--- NOTE | 2018-03-24 06:47 | CONS ---
DATE OF CONSULTATION: 03/23/2018 REQUESTING PHYSICIAN: Dr. Reinaldo Desir. REASON FOR CONSULTATION: Leukopenia. HISTORY OF PRESENT ILLNESS: The patient is a 67-year-old female who has a history of COPD and chronic hypoxic respiratory failure, coronary artery disease, hyperlipidemia and systemic lupus erythematosus, who was admitted to [facility] on 03/21/2018 for shortness of breath. She is being managed for acute congestive heart failure and COPD. She was noted to have leukopenia with a WBC count of 3.7 on 03/21/2018 and then got worse at 2.9 on 03/22/2018 and hence I was consulted for further evaluation of leukopenia. Review of the old records indicates that she has had leukopenia on and off. Her WBC count on 04/30/2014 was 3.4 and on 05/03/2017 it was 3.3. The patient reports having had systemic lupus erythematosus for a long time and she has been on Plaquenil for many years. It was changed to Imuran in 2016. She denies any frequent infections. No fevers, chills or night sweats. PAST MEDICAL HISTORY: COPD, CHF, coronary artery disease, chronic hypoxic respiratory failure, systemic lupus erythematosus, GERD, hyperlipidemia, osteoporosis. SOCIAL HISTORY: She quit smoking in 08/2014. No alcohol abuse. FAMILY HISTORY: Father had congestive heart failure. Mother had heart problems. Brother had cerebrovascular accident. REVIEW OF SYSTEMS: A 12-point review of system was performed. Pertinent positives are mentioned in the history of present illness. Rest of the system review is negative. PHYSICAL EXAMINATION: GENERAL APPEARANCE: The patient is a 67-year-old female who is in no acute cardiorespiratory distress. VITAL SIGNS: Blood pressure 115/71, temperature 98.0. HEENT: Head atraumatic, normocephalic. Eyes: No icterus. NECK: Supple. CHEST: Bilaterally symmetrical. HEART: S1, S2 normal. ABDOMEN: Soft, nontender. CENTRAL NERVOUS SYSTEM: No focal deficits. LYMPHATICS: No lymphadenopathy. SKIN: No rashes. PSYCHOLOGIC: Mood and affect are appropriate. MUSCULOSKELETAL: No joint effusions. LABORATORY DATA: WBC 3.2, hemoglobin 10.4, platelet count 189. Creatinine 1.0, total bilirubin 1.3, AST 92, ALT 93, alkaline phosphatase 87, total protein 6.2, albumin 2.2. Ferritin 248, iron is 34, TIBC 186, iron saturation 18. Vitamin B12 587. IMPRESSION AND PLAN: 1. Leukopenia secondary to systemic lupus erythematosus and Imuran. The absolute neutrophil count is normal at 2.6. Hence, I would not recommend any changes to her management of systemic lupus erythematosus. It is okay to continue Imuran as the absolute neutrophil count continues to stay normal. I have advised her that the leukopenia is a side effect of Imuran and it can also be caused by systemic lupus erythematosus itself. I have advised her to follow up with her music box mechanic upon discharge for continued management of her lupus. I have advised her to follow up with me in 1 or 2 months to check her CBC again. 2. Anemia due to chronic disease. Iron studies are suggestive of anemia due to chronic disease. 3. Dyspnea due to congestive heart failure and chronic obstructive pulmonary disease. Continue management per Dr. Desir. QI FAULKNER MD DR: ANJELICA/jeanine JOB#: [id number] / [id number] TARIQ
[2018-03-24 07:45] VITALS: BP 102/56
[2018-03-24] MEDS: BUDESONIDE 0.5 MG/2 ML NEBU. NEB SCH (08:15)
[2018-03-24] MEDS: IPRATRPIUM/ALBUTEROL 0.5/2.5MG 3 ML NEBU. NEB SCH ×2 (08:15→12:25)
--- NOTE | 2018-03-24 08:23 | PDOC ---
PROGRESS NOTES Subjective Subjective FEELS BETTER,. NOT SHORT OF BREATH. lungs are clear. lab and cxr reviewed. Objective Objective Vital Signs Date Time Temp Pulse Resp B/P (MAP) Pulse Ox O2 Delivery O2 Flow Rate FiO2 03/24/18 08:17 Room Air 03/24/18 03:06 97.0 58 16 110/61 (77) 100 2.0 97.0 Intake and Output 03/24/18 07:00 Intake Total 300 ml Output Total 1350 ml Balance -1050 ml Intake Oral 300 ml Output Urine Total 1350 ml Physical Exam Abdomen: Soft Heart: Regular rate, Normal S1, Normal S2 Extremities: No edema General: Alert HEENT: Atraumatic Lungs: Clear to auscultation Neuro: Strength at 5/5 X4 ext Psych/Mental Status: Mental status NL Skin: No rashes Assessment Assessment Problems Acute diastolic congestive heart failure compensated 2. Chronic obstructive pulmonary disease. 3. Acute on chronic hypoxic respiratory failure. 4. Coronary artery disease. 5. Hyperlipidemia. 6. Anemia of chronic disease. 7. Systemic lupus erythematosus. 8. Gastroesophageal reflux disease. 9. Moderate protein calorie malnutrition. Leukopenia multinodular goiter with complex suspicious right nodule Medical Problems: (1) COPD (chronic obstructive pulmonary disease) Status: Acute (2) Cough with hemoptysis Status: Acute Plan Plan of Care switch to oral lasix dismiss after thyroid biopsy today Comment Review of Relevant I have reviewed the following items mata (where applicable) has been applied. Labs Laboratory Tests Test 03/23/18 04:15 03/24/18 04:50 White Blood Count 3.2 x10^3/uL (4.0-11.0) 3.6 x10^3/uL (4.0-11.0) Red Blood Count 3.33 x10^6/uL (3.50-5.40) 3.61 x10^6/uL (3.50-5.40) Hemoglobin 10.4 g/dL (12.0-15.5) 11.4 g/dL (12.0-15.5) Hematocrit 31.3 % (36.0-47.0) 34.0 % (36.0-47.0) Mean Corpuscular Volume 94 fL (79-100) 94 fL (79-100) Mean Corpuscular Hemoglobin 31 pg (25-35) 32 pg (25-35) Mean Corpuscular Hemoglobin Concent 33 g/dL (31-37) 33 g/dL (31-37) Red Cell Distribution Width 20.7 % (11.5-14.5) 20.3 % (11.5-14.5) Platelet Count 189 x10^3/uL (140-400) 199 x10^3/uL (140-400) Neutrophils (%) (Auto) 83 % (31-73) 83 % (31-73) Lymphocytes (%) (Auto) 13 % (24-48) 13 % (24-48) Monocytes (%) (Auto) 2 % (0-9) 2 % (0-9) Eosinophils (%) (Auto) 2 % (0-3) 2 % (0-3) Basophils (%) (Auto) 0 % (0-3) 1 % (0-3) Neutrophils # (Auto) 2.6 x10^3uL (1.8-7.7) 3.0 x10^3uL (1.8-7.7) Lymphocytes # (Auto) 0.4 x10^3/uL (1.0-4.8) 0.5 x10^3/uL (1.0-4.8) Monocytes # (Auto) 0.1 x10^3/uL (0.0-1.1) 0.1 x10^3/uL (0.0-1.1) Eosinophils # (Auto) 0.1 x10^3/uL (0.0-0.7) 0.1 x10^3/uL (0.0-0.7) Basophils # (Auto) 0.0 x10^3/uL (0.0-0.2) 0.0 x10^3/uL (0.0-0.2) Sodium Level 136 mmol/L (136-145) 136 mmol/L (136-145) Potassium Level 4.2 mmol/L (3.5-5.1) 4.5 mmol/L (3.5-5.1) Chloride Level 101 mmol/L (98-107) 102 mmol/L (98-107) Carbon Dioxide Level 32 mmol/L (21-32) 29 mmol/L (21-32) Anion Gap 3 (6-14) 5 (6-14) Blood Urea Nitrogen 18 mg/dL (7-20) 21 mg/dL (7-20) Creatinine 1.0 mg/dL (0.6-1.0) 0.9 mg/dL (0.6-1.0) Estimated GFR (Cockcroft-Gault) 55.5 62.6 Glucose Level 112 mg/dL (70-99) 102 mg/dL (70-99) Calcium Level 8.4 mg/dL (8.5-10.1) 8.8 mg/dL (8.5-10.1) Magnesium Level 1.8 mg/dL (1.8-2.4) Vitamin B12 Level 587 pg/mL (247-911) Laboratory Tests Test 03/24/18 04:50 White Blood Count 3.6 x10^3/uL (4.0-11.0) Red Blood Count 3.61 x10^6/uL (3.50-5.40) Hemoglobin 11.4 g/dL (12.0-15.5) Hematocrit 34.0 % (36.0-47.0) Mean Corpuscular Volume 94 fL (79-100) Mean Corpuscular Hemoglobin 32 pg (25-35) Mean Corpuscular Hemoglobin Concent 33 g/dL (31-37) Red Cell Distribution Width 20.3 % (11.5-14.5) Platelet Count 199 x10^3/uL (140-400) Neutrophils (%) (Auto) 83 % (31-73) Lymphocytes (%) (Auto) 13 % (24-48) Monocytes (%) (Auto) 2 % (0-9) Eosinophils (%) (Auto) 2 % (0-3) Basophils (%) (Auto) 1 % (0-3) Neutrophils # (Auto) 3.0 x10^3uL (1.8-7.7) Lymphocytes # (Auto) 0.5 x10^3/uL (1.0-4.8) Monocytes # (Auto) 0.1 x10^3/uL (0.0-1.1) Eosinophils # (Auto) 0.1 x10^3/uL (0.0-0.7) Basophils # (Auto) 0.0 x10^3/uL (0.0-0.2) Sodium Level 136 mmol/L (136-145) Potassium Level 4.5 mmol/L (3.5-5.1) Chloride Level 102 mmol/L (98-107) Carbon Dioxide Level 29 mmol/L (21-32) Anion Gap 5 (6-14) Blood Urea Nitrogen 21 mg/dL (7-20) Creatinine 0.9 mg/dL (0.6-1.0) Estimated GFR (Cockcroft-Gault) 62.6 Glucose Level 102 mg/dL (70-99) Calcium Level 8.8 mg/dL (8.5-10.1) Medications Current Medications Furosemide (Lasix) 40 mg 1X ONCE IVP Last administered on 03/21/18at 10:59; Start 03/21/18 at 10:45; Stop 03/21/18 at 10:46; Status DC Albuterol/ Ipratropium (Duoneb) 3 ml 1X ONCE NEB Last administered on at 11:01; Start 03/21/18 at 11:00; Stop 03/21/18 at 11:01; Status DC Furosemide (Lasix) 20 mg [id number] IVP Last administered on 03/22/18at 14:00; Start 03/21/18 at 14:00; Stop 03/23/18 at 08:28; Status DC Enoxaparin Sodium (Lovenox 40mg Syringe) 40 mg Q24H SQ Last administered on 07/28at 17:22; Start 03/21/18 at 16:00; Stop 03/23/18 at 08:28; Status DC Acetaminophen (Tylenol) 650 mg PRN Q6HRS PRN PO MILD PAIN / TEMP; Start at 16:00 Magnesium Hydroxide (Milk Of Magnesia) 2,400 mg PRN DAILY PRN PO CONSTIPATION; Start 03/21/18 at 16:00 Budesonide (Pulmicort) 0.5 mg RTBID NEB Last administered on 03/24/18at 08:15; Start 03/21/18 at 20:00 Albuterol/ Ipratropium (Duoneb) 3 ml RTQID NEB Last administered on 03/24/18at 08:15; Start 03/21/18 at 16:00 Albuterol Sulfate (Ventolin Neb Soln) 2.5 mg PRN Q4HRS PRN NEB SHORTNESS OF BREATH; Start 03/21/18 at 16:15 Atorvastatin Calcium (Lipitor) 80 mg QHS PO Last administered on 03/23/18 21: 18; Start 03/21/18 at 21:00 Clopidogrel Bisulfate (Plavix) 75 mg DAILYWBKFT PO Last administered on 09:21; Start 03/22/18 at 08:00 Aspirin (Children'S Aspirin) 81 mg DAILYWBKFT PO Last administered on at 09:21; Start 03/22/18 at 08:00 Famotidine (Pepcid) 20 mg BID PO Last administered on 03/23/18 21:18; Start at 21:00 Hydroxychloroquine Sulfate (Plaquenil) 200 mg BID PO Last administered on 21:18; Start 03/21/18 at 21:00 Azathioprine (Imuran) 50 mg BID PO Last administered on 03/23/18 21:18; Start 03/21/18 at 21:00 Metoprolol Tartrate (Lopressor) 12.5 mg BID PO Last administered on 03/23/18 21:19; Start 03/21/18 at 21:00 Tramadol HCl (Ultram) 50 mg PRN Q6HRS PRN PO PAIN MODERATE; Start 03/21/18 at 16:00 Vitamin D (Vitamin D3) 1,000 unit DAILY PO Last administered on 03/23/18 09:21 ; Start 03/22/18 at 09:00 Non-Formulary Medication 1 ea QSU@0800 PO Last administered on 03/22/18at 07:57 ; Start 03/22/18 at 08:00 Furosemide (Lasix) 40 mg DAILY IVP Last administered on 03/23/18at 09:22; Start 03/23/18 at 09:00 Active Scripts Active Reported Tudorza Pressair (Aclidinium [place]) 400 Mcg Aer.pow.ba 400 Mcg IH Tramadol Hcl 50 Mg Tablet 50 Mg PO Q4HRS PRN Famotidine 20 Mg Tablet 20 Mg PO HS Proair Respiclick (Albuterol Sulfate) 90 Mcg Aer.pow.ba 1 Puff IH PRN Q6HRS PRN Metoprolol Tartrate 25 Mg Tablet 0.5 Tab PO BID Alendronate Sodium 70 Mg Tablet 70 Mg PO WEEKLY Azathioprine 50 Mg Tablet 50 Mg PO Aspir 81 (Aspirin) 81 Mg Tablet. 1 Tab PO DAILY Atorvastatin Calcium 80 Mg Tablet 1 Tab PO DAILY Clopidogrel (Clopidogrel Bisulfate) 75 Mg Tablet 75 Mg PO DAILY Vitamin D2 (Ergocalciferol (Vitamin D2)) 50,000 Unit Capsule 50,000 Unit PO Hydroxychloroquine Sulfate 200 Mg Tablet 1 Tab PO BID Indication: arthritis Next dose: 05/01/14 pm Vitals/I & O Vital Sign - Last 24 Hours 03/23/18 03/23/18 03/23/18 03/23/18 09:21 11:12 11:13 15:00 Temp 98.0 97.5 98.0 97.5 Pulse 70 75 67 Resp 16 16 B/P (MAP) 115/71 (86) 109/57 (74) Pulse Ox 95 97 O2 Delivery Room Air Room Air Room Air 03/23/18 03/23/18 03/23/18 03/23/18 15:44 19:28 19:29 19:41 Temp 98.3 98.3 Pulse 73 Resp 16 B/P (MAP) 118/61 (80) Pulse Ox 95 O2 Delivery Room Air Room Air Room Air Room Air 03/23/18 03/23/18 03/23/18 03/24/18 20:00 21:19 23:17 03:06 Temp 98.1 97.0 98.1 97.0 Pulse 70 65 58 Resp 16 16 B/P (MAP) 102/59 104/61 (75) 110/61 (77) Pulse Ox 100 100 O2 Delivery Nasal Cannula Nasal Cannula Nasal Cannula O2 Flow Rate 2.0 2.0 2.0 03/24/18 08:17 O2 Delivery Room Air Intake and Output 03/23/18 03/23/18 03/24/18 15:00 23:00 07:00 Intake Total 300 ml Output Total 750 ml 600 ml Balance -750 ml -300 ml ZOHREH DMEPSEY MD Mar 24, 2018 08:23
--- NOTE | 2018-03-24 08:26 | DISCH ---
DISCHARGE INSTRUCTIONS Condition on Discharge Condition on Discharge: Stable Activity After Discharge Activity Instructions for Disc: Resume previous activity Diet after Discharge Diet after Discharge: Cardiac, Regular Checks after Discharge Checks after discharge: Check blood press - daily, Weigh Yourself Daily Contacting the DRHemanth after DC Call your doctor for: If your condition worsens Follow-Up Follow up with: dr. dempsey next week ZOHREH DEMPSEY MD Mar 24, 2018 08:26
[2018-03-24] MEDS ORDERED: FURO20TA3 PO (08:29)
--- NOTE | 2018-03-24 08:36 | PDOC ---
Provider Note Provider Note discharge summary dictated # [id number] ZOHREH DEMPSEY MD Mar 24, 2018 08:36
[2018-03-24] MEDS: CHOLECALCIFEROL (VITAMIN D3) 1,000 UNIT TABLET PO SCH (08:49)
[2018-03-24] MEDS: HYDROXYCHLOROQUINE 200 MG TABLET PO SCH (08:49)
[2018-03-24] MEDS: azaTHIOprine 50 MG TABLET PO SCH (08:49)
[2018-03-24] MEDS: FAMOTIDINE 20 MG TABLET. PO SCH (08:49)
[2018-03-24] MEDS: CLOPIDOGREL BISULFATE 75 MG TABLET PO SCH (08:49)
[2018-03-24] MEDS: ASPIRIN CHEWABLE 81 MG TABLET. PO SCH (08:49)
[2018-03-24] MEDS: METOPROLOL TART IMMED RELEASE 25 MG TABLET. PO SCH (08:50)
[2018-03-24] MEDS ORDERED: FUROSEMIDE 20 MG TABLET PO SCH (09:00)
--- NOTE | 2018-03-24 09:17 | PDOC ---
PROGRESS NOTES Subjective Subjective HPI -f/u of Leukopenia ROS - dyspnea better Objective Objective Vital Signs Date Time Temp Pulse Resp B/P (MAP) Pulse Ox O2 Delivery O2 Flow Rate FiO2 03/24/18 08:50 Room Air 03/24/18 08:50 102/56 03/24/18 07:45 98.1 58 18 94 98.1 03/24/18 03:06 2.0 Intake and Output 03/24/18 07:00 Intake Total 300 ml Output Total 1350 ml Balance -1050 ml Intake Oral 300 ml Output Urine Total 1350 ml Physical Exam Heart: Normal S1, Normal S2 General: Alert, Oriented X3, No acute distress Lungs: Clear to auscultation Neuro: Normal speech Psych/Mental Status: Mental status NL Assessment Assessment Problems Medical Problems: (1) COPD (chronic obstructive pulmonary disease) Status: Acute (2) Cough with hemoptysis Status: Acute IMPRESSION AND PLAN: 1. Leukopenia secondary to systemic lupus erythematosus and Imuran. The absolute neutrophil count is normal at 2.6. Hence, I would not recommend any changes to her management of systemic lupus erythematosus. It is okay to continue Imuran as the absolute neutrophil count continues to stay normal. I have advised her that the leukopenia is a side effect of Imuran and it can also be caused by systemic lupus erythematosus itself. 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 I have advised her to follow up with me in 1 or 2 months to check her CBC again. WBC now 3.6. 2. Anemia due to chronic disease. Iron studies are suggestive of anemia due to chronic disease. B12 normal 587 on 03/23/18. 3. Dyspnea due to congestive heart failure and chronic obstructive pulmonary disease. Continue management per Dr. Desir. 4. SLE - f/u with Rheumatology. Comment Review of Relevant I have reviewed the following items mata (where applicable) has been applied. Labs Laboratory Tests Test 03/23/18 04:15 03/24/18 04:50 White Blood Count 3.2 x10^3/uL (4.0-11.0) 3.6 x10^3/uL (4.0-11.0) Red Blood Count 3.33 x10^6/uL (3.50-5.40) 3.61 x10^6/uL (3.50-5.40) Hemoglobin 10.4 g/dL (12.0-15.5) 11.4 g/dL (12.0-15.5) Hematocrit 31.3 % (36.0-47.0) 34.0 % (36.0-47.0) Mean Corpuscular Volume 94 fL (79-100) 94 fL (79-100) Mean Corpuscular Hemoglobin 31 pg (25-35) 32 pg (25-35) Mean Corpuscular Hemoglobin Concent 33 g/dL (31-37) 33 g/dL (31-37) Red Cell Distribution Width 20.7 % (11.5-14.5) 20.3 % (11.5-14.5) Platelet Count 189 x10^3/uL (140-400) 199 x10^3/uL (140-400) Neutrophils (%) (Auto) 83 % (31-73) 83 % (31-73) Lymphocytes (%) (Auto) 13 % (24-48) 13 % (24-48) Monocytes (%) (Auto) 2 % (0-9) 2 % (0-9) Eosinophils (%) (Auto) 2 % (0-3) 2 % (0-3) Basophils (%) (Auto) 0 % (0-3) 1 % (0-3) Neutrophils # (Auto) 2.6 x10^3uL (1.8-7.7) 3.0 x10^3uL (1.8-7.7) Lymphocytes # (Auto) 0.4 x10^3/uL (1.0-4.8) 0.5 x10^3/uL (1.0-4.8) Monocytes # (Auto) 0.1 x10^3/uL (0.0-1.1) 0.1 x10^3/uL (0.0-1.1) Eosinophils # (Auto) 0.1 x10^3/uL (0.0-0.7) 0.1 x10^3/uL (0.0-0.7) Basophils # (Auto) 0.0 x10^3/uL (0.0-0.2) 0.0 x10^3/uL (0.0-0.2) Sodium Level 136 mmol/L (136-145) 136 mmol/L (136-145) Potassium Level 4.2 mmol/L (3.5-5.1) 4.5 mmol/L (3.5-5.1) Chloride Level 101 mmol/L (98-107) 102 mmol/L (98-107) Carbon Dioxide Level 32 mmol/L (21-32) 29 mmol/L (21-32) Anion Gap 3 (6-14) 5 (6-14) Blood Urea Nitrogen 18 mg/dL (7-20) 21 mg/dL (7-20) Creatinine 1.0 mg/dL (0.6-1.0) 0.9 mg/dL (0.6-1.0) Estimated GFR (Cockcroft-Gault) 55.5 62.6 Glucose Level 112 mg/dL (70-99) 102 mg/dL (70-99) Calcium Level 8.4 mg/dL (8.5-10.1) 8.8 mg/dL (8.5-10.1) Magnesium Level 1.8 mg/dL (1.8-2.4) Vitamin B12 Level 587 pg/mL (247-911) Laboratory Tests Test 03/24/18 04:50 White Blood Count 3.6 x10^3/uL (4.0-11.0) Red Blood Count 3.61 x10^6/uL (3.50-5.40) Hemoglobin 11.4 g/dL (12.0-15.5) Hematocrit 34.0 % (36.0-47.0) Mean Corpuscular Volume 94 fL (79-100) Mean Corpuscular Hemoglobin 32 pg (25-35) Mean Corpuscular Hemoglobin Concent 33 g/dL (31-37) Red Cell Distribution Width 20.3 % (11.5-14.5) Platelet Count 199 x10^3/uL (140-400) Neutrophils (%) (Auto) 83 % (31-73) Lymphocytes (%) (Auto) 13 % (24-48) Monocytes (%) (Auto) 2 % (0-9) Eosinophils (%) (Auto) 2 % (0-3) Basophils (%) (Auto) 1 % (0-3) Neutrophils # (Auto) 3.0 x10^3uL (1.8-7.7) Lymphocytes # (Auto) 0.5 x10^3/uL (1.0-4.8) Monocytes # (Auto) 0.1 x10^3/uL (0.0-1.1) Eosinophils # (Auto) 0.1 x10^3/uL (0.0-0.7) Basophils # (Auto) 0.0 x10^3/uL (0.0-0.2) Sodium Level 136 mmol/L (136-145) Potassium Level 4.5 mmol/L (3.5-5.1) Chloride Level 102 mmol/L (98-107) Carbon Dioxide Level 29 mmol/L (21-32) Anion Gap 5 (6-14) Blood Urea Nitrogen 21 mg/dL (7-20) Creatinine 0.9 mg/dL (0.6-1.0) Estimated GFR (Cockcroft-Gault) 62.6 Glucose Level 102 mg/dL (70-99) Calcium Level 8.8 mg/dL (8.5-10.1) Medications Current Medications Furosemide (Lasix) 40 mg 1X ONCE IVP Last administered on 03/21/18at 10:59; Start 03/21/18 at 10:45; Stop 03/21/18 at 10:46; Status DC Albuterol/ Ipratropium (Duoneb) 3 ml 1X ONCE NEB Last administered on at 11:01; Start 03/21/18 at 11:00; Stop 03/21/18 at 11:01; Status DC Furosemide (Lasix) 20 mg BID92 IVP Last administered on 03/22/18at 14:00; Start 03/21/18 at 14:00; Stop 03/23/18 at 08:28; Status DC Enoxaparin Sodium (Lovenox 40mg Syringe) 40 mg Q24H SQ Last administered on 07/28at 17:22; Start 03/21/18 at 16:00; Stop 03/23/18 at 08:28; Status DC Acetaminophen (Tylenol) 650 mg PRN Q6HRS PRN PO MILD PAIN / TEMP; Start at 16:00 Magnesium Hydroxide (Milk Of Magnesia) 2,400 mg PRN DAILY PRN PO CONSTIPATION; Start 03/21/18 at 16:00 Budesonide (Pulmicort) 0.5 mg RTBID NEB Last administered on 03/24/18 08:15; Start 03/21/18 at 20:00 Albuterol/ Ipratropium (Duoneb) 3 ml RTQID NEB Last administered on 03/24/18 08:15; Start 03/21/18 at 16:00 Albuterol Sulfate (Ventolin Neb Soln) 2.5 mg PRN Q4HRS PRN NEB SHORTNESS OF BREATH; Start 03/21/18 at 16:15 Atorvastatin Calcium (Lipitor) 80 mg QHS PO Last administered on 03/23/18 21: 18; Start 03/21/18 at 21:00 Clopidogrel Bisulfate (Plavix) 75 mg DAILYWBKFT PO Last administered on 08:49; Start 03/22/18 at 08:00 Aspirin (Children'S Aspirin) 81 mg DAILYWBKFT PO Last administered on 08:49; Start 03/22/18 at 08:00 Famotidine (Pepcid) 20 mg BID PO Last administered on 03/24/18 08:49; Start at 21:00 Hydroxychloroquine Sulfate (Plaquenil) 200 mg BID PO Last administered on 08:49; Start 03/21/18 at 21:00 Azathioprine (Imuran) 50 mg BID PO Last administered on 03/24/18 08:49; Start 03/21/18 at 21:00 Metoprolol Tartrate (Lopressor) 12.5 mg BID PO Last administered on 03/24/18 08:50; Start 03/21/18 at 21:00 Tramadol HCl (Ultram) 50 mg PRN Q6HRS PRN PO PAIN MODERATE Last administered on 03/24/18 08:50; Start 03/21/18 at 16:00 Vitamin D (Vitamin D3) 1,000 unit DAILY PO Last administered on 03/24/18 08:49 ; Start 03/22/18 at 09:00 Non-Formulary Medication 1 ea QSU@0800 PO Last administered on 03/22/18 07:57 ; Start 03/22/18 at 08:00 Furosemide (Lasix) 40 mg DAILY IVP Last administered on 8/13/18at 09:22; Start 03/23/18 at 09:00; Stop 03/24/18 at 08:32; Status DC Furosemide (Lasix) 20 mg DAILY PO Last administered on 03/24/18at 08:49; Start 03/24/18 at 09:00 Active Scripts Active Furosemide 20 Mg Tablet 1 Tab PO DAILY 30 Days Reported Tudorza Pressair (Aclidinium Myrtle) 400 Mcg Aer.pow.ba 400 Mcg IH Tramadol Hcl 50 Mg Tablet 50 Mg PO Q4HRS PRN Famotidine 20 Mg Tablet 20 Mg PO HS Proair Respiclick (Albuterol Sulfate) 90 Mcg Aer.pow.ba 1 Puff IH PRN Q6HRS PRN Metoprolol Tartrate 25 Mg Tablet 0.5 Tab PO BID Alendronate Sodium 70 Mg Tablet 70 Mg PO WEEKLY Azathioprine 50 Mg Tablet 50 Mg PO Aspir 81 (Aspirin) 81 Mg Tablet.dr 1 Tab PO DAILY Atorvastatin Calcium 80 Mg Tablet 1 Tab PO DAILY Clopidogrel (Clopidogrel Bisulfate) 75 Mg Tablet 75 Mg PO DAILY Hydroxychloroquine Sulfate 200 Mg Tablet 1 Tab PO BID Indication: arthritis Next dose: 05/01/14 pm Vitals/I & O Vital Sign - Last 24 Hours 03/23/18 03/23/18 03/23/18 03/23/18 09:21 11:12 11:13 15:00 Temp 98.0 97.5 98.0 97.5 Pulse 70 75 67 Resp 16 16 B/P (MAP) 115/71 (86) 109/57 (74) Pulse Ox 95 97 O2 Delivery Room Air Room Air Room Air 03/23/18 03/23/18 03/23/18 03/23/18 15:44 19:28 19:29 19:41 Temp 98.3 98.3 Pulse 73 Resp 16 B/P (MAP) 118/61 (80) Pulse Ox 95 O2 Delivery Room Air Room Air Room Air Room Air 03/23/18 03/23/18 03/23/18 03/24/18 20:00 21:19 23:17 03:06 Temp 98.1 97.0 98.1 97.0 Pulse 70 65 58 Resp 16 16 B/P (MAP) 102/59 104/61 (75) 110/61 (77) Pulse Ox 100 100 O2 Delivery Nasal Cannula Nasal Cannula Nasal Cannula O2 Flow Rate 2.0 2.0 2.0 03/24/18 03/24/18 03/24/18 03/24/18 07:45 08:17 08:50 08:50 Temp 98.1 98.1 Pulse 58 Resp 18 B/P (MAP) 102/56 (71) 102/56 Pulse Ox 94 O2 Delivery Room Air Room Air Room Air Intake and Output 03/23/18 03/23/18 03/24/18 15:00 23:00 07:00 Intake Total 300 ml Output Total 750 ml 600 ml Balance -750 ml -300 ml QI FAULKNER MD Mar 24, 2018 09:17
[2018-03-24 11:00] VITALS: BP 127/69
[2018-03-24] MEDS ORDERED: LIDOCAINE 1% Multi-Dose 50 ML VIAL. INJ ONE ×2 (11:00→13:15)
--- NOTE | 2018-03-24 11:21 | PDOC ---
CARDIO Progress Notes Date and Time Date of Service 03/24/2018 Time of Evaluation 1116 Subjective Subjective: No Chest Pain, No shortness of breath, No Palpitations, No Dizziness Vitals Vitals Vital Signs Date Time Temp Pulse Resp B/P (MAP) Pulse Ox O2 Delivery O2 Flow Rate FiO2 03/24/18 09:50 Room Air 03/24/18 08:50 102/56 03/24/18 07:45 98.1 58 18 94 98.1 03/24/18 03:06 2.0 Weight Weight [ ] Input and Output Intake and Output Intake and Output 03/24/18 07:00 Intake Total 300 ml Output Total 1350 ml Balance -1050 ml Intake Oral 300 ml Output Urine Total 1350 ml Laboratory Labs Laboratory Tests Test 03/24/18 04:50 White Blood Count 3.6 x10^3/uL (4.0-11.0) Red Blood Count 3.61 x10^6/uL (3.50-5.40) Hemoglobin 11.4 g/dL (12.0-15.5) Hematocrit 34.0 % (36.0-47.0) Mean Corpuscular Volume 94 fL (79-100) Mean Corpuscular Hemoglobin 32 pg (25-35) Mean Corpuscular Hemoglobin Concent 33 g/dL (31-37) Red Cell Distribution Width 20.3 % (11.5-14.5) Platelet Count 199 x10^3/uL (140-400) Neutrophils (%) (Auto) 83 % (31-73) Lymphocytes (%) (Auto) 13 % (24-48) Monocytes (%) (Auto) 2 % (0-9) Eosinophils (%) (Auto) 2 % (0-3) Basophils (%) (Auto) 1 % (0-3) Neutrophils # (Auto) 3.0 x10^3uL (1.8-7.7) Lymphocytes # (Auto) 0.5 x10^3/uL (1.0-4.8) Monocytes # (Auto) 0.1 x10^3/uL (0.0-1.1) Eosinophils # (Auto) 0.1 x10^3/uL (0.0-0.7) Basophils # (Auto) 0.0 x10^3/uL (0.0-0.2) Sodium Level 136 mmol/L (136-145) Potassium Level 4.5 mmol/L (3.5-5.1) Chloride Level 102 mmol/L (98-107) Carbon Dioxide Level 29 mmol/L (21-32) Anion Gap 5 (6-14) Blood Urea Nitrogen 21 mg/dL (7-20) Creatinine 0.9 mg/dL (0.6-1.0) Estimated GFR (Cockcroft-Gault) 62.6 Glucose Level 102 mg/dL (70-99) Calcium Level 8.8 mg/dL (8.5-10.1) Physical Exam HEENT: Neck Supple W Full Motion Chest: Symmetric LUNGS: Other (soft basilar crackles posteriorly) Heart: S1S2, RRR, other (tele: SR) Abdomen: Soft N/T Extremities: No Edema Neurology: alert, oriented, follow commands Diagnostic Tests Echocardiogram: Normal LVEF, Normal Valves, Other (PA = 43 mm Hg) Assessment Assessment 1. acute/chronic diastolic heart failure --previously diagnosed/treated @ [facility] & follows in the system ([facility]); will request records --preserved LVEF on TTE; no significant valvular disease --converted to oral diuretics today --control BP 2. AECOPD --per pulm 3. CAD with prior PCI by history 4.HTN --control with oral meds 5. History of SLE. 6. HLD with low HDLs --LDLs well treated --continue usual meds Agreeable with discharge F/U with MAC @ in the next 7 - 10 days KEENAN PALMA APRN Mar 24, 2018 11:21
--- NOTE | 2018-03-24 13:11 | PDOC ---
PULMONARY PROGRESS NOTES Subjective feels better Vitals Vital Signs Date Time Temp Pulse Resp B/P (MAP) Pulse Ox O2 Delivery O2 Flow Rate FiO2 03/24/18 12:26 Room Air 03/24/18 11:00 97.8 62 18 127/69 (88) 97 97.8 03/24/18 08:00 2.0 General: Alert, No acute distress Lungs: Crackles (bases) Cardiovascular: S1, S2 Abdomen: Soft, Non-tender Neuro Exam: Alert Extremities: No Edema Labs Laboratory Tests Test 03/23/18 04:15 03/24/18 04:50 White Blood Count 3.2 x10^3/uL (4.0-11.0) 3.6 x10^3/uL (4.0-11.0) Red Blood Count 3.33 x10^6/uL (3.50-5.40) 3.61 x10^6/uL (3.50-5.40) Hemoglobin 10.4 g/dL (12.0-15.5) 11.4 g/dL (12.0-15.5) Hematocrit 31.3 % (36.0-47.0) 34.0 % (36.0-47.0) Mean Corpuscular Volume 94 fL (79-100) 94 fL (79-100) Mean Corpuscular Hemoglobin 31 pg (25-35) 32 pg (25-35) Mean Corpuscular Hemoglobin Concent 33 g/dL (31-37) 33 g/dL (31-37) Red Cell Distribution Width 20.7 % (11.5-14.5) 20.3 % (11.5-14.5) Platelet Count 189 x10^3/uL (140-400) 199 x10^3/uL (140-400) Neutrophils (%) (Auto) 83 % (31-73) 83 % (31-73) Lymphocytes (%) (Auto) 13 % (24-48) 13 % (24-48) Monocytes (%) (Auto) 2 % (0-9) 2 % (0-9) Eosinophils (%) (Auto) 2 % (0-3) 2 % (0-3) Basophils (%) (Auto) 0 % (0-3) 1 % (0-3) Neutrophils # (Auto) 2.6 x10^3uL (1.8-7.7) 3.0 x10^3uL (1.8-7.7) Lymphocytes # (Auto) 0.4 x10^3/uL (1.0-4.8) 0.5 x10^3/uL (1.0-4.8) Monocytes # (Auto) 0.1 x10^3/uL (0.0-1.1) 0.1 x10^3/uL (0.0-1.1) Eosinophils # (Auto) 0.1 x10^3/uL (0.0-0.7) 0.1 x10^3/uL (0.0-0.7) Basophils # (Auto) 0.0 x10^3/uL (0.0-0.2) 0.0 x10^3/uL (0.0-0.2) Sodium Level 136 mmol/L (136-145) 136 mmol/L (136-145) Potassium Level 4.2 mmol/L (3.5-5.1) 4.5 mmol/L (3.5-5.1) Chloride Level 101 mmol/L (98-107) 102 mmol/L (98-107) Carbon Dioxide Level 32 mmol/L (21-32) 29 mmol/L (21-32) Anion Gap 3 (6-14) 5 (6-14) Blood Urea Nitrogen 18 mg/dL (7-20) 21 mg/dL (7-20) Creatinine 1.0 mg/dL (0.6-1.0) 0.9 mg/dL (0.6-1.0) Estimated GFR (Cockcroft-Gault) 55.5 62.6 Glucose Level 112 mg/dL (70-99) 102 mg/dL (70-99) Calcium Level 8.4 mg/dL (8.5-10.1) 8.8 mg/dL (8.5-10.1) Magnesium Level 1.8 mg/dL (1.8-2.4) Vitamin B12 Level 587 pg/mL (247-911) Laboratory Tests Test 03/24/18 04:50 White Blood Count 3.6 x10^3/uL (4.0-11.0) Red Blood Count 3.61 x10^6/uL (3.50-5.40) Hemoglobin 11.4 g/dL (12.0-15.5) Hematocrit 34.0 % (36.0-47.0) Mean Corpuscular Volume 94 fL (79-100) Mean Corpuscular Hemoglobin 32 pg (25-35) Mean Corpuscular Hemoglobin Concent 33 g/dL (31-37) Red Cell Distribution Width 20.3 % (11.5-14.5) Platelet Count 199 x10^3/uL (140-400) Neutrophils (%) (Auto) 83 % (31-73) Lymphocytes (%) (Auto) 13 % (24-48) Monocytes (%) (Auto) 2 % (0-9) Eosinophils (%) (Auto) 2 % (0-3) Basophils (%) (Auto) 1 % (0-3) Neutrophils # (Auto) 3.0 x10^3uL (1.8-7.7) Lymphocytes # (Auto) 0.5 x10^3/uL (1.0-4.8) Monocytes # (Auto) 0.1 x10^3/uL (0.0-1.1) Eosinophils # (Auto) 0.1 x10^3/uL (0.0-0.7) Basophils # (Auto) 0.0 x10^3/uL (0.0-0.2) Sodium Level 136 mmol/L (136-145) Potassium Level 4.5 mmol/L (3.5-5.1) Chloride Level 102 mmol/L (98-107) Carbon Dioxide Level 29 mmol/L (21-32) Anion Gap 5 (6-14) Blood Urea Nitrogen 21 mg/dL (7-20) Creatinine 0.9 mg/dL (0.6-1.0) Estimated GFR (Cockcroft-Gault) 62.6 Glucose Level 102 mg/dL (70-99) Calcium Level 8.8 mg/dL (8.5-10.1) Medications Active Scripts Medications Dose Route/Sig Max Daily Dose Days Date Category Dose Instructions Tudorza Pressair (Aclidinium Randolph) 400 Mcg Aer.pow.ba 400 Mcg IH 03/21/18 Reported Tramadol Hcl 50 Mg Tablet 50 Mg PO Q4HRS PRN 03/21/18 Reported Famotidine 20 Mg Tablet 20 Mg PO HS 03/21/18 Reported Proair Respiclick (Albuterol Sulfate) 90 Mcg Aer.pow.ba 1 Puff IH PRN Q6HRS PRN 03/21/18 Reported Metoprolol Tartrate 25 Mg Tablet 0.5 Tab PO BID 03/21/18 Reported Alendronate Sodium 70 Mg Tablet 70 Mg PO WEEKLY 05/03/17 Reported Azathioprine 50 Mg Tablet 50 Mg PO 05/03/17 Reported Aspir 81 (Aspirin) 81 Mg Tablet.dr 1 Tab PO DAILY 05/03/17 Reported Atorvastatin Calcium 80 Mg Tablet 1 Tab PO DAILY 05/03/17 Reported Clopidogrel (Clopidogrel Bisulfate) 75 Mg Tablet 75 Mg PO DAILY 05/03/17 Reported Vitamin D2 (Ergocalciferol (Vitamin D2)) 50,000 Unit Capsule 50,000 Unit PO 05/25/14 Reported Hydroxychloroquine Sulfate 200 Mg Tablet 1 Tab PO BID 04/29/14 Reported Indication: arthritis Next dose: 05/01/14 pm Impression . 1. Acute respiratory failure secondary to acute diastolic congestive heart failure vs ILD 2. Abnormal chest x-ray.c/w mild interstitial infiltrates. CHF vs SLE induced ILD 4. Chronic obstructive pulmonary disease. 5. Ex-smoker. 6. Systemic lupus erythematosus, on Plaquenil and azathioprine, immunocompromised. 7. Anemia. 8. Leukopenia. 9. Ex-smoker. Plan . 1. Titrate FiO2 to keep O2 saturation 92%. 2. Continue bronchodilator. 3. Continue inhaled corticosteroid, 4. I agree with Lasix 5. Agree with Cardiology consultation. 6. Feels better for dc. Consider ct chest as OP to r/o ILD SLE induced/ f/u with DR PIERRE IN APR JOHNNY SABA MD Mar 24, 2018 13:11
--- NOTE | 2018-03-24 18:05 | DS ---
DATE OF DISCHARGE: 03/24/2018 CONSULTATIONS: Dr. Sims. Dr. Cosme. Dr. Uriostegui. FINAL DIAGNOSES: 1. Acute diastolic congestive heart failure. 2. Chronic obstructive pulmonary disease. 3. Acute on chronic hypoxic respiratory failure. 4. Coronary artery disease. 5. Hyperlipidemia. 6. Anemia of chronic disease. 7. Systemic lupus erythematosus. 8. Gastroesophageal reflux disease. 9. Moderate protein-calorie malnutrition. 10. Leukopenia. 11. Multinodular goiter with a complex suspicious right thyroid nodule. PROCEDURE: Thyroid biopsy today. HOSPITAL COURSE: The patient is a 67-year-old white female with history of chronic obstructive pulmonary disease and chronic hypoxic respiratory failure, coronary artery disease, hyperlipidemia, systemic lupus erythematosus, noted the onset of shortness of breath for 6 days and dyspnea on exertion and lower extremity edema. She has some chest pain associated with an occasional dry cough, coughing up scant amount of sputum, went to [facility] one day prior to admission, and a chest x-ray was consistent with acute congestive heart failure with elevated BNP, and she received IV diuretics. CAT scan of the chest, angiogram was negative for pulmonary embolus, and she was sent home on oral furosemide 20 mg daily. She then went to the [facility] Emergency Room and was admitted on 03/21/2018 with shortness of breath, acute diastolic congestive heart failure. Echocardiogram showed a left ventricular ejection fraction with no valvular dysfunction and had a 43 mm pulmonary artery pressure consistent with moderate pulmonary hypertension. The patient was seen by Dr. Sims for leukopenia secondary to her lupus and Imuran and felt the Imuran could be continued. She was seen in consultation by Dr. Uriostegui for Cardiology and received IV Lasix and was switched to oral Lasix on the day of dismissal, seen by Dr. Cosme for chronic obstructive pulmonary disease, treated with nebulizer treatments and oxygen. We will check a room air oxygen saturation to see if she can be weaned off oxygen here today, but she uses oxygen at home at night. In addition, she had a multinodular thyroid noted on ultrasound of the thyroid, was suspicious for right thyroid nodule, and she will have a right thyroid nodule biopsy today, and then, she will be able to be dismissed later today. She was told to make an appointment to see Dr. Desir in 1 week and was dismissed on a cardiac diet, will be dismissed on albuterol inhaler 1 puff every 4-6 hours p.r.n., alendronate 70 mg every week, aspirin 81 mg every day, atorvastatin 80 mg every day, budesonide nebulizer treatments b.i.d., Plavix 75 mg every day, Pepcid 20 mg b.i.d., Plaquenil 200 mg b.i.d. and Imuran 50 mg b.i.d., DuoNeb nebulizer treatments q.i.d.. Metoprolol tartrate 12.5 mg b.i.d., nitroglycerin 0.4 mg sublingual p.r.n., tramadol 50 mg every 4 hours p.r.n. Tudorza Pressair 1 puff daily, vitamin D 1000 units every day and furosemide 20 mg p.o. every day. She will have oxygen level evaluated to see if she needs home oxygen during the day. ZOHREH DESIR MD DR: PALMER/jeanine JOB#: [id number] / [id number]
--- NOTE | 2018-03-25 18:13 | RAD ---
CLINICAL HISTORY: Right thyroid nodule COMPARISON: Thyroid ultrasound 03/22/2018 PROCEDURE: Preliminary sonographic images of the thyroid gland were obtained. The mixed solid and cystic right thyroid nodule is identified.. The procedure and risks of ultrasound guided aspiration were explained to the patient and informed written consent obtained. Verification pause was observed. Laterality was confirmed. The site of aspiration was marked. Using standard sterile technique, 4 25 G fine needle aspirations of the right thyroid nodule were obtained. There were no immediate complications. The patient was observed in the radiology department for 30 minutes and released in satisfactory condition. IMPRESSION: Successful right thyroid nodule FNA. Electronically signed by: Mukesh Palacios MD (03/25/2018 6:10 PM) [facility]
--- NOTE | 2018-03-26 13:12 | PATHOLOGY ---
Note [facility] Accession Number: [id number] TESTS RESULT FLAG UNITS REF RANGE LAB Clinician Provided Cytology Information No. of containers..01 Other (Miscellaneous) Source: RT THYROID DIAGNOSIS: RT THYROID NEGATIVE FOR MALIGNANT CELLS. BETHESDA CATEGORY II. SPECIMEN CONSISTS OF ABUNDANT BENIGN FOLLICULAR CELLS, HEMOSIDERIN-LADEN MACROPHAGES, SCANT COLLOID AND BLOOD. THE PATTERN IS CONSISTENT WITH ADENOMATOID NODULE. THIS INTERPRETATION INCLUDES EVALUATION OF A CELL BLOCK. Pathologist ICD10: 02 E04.1 Signed out by: 02 Vitaliy Germain MD, Pathologist NPI- [id number] Performed by: Fatoumata Guardado, Stock Handler Floorperson ([facility]) Gross description: 01 30ML, PINK, CLOUDY /LCS FLAG LEGEND: L-Low Normal,H-High Normal,LL-Alert Low,HH-Alert High <-Panic Low,>-Panic High,A-Abnormal,AA-Critical Abnormal Performed at: [address] [place] [address] Sam Smith MD, SATYA [address] [address] Gadiel Orozco MD, Performed at: [address], [place], [place] [id number] MD Sam Smith MD Phone: [phone]
== END 2018-03-24 14:50 | disposition home or self-care (01) | DRG 291 ==
LOC: ER 10:19 → 1 WEST ICU 13:30 → 2 NORTH 03-22 16:02
PROVIDERS: ADMIT Internal Medicine; ATTEND Internal Medicine
PROC: 0GBH3ZX Excision of Right Thyroid Gland Lobe, Percutaneous Approach, Diagnostic (ICD-10-PCS; principal; 2018-03-22)
DX: I11.0 Hypertensive heart disease with heart failure (principal); J96.21 Acute and chronic respiratory failure with hypoxia; E44.0 Moderate protein-calorie malnutrition; J44.1 Chronic obstructive pulmonary disease with (acute) exacerbation; I50.33 Acute on chronic diastolic (congestive) heart failure; D63.8 Anemia in other chronic diseases classified elsewhere; D72.819 Decreased white blood cell count, unspecified; E04.2 Nontoxic multinodular goiter; E78.00 Pure hypercholesterolemia, unspecified; E78.5 Hyperlipidemia, unspecified; I25.10 Atherosclerotic heart disease of native coronary artery without angina pectoris; I27.20 Pulmonary hypertension, unspecified; K21.9 Gastro-esophageal reflux disease without esophagitis; M06.9 Rheumatoid arthritis, unspecified; M19.90 Unspecified osteoarthritis, unspecified site; M32.9 Systemic lupus erythematosus, unspecified; M81.0 Age-related osteoporosis without current pathological fracture; I25.2 Old myocardial infarction; Z79.82 Long term (current) use of aspirin; Z88.8 Allergy status to other drugs, medicaments and biological substances; Z79.83 Long term (current) use of bisphosphonates; Z82.3 Family history of stroke; Z82.49 Family history of ischemic heart disease and other diseases of the circulatory system; Z86.010 Personal history of colon polyps; Z87.01 Personal history of pneumonia (recurrent); Z87.11 Personal history of peptic ulcer disease; Z87.891 Personal history of nicotine dependence; Z95.5 Presence of coronary angioplasty implant and graft; Z98.51 Tubal ligation status; Z99.81 Dependence on supplemental oxygen; Z68.21 Body mass index [BMI] 21.0-21.9, adult
CPT/HCPCS: 36415; 36600; 60300; 71045; 71046; 76536; 76942; 80048; 80053; 80061; 82607; 82728; 82805; 83540; 83550; 83735; 83880; 84484; 85025; 87641; 93005; 93306; 93970; 94640; 96374; J1650; J1940; J7500; J7620; J7626; 99285-25

== ENCOUNTER → 2018-05-26 | Outpatient (CLI) | payer BC, MEDICARE ==
[~2018-05-26] MED LIST changes: +ACLI400A2 IH; +ALBU6.7H8 IH; +DOXY100C14 PO; +FAMO20TA5 PO; +FURO20TA3 PO; +METO25TA4 PO; +PROAIR RESPICL90 MCG IH
--- NOTE | 2018-05-26 13:15 | KCIC ---
EXAM: Dual energy x-ray absorptiometry (DEXA). HISTORY: Postmenopausal female presents for osteoporosis screening. COMPARISON: None. TECHNIQUE: Dual energy x-ray absorptiometry of the lumbar spine and left was performed. Calculation of bone mineral density based on standard deviations above or below the expected young adult normal value (T-score) was completed. FINDINGS: The average bone mineral density in the 1st through 4th lumbar vertebrae is 0.761 g/cmxcm, corresponding with a T-score of -2.6. The average total bone mineral density in the left hip is 0.576 g/cmxcm, corresponding with a T-score of -3.0. IMPRESSION: Osteoporosis measured at the lumbar spine and left hip. Note: Definitions established by the World Health Organization: 1. Normal: T-score is -1.0 or above. 2. Osteopenia: T-score is between -1.0 and -2.5 . 3. Osteoporosis: T-score is -2.5 or below. Electronically signed by: Janelle Martin MD (05/26/2018 1:12 PM) [facility]
--- NOTE | 2018-05-26 15:39 | KCIC ---
Bilateral digital screening mammograms with 3-D tomosynthesis: Reason for examination: Routine baseline screening. Bilateral mammograms in CC and oblique projections were obtained with 2-D imaging and 3-D tomosynthesis imaging on a Siemens Inspiration unit and reviewed on the workstation. Interpretation was made with the benefit of CAD. The skin and nipples show no abnormalities. No abnormal axillary lymph nodes are seen. The breast parenchyma shows scattered fatty and fibroglandular density. (Breast density: Category B.) There are no dominant masses, suspicious calcifications or architectural distortion. Impression: No evidence of malignancy. Recommend routine screening. BI-RAD Category 1: Negative. "Our facility is accredited by the [employer] Mammography Program." This patient's information has been entered into a reminder system for the patient to be notified with the results of her examination and a target date for the next mammogram. Electronically signed by: Jenise Simpson MD (05/26/2018 3:35 PM) [id number]
== END | disposition home or self-care (01) ==
LOC: KCIC DEXA 11:46
PROVIDERS: ATTEND Internal Medicine
DX: Z12.31 Encounter for screening mammogram for malignant neoplasm of breast (principal); M81.0 Age-related osteoporosis without current pathological fracture; M85.89 Other specified disorders of bone density and structure, multiple sites; Z78.0 Asymptomatic menopausal state
CPT/HCPCS: 77063; 77067; 77080

== ENCOUNTER → 2018-06-15 | Outpatient (CLI) | payer BC, MEDICARE ==
--- NOTE | 2018-06-15 15:48 | KCIC ---
CHEST PA LATERAL Clinical indications: Cough. Shortness of air. COPD. Smoker. Patient on O2. COMPARISON: March 23, 2018. Findings: Small bilateral pleural effusions are now evident. Chronic interstitial lung disease is seen bilaterally. Heart size is mildly enlarged but stable. The mediastinum and pulmonary vasculature are stable. No pneumothorax is evident. The osseous structures appear intact. Impression: Small bilateral pleural effusions. Chronic interstitial lung disease. Certainly, superimposed acute interstitial pulmonary edema may be present clinically. Stable mild cardiomegaly. Electronically signed by: Godfrey Carey MD (06/15/2018 3:45 PM) [place] [id number]
== END | disposition home or self-care (01) ==
LOC: KCIC 14:03
PROVIDERS: ATTEND Internal Medicine
DX: J44.9 Chronic obstructive pulmonary disease, unspecified (principal); I51.7 Cardiomegaly; F17.210 Nicotine dependence, cigarettes, uncomplicated; J84.89 Other specified interstitial pulmonary diseases; J90 Pleural effusion, not elsewhere classified
CPT/HCPCS: 71046

== ENCOUNTER → 2019-01-01 | Outpatient (CLI) | payer BC, MEDICARE ==
[~2019-01-01] MED LIST changes: +ALBU2.5V8 IH; -ALBU6.7H8 IH; -ALEN70TA5 PO; +ALEN70TA6 PO; -PROAIR HFA8.5 GM IH; +PROVENTIL HFA6.7 G2 IH
--- NOTE | 2019-01-01 15:58 | KCIC ---
EXAM: CT Chest without IV contrast CLINICAL HISTORY: Abnormal CT, pleural effusion. History of tobacco use 40 years. COMPARISON: CT chest 10/14/2018, 05/04/2017. Prior report is not available. TECHNIQUE: CT of the chest without intravenous contrast. Axial, coronal and sagittal reformatted images were generated. ---PQRS compliance statement - One or more of the following individualized dose reduction techniques were utilized for this study: 1. Automated exposure control 2. Adjustment of the mA and/or kV according to patient size 3. Use of iterative reconstruction technique--- FINDINGS: Lack of intravenous contrast limits evaluation of solid organs, vasculature, and lymph nodes. Chest: The heart is mildly enlarged. No pericardial effusion. Coronary artery calcifications are seen. No pleural effusion or pneumothorax. Evaluation for mediastinal and hilar lymphadenopathy limited on this noncontrast exam. Prominent mediastinal and hilar lymph nodes are seen. An enlarged AP window lymph node measures 1.9 x 1 cm (series 2 image 23). No axillary lymphadenopathy. Bilateral emphysematous changes are seen. Wedge-shaped left lower lobe parenchymal airspace opacity is seen in the medial left lower lobe. On the prior CT from 10/17/2018, this was larger and more confluent, demonstrating interval improvement. A 4 mm left upper lobe lung nodule (series 6 image 22) is stable. A 1.7 cm right thyroid nodule is seen. This was previously biopsied, please refer to prior pathology report. Visualized Upper abdomen: Calcified gallstones are seen within the gallbladder. Aortic calcifications are seen. Bones: Degenerative changes of the spine are noted. IMPRESSION: 1. A posterior left lower lobe wedge-shaped airspace opacity is seen, significantly improved compared to prior CT 10/14/2018. This likely represents healing/resolving infectious or inflammatory process. Recommend imaging follow-up to resolution. 2. A 1.7 cm right thyroid nodule is seen. This was previously biopsied, and can be correlated to prior pathology report. Electronically signed by: Mukesh Palacios MD (01/01/2019 3:55 PM) [id number]
== END | disposition home or self-care (01) ==
LOC: KCIC CT 09:43
PROVIDERS: ATTEND Internal Medicine Pulmonary Disease
DX: E04.1 Nontoxic single thyroid nodule (principal); K80.20 Calculus of gallbladder without cholecystitis without obstruction; I70.0 Atherosclerosis of aorta; J43.9 Emphysema, unspecified; R91.1 Solitary pulmonary nodule; Z87.891 Personal history of nicotine dependence
CPT/HCPCS: 71250

== ENCOUNTER → 2019-03-18 | Outpatient (CLI) | payer BC, MEDICARE, OTHER ==
[~2019-03-18] MED LIST changes: -ACLI400A2 IH; +ACLI400A3 IH; -PANT40TA5 PO; +PANT40TA77 PO
--- NOTE | 2019-03-18 12:39 | RAD ---
EXAM: Chest, 2 views. HISTORY: Cough. COMPARISON: 01/01/2019 FINDINGS: 2 views of the chest are obtained. There is diffuse increased interstitial opacity. There is no consolidation, pleural effusion or pneumothorax. There is a stable prominent cardiac silhouette. IMPRESSION: Diffuse increased interstitial opacity due to interstitial infiltrate or chronic interstitial changes. No consolidation is seen. Electronically signed by: Janelle Martin MD (03/18/2019 12:36 PM) [place] [id number]
== END | disposition home or self-care (01) ==
LOC: RAD 12:02
PROVIDERS: ATTEND Internal Medicine Pulmonary Disease
DX: R91.8 Other nonspecific abnormal finding of lung field (principal)
CPT/HCPCS: 71046

== ENCOUNTER 2019-05-03 18:12 | Emergency (ER) | payer OTHER ==
[~2019-05-03] VITALS: Ht 168.9 cm; Wt 66.2 kg
--- NOTE | 2019-05-03 18:44 | PHYS DOC ---
Past Medical History Past Medical History: Anemia, Arthritis, CAD, CHF, COPD, GERD, High Cholesterol, Hypertension Additional Past Medical Histor: OSTEOPOROSIS, LUPUS Past Surgical History: Tubal ligation, Other Additional Past Surgical Histo: back surgery, carpal tunnel, finger, 3 STENTS,HEART CATH Alcohol Use: None Drug Use: None Adult General Chief Complaint Chief Complaint: ABDOMINAL PAIN HPI HPI Patient is a 69 year old female that presents to the ER with abdominal pain since last night. The patient states it is worsened today after eating biscuits and gravy. The pain is located epigastric region of the stomach. The patient rates her pain as 5 out of 10 in severity and sharp. The patient is on home oxygen at baseline at 2 L in the room assessment. This is due to her history of COPD. The patient states she has a history of gallstones but has not yet had her gallbladder taken out. She states the pain radiates up to her chest. Review of Systems Review of Systems Constitutional: Denies fever or chills [] Eyes: Denies change in visual acuity, redness, or eye pain [] HENT: Denies nasal congestion or sore throat [] Respiratory: Denies cough or shortness of breath [] Cardiovascular: No additional information not addressed in HPI [] GI: Reports abdominal pain, Denies nausea, vomiting, bloody stools or diarrhea [] : Denies dysuria or hematuria [] Musculoskeletal: Denies back pain or joint pain [] Integument: Denies rash or skin lesions [] Neurologic: Denies headache, focal weakness or sensory changes [] Endocrine: Denies polyuria or polydipsia [] Complete systems were reviewed and found to be within normal limits, except as documented in this note. Current Medications Current Medications Current Medications Medications (Trade) Dose Ordered Sig/Elizabeth Start Time Stop Time Status Last Admin Dose Admin Albuterol/ Ipratropium (Duoneb) 3 ml 1X ONCE 05/03/19 18:45 05/03/19 18:46 DC 05/03/19 19:01 3 ML Ceftriaxone Sodium (Rocephin) 1 gm 1X ONCE 05/03/19 20:00 05/03/19 20:01 DC 05/03/19 20:07 1 GM Morphine Sulfate (Morphine Sulfate) 2 mg 1X ONCE 05/03/19 18:45 05/03/19 18:46 DC 05/03/19 19:02 2 MG Multi-Ingredient Mouthwash/Gargle (Gi Cocktail) 20 ml 1X ONCE 05/03/19 18:45 05/03/19 18:46 DC 05/03/19 19:03 20 ML Ondansetron HCl (Zofran) 4 mg 1X ONCE 05/03/19 18:45 05/03/19 18:46 DC 05/03/19 19:02 4 MG Allergies Allergies Allergies Coded Allergies Type Severity Reaction Last Updated Verified NSAIDS (Non-Steroidal Anti-Inflamma Allergy Intermediate 05/04/17 Yes Physical Exam Physical Exam Constitutional: Well developed, well nourished, no acute distress, non-toxic appearance. [] HENT: Normocephalic, atraumatic, bilateral external ears normal, oropharynx moist, no oral exudates, nose normal. [] Eyes: PERRLA, EOMI, conjunctiva normal, no discharge. [] Neck: Normal range of motion, no tenderness, supple, no stridor. [] Cardiovascular:Heart rate regular rhythm, no murmur [] Lungs & Thorax: Bilateral breath sounds, scattered wheezing. Abdomen: Bowel sounds normal, soft, diffuse tenderness localized to epigastric region, no masses, no pulsatile masses. [] Skin: Warm, dry, no erythema, no rash. [] Back: No tenderness, no CVA tenderness. [] Extremities: No tenderness, no cyanosis, no clubbing, ROM intact, no edema. [] Neurologic: Alert and oriented X 3, normal motor function, normal sensory function, no focal deficits noted. [] Psychologic: Affect normal, judgement normal, mood normal. [] Current Patient Data Vital Signs Vital Signs Date Time Temp Pulse Resp B/P (MAP) Pulse Ox O2 Delivery O2 Flow Rate FiO2 05/03/19 19:02 20 98 Room Air 05/03/19 19:01 2.0 05/03/19 18:30 98.1 69 130/80 (97) 98.1 Lab Values Laboratory Tests Test 05/03/19 18:25 05/03/19 18:50 Urine Collection Type Void Urine Color Yellow Urine Clarity Clear Urine pH 5.0 Urine Specific [place] 1.020 Urine Protein Negative mg/dL (NEG-TRACE) Urine Glucose (UA) Negative mg/dL (NEG) Urine Ketones (Stick) Negative mg/dL (NEG) Urine Blood Negative (NEG) Urine Nitrite Positive (NEG) Urine Bilirubin Negative (NEG) Urine Urobilinogen Dipstick 0.2 mg/dL (0.2 mg/dL) Urine Leukocyte Esterase Moderate (NEG) Urine RBC 1-2 /HPF (0-2) Urine WBC 20-40 /HPF (0-4) Urine Squamous Epithelial Cells Many /LPF Urine Bacteria Many /HPF (0-FEW) Urine Mucus Mod /LPF White Blood Count 4.3 x10^3/uL (4.0-11.0) Red Blood Count 4.24 x10^6/uL (3.50-5.40) Hemoglobin 12.0 g/dL (12.0-15.5) Hematocrit 36.3 % (36.0-47.0) Mean Corpuscular Volume 86 fL (79-100) Mean Corpuscular Hemoglobin 28 pg (25-35) Mean Corpuscular Hemoglobin Concent 33 g/dL (31-37) Red Cell Distribution Width 17.1 % (11.5-14.5) H Platelet Count 228 x10^3/uL (140-400) Neutrophils (%) (Auto) 70 % (31-73) Lymphocytes (%) (Auto) 26 % (24-48) Monocytes (%) (Auto) 3 % (0-9) Eosinophils (%) (Auto) 1 % (0-3) Basophils (%) (Auto) 0 % (0-3) Neutrophils # (Auto) 3.0 x10^3/uL (1.8-7.7) Lymphocytes # (Auto) 1.1 x10^3/uL (1.0-4.8) Monocytes # (Auto) 0.1 x10^3/uL (0.0-1.1) Eosinophils # (Auto) 0.0 x10^3/uL (0.0-0.7) Basophils # (Auto) 0.0 x10^3/uL (0.0-0.2) Sodium Level 140 mmol/L (136-145) Potassium Level 4.0 mmol/L (3.5-5.1) Chloride Level 103 mmol/L (98-107) Carbon Dioxide Level 29 mmol/L (21-32) Anion Gap 8 (6-14) Blood Urea Nitrogen 21 mg/dL (7-20) H Creatinine 1.0 mg/dL (0.6-1.0) Estimated GFR (Cockcroft-Gault) 55.1 BUN/Creatinine Ratio 21 (6-20) H Glucose Level 96 mg/dL (70-99) Calcium Level 9.5 mg/dL (8.5-10.1) Total Bilirubin 0.4 mg/dL (0.2-1.0) Aspartate Amino Transferase (AST) 22 U/L (15-37) Alanine Aminotransferase (ALT) 9 U/L (14-59) L Alkaline Phosphatase 128 U/L (46-116) H Troponin I Quantitative < 0.017 ng/mL (0.000-0.055) Total Protein 7.2 g/dL (6.4-8.2) Albumin 2.8 g/dL (3.4-5.0) L Albumin/Globulin Ratio 0.6 (1.0-1.7) L Lipase 146 U/L (73-393) Laboratory Tests 05/03/19 18:50 Laboratory Tests 05/03/19 18:50 EKG EKG EKG interpreted by Dr. Stevenson Sinus rate of 65. No STEMI.[] Radiology/Procedures Radiology/Procedures [][address] [id number] IMAGING REPORT Signed PATIENT: NUVIA TRAMMELL EACCOUNT: [id number] : 1950 LOCATION: ER AGE: 69 SEX: F EXAM STATUS: REG ER ORD. PHYSICIAN: ZOHREH DUFFY APRN REASON: epigastric pain PROCEDURE: CHEST PA & LATERAL CHEST PA LATERAL CLINICAL INDICATION: Epigastric pain. COMPARISON: 03/18/2019 FINDINGS: Heart is normal in size. Diffuse interstitial opacities are seen. No pneumothorax or pleural effusion. Visualized bony thorax within normal limits. IMPRESSION: Findings suggests atypical/viral infection or chronic interstitial changes. No significant change compared to previous exam from 03/18/2019.. Electronically signed by: Phil King DO (05/03/2019 8:11 PM) [facility] DICTATED and SIGNED BY: PHIL KING DO DATE: 05/03/192010 [address] [place] [address] IMAGING REPORT Signed PATIENT: NUVIA TRAMMELL EACCOUNT: [id number] : 1950 LOCATION: ER AGE: 69 SEX: F EXAM STATUS: REG ER ORD. PHYSICIAN: ZOHREH DUFFY APRN REASON: abd pain PROCEDURE: ABDOMEN COMPLETE Indication:Abdominal pain. TECHNIQUE: Grayscale, color Doppler and spectral waveform is of the abdomen obtained. COMPARISON:None FINDINGS: Visualized pancreas within normal limits. Pancreatic tail not visualized due to overlying bowel gas. IVC within normal limits. Proximal and distal aortic segments show no evidence of aneurysmal dilation. Mid aortic segment not visualized due to overlying bowel gas. Main portal vein is patent. Liver measures 14 cm in longest dimension diffuse increased echogenicity and decreased through transmission. No pericholecystic fluid or gallbladder wall thickening. Right kidney measures 10.3 cm in length without hydronephrosis. CBD measures 5 mm in diameter and is top normal in size. Spleen measures 10 cm in length and is normal in size. Left kidney suboptimally visualized due to body habitus and bowel gas. IMPRESSION: 1. Hepatic steatosis. 2. Cholelithiasis without imaging evidence of acute cholecystitis. If concern for acute cholecystitis persists, further evaluation with HIDA scan recommended. Electronically signed by: Phil King DO (05/03/2019 7:59 PM) [facility] DICTATED and SIGNED BY: PHIL KING DO DATE: 05/03/191958 Course & Med Decision Making Course & Med Decision Making Pertinent Labs and Imaging studies reviewed. (See chart for details) Will get labs, ultrasound, ekg, chest x-ray, and supportive care. Labs are unremarkable with exception of UTI. Will treat with Keflex. GI cocktail made pain better. Discussed this with the patient and she states that she's been on Protonix however she was taken off the osteoporosis. She is on Pepcid times a day currently. Discussed with patient about talking her primary care doctor about this issue for further management. States that her chest pain disappeared with the GI cocktail. Imaging shows cholelithiasis, patient states she's been seen at for this has been managed by general surgeon there. Currently not having pain in the right upper quadrant. Dragon Disclaimer Dragon Disclaimer This electronic medical record was generated, in whole or in part, using a voice recognition dictation system. Departure Departure Impression: Primary Impression: Asymptomatic cholelithiasis Additional Impressions: Urinary tract infection GERD (gastroesophageal reflux disease) Disposition: 01 HOME, SELF-CARE Condition: STABLE Referrals: ZOHREH DEMPSEY MD (PCP) Patient Instructions: Urinary Tract Infection Additional Instructions: Thank you for visiting [facility]. We appreciate you trusting us with your care. If any additional problems come up don't hesitate to return to visit us. Please follow up with your primary care provider so they can plan additional care if needed and know about the problem that you had. If symptoms worsen come back to the Emergency Department. Any concerning symptoms that start such as chest pain, shortness of air, weakness or numbness on one side of the body, running high fevers or any other concerning symptoms return to the ER. You have been prescribed an antibiotic today to help fight your infection. Please take all of the antibiotic as directed. If after 48 hours the infection is not improving, please return for more care. If the infection worsens, return to ER for additional care. Scripts Cephalexin (KEFLEX) 500 Mg Capsule 1 CAP PO BID for 7 Days, #14 CAP Prov: ZOHREH DUFFY APRN 05/03/19 Problem Qualifiers Additional Impressions: Urinary tract infection Urinary tract infection type: acute cystitis Hematuria presence: without hematuria Qualified Codes: N30.00 - Acute cystitis without hematuria GERD (gastroesophageal reflux disease) Esophagitis presence: esophagitis presence not specified Qualified Codes: K21.9 - Gastro-esophageal reflux disease without esophagitis ZOHREH DUFFY APRN May 03, 2019 18:44
[2019-05-03] MEDS ORDERED: ONDANSETRON PF 4 MG/2 ML VIAL. IV ONE (18:45)
[2019-05-03] MEDS ORDERED: LIDO:MAALOX 1:1 20 ML SINGLE DOSE. SWSW ONE (18:45)
[2019-05-03] MEDS ORDERED: IPRATRPIUM/ALBUTEROL 0.5/2.5MG 3 ML NEBU. NEB ONE (18:45)
[2019-05-03] MEDS ORDERED: MORPHINE SULFATE 2 MG/ML VIAL. IV ONE (18:45)
[2019-05-03 18:47] LABS: BILIRUBIN,URINE NEGATIVE (NEG); CLARITY,URINE CLEAR; COLOR,URINE YELLOW; NITRITE,URINE POSITIVE (NEG); PROTEIN,URINE NEGATIVE (NEG-TRACE); UROBILINOGEN,URINE 0.2 mg/dL (0.2 mg/dL)
[2019-05-03 18:57] LABS: BACTERIA,URINE MANY /HPF (0-FEW); SQUAMOUS EPITHELIAL CELL,UR MANY /LPF; WBC,URINE 20-40 /HPF (0-4)
[2019-05-03 18:59] LABS: BASO % 0 % (0-3); EOS % 1 % (0-3); HEMATOCRIT 36.3 % (36.0-47.0); LYMPH # 1.1 x10^3/uL (1.0-4.8); LYMPH % 26 % (24-48); MEAN CORPUSCULAR HEMOGLOBIN 28 pg (25-35); MEAN CORPUSCULAR HGB CONC 33 g/dL (31-37); MEAN CORPUSCULAR VOLUME 86 fL (79-100); MONO # 0.1 x10^3/uL (0.0-1.1); MONO % 3 % (0-9); NEUT % 70 % (31-73); PLATELET COUNT 228 x10^3/uL (140-400); RED BLOOD COUNT 4.24 x10^6/uL (3.50-5.40); RED CELL DISTRIBUTION WIDTH 17.1 % (11.5-14.5); WHITE BLOOD COUNT 4.3 x10^3/uL (4.0-11.0)
[2019-05-03 19:06] LABS: CALCIUM 9.5 mg/dL (8.5-10.1); GFR 55.1
[2019-05-03 19:12] LABS: ALBUMIN 2.8 g/dL (3.4-5.0); ALBUMIN/GLOBULIN RATIO 0.6 (1.0-1.7); TOTAL BILIRUBIN 0.4 mg/dL (0.2-1.0); TOTAL PROTEIN 7.2 g/dL (6.4-8.2)
[2019-05-03 19:30] VITALS: BP 102/55
[2019-05-03] MEDS ORDERED: cefTRIAXone IV Push 1 GM VIAL. IVP ONE (20:00)
--- NOTE | 2019-05-03 20:02 | RAD ---
Indication:Abdominal pain. TECHNIQUE: Grayscale, color Doppler and spectral waveform is of the abdomen obtained. COMPARISON:None FINDINGS: Visualized pancreas within normal limits. Pancreatic tail not visualized due to overlying bowel gas. IVC within normal limits. Proximal and distal aortic segments show no evidence of aneurysmal dilation. Mid aortic segment not visualized due to overlying bowel gas. Main portal vein is patent. Liver measures 14 cm in longest dimension diffuse increased echogenicity and decreased through transmission. No pericholecystic fluid or gallbladder wall thickening. Right kidney measures 10.3 cm in length without hydronephrosis. CBD measures 5 mm in diameter and is top normal in size. Spleen measures 10 cm in length and is normal in size. Left kidney suboptimally visualized due to body habitus and bowel gas. IMPRESSION: 1. Hepatic steatosis. 2. Cholelithiasis without imaging evidence of acute cholecystitis. If concern for acute cholecystitis persists, further evaluation with HIDA scan recommended. Electronically signed by: Phil King DO (05/03/2019 7:59 PM) [facility]
--- NOTE | 2019-05-03 20:14 | RAD ---
CHEST PA LATERAL CLINICAL INDICATION: Epigastric pain. COMPARISON: 03/18/2019 FINDINGS: Heart is normal in size. Diffuse interstitial opacities are seen. No pneumothorax or pleural effusion. Visualized bony thorax within normal limits. IMPRESSION: Findings suggests atypical/viral infection or chronic interstitial changes. No significant change compared to previous exam from 03/18/2019.. Electronically signed by: Phil King DO (05/03/2019 8:11 PM) [facility]
[2019-05-03] MEDS ORDERED: CEPH-264 PO (21:01)
--- NOTE | 2019-05-04 07:31 | EKG ---
[facility] [address] [place] [address] Test Date: 2019-05-03 Test Time: 18:46:07 Pat Name: NUVIA TRAMMELL Department: Room: Gender: F Dehydrator: : 1950 Requested By: ZOHREH DUFFY Order Number: [id number] Reading MD: Measurements Intervals [place] Rate: 65 P: 10 NV: 130 QRS: 15 QRSD: 104 T: 63 QT: 432 QTc: 450 Interpretive Statements SINUS RHYTHM QRS(T) CONTOUR ABNORMALITY CONSIDER ANTEROLATERAL MYOCARDIAL DAMAGE POSSIBLY ABNORMAL ECG RI6.01 No previous ECG available for comparison
== END 2019-05-03 21:34 | disposition home or self-care (01) ==
LOC: ER 18:12
DX: K80.20 Calculus of gallbladder without cholecystitis without obstruction (principal); N30.00 Acute cystitis without hematuria; K21.9 Gastro-esophageal reflux disease without esophagitis; I11.0 Hypertensive heart disease with heart failure; I50.9 Heart failure, unspecified; J44.9 Chronic obstructive pulmonary disease, unspecified; E78.00 Pure hypercholesterolemia, unspecified; I25.10 Atherosclerotic heart disease of native coronary artery without angina pectoris; Z98.51 Tubal ligation status; Z95.5 Presence of coronary angioplasty implant and graft; K76.0 Fatty (change of) liver, not elsewhere classified; Z88.6 Allergy status to analgesic agent
CPT/HCPCS: 36415; 71046; 76700; 80053; 81001; 83690; 84484; 85025; 87086; 93005; 94640; 96374; 96375; 99285; J0696; J2270; J2405; J7620

== ENCOUNTER → 2020-12-06 | Outpatient (CLI) | payer OTHER ==
[2020-07-26 11:00] VITALS: BP 119/64
[~2020-12-06] MED LIST changes: -ALEN70TA6 PO; +ALEN70TA71 PO; +CEPH-264 PO; +CHOL10004 PO; +FURO40TA4 PO; +NITR0.4T24 SL; +POTA20TA4 PO; +PRED-220 PO; +PRED50TA PO
--- NOTE | 2020-12-06 14:23 | RAD ---
EXAM: Chest CT without intravenous contrast. HISTORY: Shortness of air. TECHNIQUE: Computed tomographic images of the chest were obtained without contrast. Multiplanar refor matting was performed. *One or more of the following individualized dose reduction techniques were utilized for this examina tion: 1. Automated exposure control. 2. Adjustment of the mA and/or kV according to patient size. 3. Use of iterative reconstruction technique. COMPARISON: 07/23/2020. FINDINGS: There is cardiomegaly. There is heavily calcified atherosclerotic plaque involving the aort a and coronary arteries. There are multiple prominent mediastinal and hilar lymph nodes, stable in ap pearance. There is trace bilateral pleural fluid. There is no pneumothorax. There is severe emphysema . There has been slight interval increase in 8 mm speculated nodular opacity within the lateral left up per lobe. This is allowing for differences in slice position and volume averaging. There is bilateral posterior dependent and basilar atelectasis. No consolidation is seen. There is no acute finding involving the upper abdomen. There is a small simple appearing cyst within the anterior left kidney. There is degenerative change throughout the spine. There is no acute or dane picious osseous lesion. IMPRESSION: 1. Slight interval increase in an 8 mm spiculated nodular opacity within the left upper lobe. This li kerri remains too small to characterize with PET/CT. [address] follow-up is recommended. 2. Pulmonary emphysema with bilateral basilar and posterior dependent atelectasis. There is also susp ected superimposed lower lobe predominant pleural parenchymal scarring. 3. Cardiomegaly and atherosclerosis. 4. Stable prominent mediastinal and hilar lymph nodes. These may be reactive in etiology. Electronically signed by: Janelle Martin MD (12/06/2020 2:21 PM) [id number]
== END ==
LOC: CT 12:56
PROVIDERS: ATTEND Internal Medicine Pulmonary Disease
DX: J43.9 Emphysema, unspecified (principal); R91.1 Solitary pulmonary nodule; J98.11 Atelectasis; I51.7 Cardiomegaly
CPT/HCPCS: 71250

== ENCOUNTER → 2021-04-23 | Outpatient (CLI) | payer OTHER ==
[2020-12-09 09:02] VITALS: BP 124/63
[~2021-04-23] MED LIST changes: +DOXY-181 PO; -DOXY100C14 PO; +POTA-121 PO; -POTA20TA4 PO
--- NOTE | 2021-04-23 14:43 | RAD ---
EXAM: CT OF THE CHEST WITHOUT CONTRAST. HISTORY: Pulmonary nodule follow-up. TECHNIQUE: Computed tomography of the chest was performed without intravenous contrast. One or more o f the following individualized dose reduction techniques were utilized for this examination: 1. Automated exposure control. 2. Adjustment of the mA and/or kV according to patient size. 3. Use of iterative reconstruction technique. COMPARISON: 12/06/2020, 01/01/2019. FINDINGS: Images of the upper abdomen reveal no acute abnormality. Bone windows reveal no suspicious lesions. Multiple right anterior rib fractures are chronic. There are no pathologically enlarged mediastinal or axillary lymph nodes. There is no pleural or gasper cardial effusion. The heart is not enlarged. The main pulmonary artery measures 3.8 cm. There are dif fuse coronary atherosclerotic calcifications. Spiculated nodule in the left upper lobe on image 18 measures 11 x 9 mm and is not clearly changed. A scarlike opacity in the left lower lobe is also stable since the prior study. Its largest solid travon on measures 12 x 8 mm on image 29. Centrilobular emphysema is at least moderate. IMPRESSION: 1. An 11 mm spiculated nodule in the left upper lobe is unchanged since November but increased since mor e remote studies. Another follow-up is suggested in 6 months. 2. Stable scarring in the left base. 3. At least moderate centrilobular emphysema. Findings suggesting pulmonary arterial hypertension. Electronically signed by: Aaliyah Mcgill MD (04/23/2021 2:40 PM) [facility]
== END ==
LOC: CT 13:12
PROVIDERS: ATTEND Internal Medicine Pulmonary Disease
DX: S22.41XA Multiple fractures of ribs, right side, initial encounter for closed fracture (principal); R91.1 Solitary pulmonary nodule; J43.2 Centrilobular emphysema; J98.4 Other disorders of lung; I25.10 Atherosclerotic heart disease of native coronary artery without angina pectoris; X58.XXXA Exposure to other specified factors, initial encounter; Y93.89 Activity, other specified; Y92.89 Other specified places as the place of occurrence of the external cause; Y99.8 Other external cause status
CPT/HCPCS: 71250

== ENCOUNTER → 2021-10-10 | Outpatient (CLI) | payer OTHER ==
[2020-12-09 09:02] VITALS: BP 124/63
--- NOTE | 2021-10-10 15:23 | RAD ---
XR THORACIC SPINE 3VIEWS History: Back pain Comparison: CT chest 10/10/2021 Technique: 3 views of the thoracic spine. Findings: Decreased osseous mineralization. There is no evidence for fracture. Alignment is normal. No destructive osseous lesions are seen. No significant facet disease. Disc spaces are preserved. Atherosclerotic calcification the aorta. Cardiac stents identified. IMPRESSION: 1. Decreased osseous mineralization in the thoracic spine without acute osseous abnormality or signi ficant degenerative change. Electronically signed by: Randolph Mao MD (10/10/2021 3:21 PM) [id number]
== END ==
LOC: RAD 09:57
PROVIDERS: ATTEND Internal Medicine
DX: M85.88 Other specified disorders of bone density and structure, other site (principal); I70.0 Atherosclerosis of aorta
CPT/HCPCS: 72072

== ENCOUNTER → 2021-10-10 | Outpatient (CLI) | payer OTHER ==
[2020-12-09 09:02] VITALS: BP 124/63
--- NOTE | 2021-10-10 12:38 | RAD ---
Examination: CT chest without contrast HISTORY: History of lung nodule COMPARISON: February 20, 2021 TECHNIQUE: Axial CT images of chest were performed without contrast. Coronal and sagittal reformats a re performed. Exposure: One or more of the following individualized dose reduction techniques were utilized for thi s examination: 1. Automated exposure control 2. Adjustment of the mA and/or kV according to patient size 3. Use of iterative reconstruction technique FINDINGS: The visualized thyroid gland grossly appears unremarkable. Central airways are patent. Mild cardiomeg katelyn. Diffuse coronary artery calcifications. Moderate aortic atherosclerosis. Enlarged appearing main pulmonary artery demonstrates could be pulmonary arterial hypertension. Severe bilateral lung emphys ematous changes. Small right pleural effusion. Small spiculated nodule identified left upper lobe of the lung measuring 1.3 cm, prior 1.1 cm. Linear opacity identified in the left lower lobe of the lung likely scarring or infiltrate. The visualized noncontrasted liver, spleen, adrenals grossly appears unremarkable Mild degenerative changes thoracic spine. IMPRESSION: 1. Small spiculated nodule identified in the left upper lobe of the lung measuring 1.3 cm, prior 1.1 cm. Consider PET/CT scan for further evaluation. 2. Severe bilateral lung emphysematous changes. 3. Small right pleural effusion. 4. Linear opacity identified in the left lower lobe of the lung likely scarring or infiltrate. Electronically signed by: Sarkis Mata MD (10/10/2021 12:33 PM) [id number]
== END ==
LOC: CT 09:58
PROVIDERS: ATTEND Internal Medicine Pulmonary Disease
DX: R91.1 Solitary pulmonary nodule (principal); J43.9 Emphysema, unspecified; I25.10 Atherosclerotic heart disease of native coronary artery without angina pectoris; I51.7 Cardiomegaly; I70.0 Atherosclerosis of aorta; J90 Pleural effusion, not elsewhere classified; R91.8 Other nonspecific abnormal finding of lung field; M47.814 Spondylosis without myelopathy or radiculopathy, thoracic region
CPT/HCPCS: 71250

== ENCOUNTER → 2021-11-09 | Outpatient (CLI) | payer OTHER ==
[2020-12-09 09:02] VITALS: BP 124/63
[~2021-11-09] MED LIST changes: +ACLI400A2 IH; -ACLI400A3 IH
--- NOTE | 2021-11-09 14:31 | RAD ---
Exam description: NM PET/CT SKULL BASE TO MID THIGH Date of service: 11/09/2021 12:00 PM Clinical history: 71 years-old Female with history of lung nodule Comparison: Chest CT from 10/10/2021 dating back to 11/28/2020 Technique: The patient has a measured blood glucose level of 157 mg/dL at the time of radiopharmacuet ical injection. The patient was injected with 11.8 mCi of [id number] intravenously and remained in a nahomy et dimly lit room for approximately 60 minutes for the uptake phase of the examination. The patient w as then placed in the PET/CT scanner and images were obtained from the top of the skull through the u pper thighs. CT images were used primarily for attenuation correction and localization. The attenuate d corrected and non corrected PET, CT, and fused PET/CT images were reviewed at the [facility] workstation. Background SUV max: Mediastinal SUV max: 1.83 Liver parenchymal SUV max 2.07 Findings: HEAD/NECK: Normal symmetric physiologic activity is identified within the extraocular muscles and bra in. No abnormal radiotracer activity is identified within the head and neck. No abnormally enlarged l ymph nodes are evident. CHEST: Severe bilateral centrilobular emphysematous changes. Relatively similar small right pleural e ffusion and possible trace left pleural effusion. Redemonstrated small spiculated nodule in the left upper lobe measuring 1.3. This demonstrates an SUV max of 0.66. Hypermetabolic activity along the rig ht pleural effusion measures 1.94 may be localizing to an area of atelectasis. Scarring and/or atelec tasis abutting the trace left pleural effusion with somewhat of a nodular appearance measuring up to 1.4 cm demonstrates a SUV max of 1.0. Similar scattered subpleural reticulations without associated h ypermetabolic activity. There is a small focus of increased FDG avidity (SUV max of 1.83) in the left lateral intercostal space of T7-T8 with no correlate on the uninfused images. There is also a subcen timeter subcutaneous focus in the left axilla on fused CT image 90/3 that demonstrates low level of F DG avidity with SUV max of 1.57. Given the superficial location this favors a inflamed sebaceous cyst . There is no abnormal supraclavicular, hilar, paratracheal, or mediastinal lymphadenopathy. Dilation o f the main pulmonary arterial trunk up to 4.4 cm which can be seen in setting of pulmonary arterial h ypertension. Heart is mildly enlarged. No pericardial effusion. Severe coronary artery atheroscleroti c disease. ABDOMEN/PELVIS: There is normal metabolic activity within the liver, spleen, kidneys, collecting syst em, and bowel. Similar nodular appearance of the left adrenal gland with no associated FDG avidity. N o abnormal lymphadenopathy or hypermetabolic activity is identified. SKELETAL STRUCTURES: There is normal physiologic activity within the osseous structures, bone marrow, and skeletal muscle. Impression: 1. Small spiculated nodule in the left upper lobe with very low FDG avidity. A hypometabolic adenocar cinoma is not entirely excluded. Recommend continued short interval follow-up CT or PET/CT in 3-6 mon ths. Additional nodular subpleural opacity in the left lower lobe favoring scarring and/or atelectasi s. Recommend attention on follow-up. 2. Small right and probable trace left pleural effusion with low hypermetabolic activity within the r ight pleural effusion. This may be secondary to atelectasis. Continued attention on short-term interv al follow-up is recommended. 3. Nonspecific focus of FDG avidity within the lateral intercostal region at the left T7-T8 space wit h no CT correlate as well as in the superficial subcutaneous soft tissues in the left axilla favoring a benign inflammatory sebaceous cyst. Continued attention on follow-up PQRS Compliance Statement: One or more of the following individualized dose reduction techniques were utilized for this examinat ion: 1. Automated exposure control 2. Adjustment of the mA and/or kV according to patient size 3. Use of iterative reconstruction technique Electronically signed by: Last Mcwilliams DO (11/09/2021 2:29 PM) [id number]
== END ==
LOC: PETSC 10:13
PROVIDERS: ATTEND Internal Medicine Critical Care Medicine
DX: R91.1 Solitary pulmonary nodule (principal); J43.2 Centrilobular emphysema; I51.7 Cardiomegaly; I25.10 Atherosclerotic heart disease of native coronary artery without angina pectoris; J90 Pleural effusion, not elsewhere classified; I28.1 Aneurysm of pulmonary artery
CPT/HCPCS: 78815; A9552